=== PATIENT | female | born 1980 | race Caucasian/White ===

== ENCOUNTER → 2021-01-14 14:21 | Outpatient (CLI) | payer BC, SELFPAY ==
--- NOTE | 2021-01-14 14:29 | US_ITS ---
PROCEDURE: US THYROID CLINICAL INDICATION: ABN RESULTS OF THYROID FUNCTION STUDIES COMPARISON: No exams were available for comparison FINDINGS: Right lobe: 1.5cm x 4.6cm x 1.8cm Left lobe: 1.1cm x 4.0cm x 1.6cm Isthmus: Unremarkable at 3 mm Additional findings: There are 2 cysts in the left lobe of the thyroid gland at 2 mm each. IMPRESSION: Mildly enlarged right lobe of the thyroid gland. There are 2 small cysts on the left. Dictated by: William Epps MD 01/15/2021 07:16 William Epps MD in [place] 01/15/2021 07:16
[2021-01-14 16:21] LABS: Anion Gap 15.2 mEq/L (5-15); Blood Urea Nitrogen 6 mg/dl (7-17); Calcium 10.2 mg/dl (8.4-10.2); Carbon Dioxide 23 mmol/L (22.0-30.0); Chloride 105 mmol/L (98-107); Estimated Glomerular Filt Rate 94 ml/min (>60); GFR (African American) 113 ML/MIN (>60); Glucose 102 mg/dl (74-100); Potassium 4.2 mmoL/L (3.5-5.1); Sodium 139 mmol/L (136-145)
[2021-01-16 14:01] LABS: Thyroid Peroxidase Antibodies <9 IU/mL (0-34)
== END ==
PROVIDERS: PCP Nurse Practitioner Family; Visit Provider Nurse Practitioner Family
DX: R94.6 Abnormal results of thyroid function studies (principal)
CPT/HCPCS: 36415; 76536; 80048; 86376

== ENCOUNTER 2021-05-19 14:09 | Emergency (ER) | payer BC, SELFPAY ==
[2021-05-19 14:10] VITALS: BP 181/95; PULSE 78; RESP 16; TEMP 37.7; O2SAT 98; BMI 33.3
--- NOTE | 2021-05-19 14:21 | HMH.EDGENADL ---
ED Disposition Clinical Impression: Hypertensive urgency Headache Qualifiers: Headache type: unspecified Headache chronicity pattern: acute headache Intractability: not intractable Qualified Code(s): R51.9 - Headache, unspecified Disposition: Home, Self-Care Condition on Discharge: Good Instructions: DI for Headache Additional Instructions: Take half of the lisinopril tonight around dinnertime. Take a full dose in the morning. Continue to take it every morning. Monitor your blood pressure once daily unless symptomatic. Return to the emergency department for headache, visual change, nausea/vomiting, chest pain Referrals: Ruthann Ramos [Primary Care Provider] - Time of Disposition: 17:06 - Critical Care Critical Care Time: No Attestation: On , the high probability of a clinically significant, sudden or life threatening deterioration of the following system(s) required my full and direct attention, intervention and personal management. The time I documented below is in addition to time spent performing reported procedures but includes the following listed in this critical care notation. Medical Decision Making - Medical Records Medical records reviewed: Yes: I reviewed the patient's medical records. - Josemanuel Inquiry Pt receiving controlled substance: No Vital Signs: 05/19/21 14:10 05/19/21 15:31 05/19/21 16:01 Temperature 99.8 F H Temperature Source Oral Pulse Rate 65 58 L Pulse Rate [Radial] 78 Respiratory Rate 16 18 20 Blood Pressure 181/85 H 152/87 H Blood Pressure [Right Arm] 181/95 H Blood Pressure Mean 117 108 Blood Pressure Mean [Right Arm] 123 Blood Pressure Position [Right Arm] Sitting 02 Sat by Pulse Oximetry 98 98 98 Oxygen Delivery Method Room Air 05/19/21 16:35 Temperature Temperature Source Pulse Rate 62 Pulse Rate [Radial] Respiratory Rate 20 Blood Pressure 184/101 H Blood Pressure [Right Arm] Blood Pressure Mean Blood Pressure Mean [Right Arm] Blood Pressure Position [Right Arm] 02 Sat by Pulse Oximetry Oxygen Delivery Method - Lab Data Lab results reviewed: Yes: I reviewed the patient's lab results. Lab Results 05/19/21 14:49: WBC 8.7, RBC 3.89 L, Hgb 13.9, Hct 34.4 L, MCV 88.5, MCH 35.7 H, MCHC 40.3 H*, RDW 14.2, Plt Count 299, MPV 7.4, Neut % (Auto) 70.1, Lymph % (Auto) 23.1, [place] % (Auto) 4.3, Eos % (Auto) 1.9, Baso % (Auto) 0.5, Neut # (Auto) 6.1, Lymph # (Auto) 2.0, [place] # (Auto) 0.4, Eos # (Auto) 0.2, Baso # (Auto) 0.1 05/19/21 14:49: Sodium 140, Potassium 3.9, Chloride 106, Carbon Dioxide 25, Anion Gap 12.9, BUN 7, Creatinine 0.70, Estimated Creat Clear 147, Estimated GFR 94, Est GFR ( Amer) 113, Glucose 114 H, Calcium 9.1, Troponin I < 0.01 Result diagrams: 05/19/21 14:49 05/19/21 14:49 Orders (Tests/Meds): ED MEDICATIONS Discontinued Medications Generic Name Dose Route Start Last Admin Trade Name Elisa PRN Reason Stop Dose Admin Acetaminophen 650 mg 05/19/21 15:38 05/19/21 15:48 Acetaminophen 325mg Tab PO 05/19/21 15:39 650 mg ONCE ONE Administration Clonidine HCl 0.1 mg 05/19/21 15:14 05/19/21 15:48 Clonidine 0.1mg Tablet PO 05/19/21 15:15 0.1 mg ONCE ONE Administration Hydralazine HCl 10 mg 05/19/21 16:31 05/19/21 16:33 Hydralazine 20mg/Ml Vial IV 05/19/21 16:32 10 mg ONCE ONE Administration Ketorolac Tromethamine 15 mg 05/19/21 15:38 05/19/21 15:48 Ketorolac 30mg/Ml Vial IV 05/19/21 15:39 15 mg ONCE ONE Administration ORDERS Category Date Time Status Troponin I Q3H Lab 05/19/21 17:30 Ordered - ECG Data Tracing #1 I reviewed this ECG and interpreted as documented below: Sinus rhythm, 60 bpm, no ST elevation or depression, normal intervals, no ectopy. ECG initial impression date: 05/19/21 ECG initial impression time: 16:33 Medical Decision Narrative: 40yo F evaluated for hypertensive urgency and headache. Patient in no acute distress on initial
[2021-05-19 14:56] LABS: Basophils # 0.1 K/mm3 (0-0.2); Basophils % 0.5 % (0.1-2.0); Eosinophils # 0.2 K/mm3 (0.0-0.4); Eosinophils % 1.9 % (0.1-12.0); Hematocrit 34.4 % (37.0-47.0); Hemoglobin 13.9 g/dL (12.2-16.2); Lymphocytes % 23.1 % (10-50); Mean Corpuscular Hemoglobin 35.7 pg (27.0-31.2); Mean Corpuscular Volume 88.5 fl (81-99); Mean Platelet Volume 7.4 fl (7.4-10.4); Monocytes # 0.4 K/mm3 (0.1-1.0); Monocytes % 4.3 % (1.7-9.3); Neutrophils # 6.1 K/mm3 (1.8-7.8); Neutrophils % 70.1 % (37.0-80.0); Platelet Count 299 K/mm3 (142-424); Red Blood Count 3.89 M/mm3 (4.20-5.40); Red Cell Distribution Width 14.2 % (11.5-17.5); White Blood Count 8.7 K/mm3 (4.8-10.8)
[2021-05-19 15:00] LABS: Chloride 106 mmol/L (98-107); Sodium 140 mmol/L (136-145)
[2021-05-19 15:01] LABS: Potassium 3.9 mmoL/L (3.5-5.1)
[2021-05-19 15:03] LABS: Blood Urea Nitrogen 7 mg/dl (7-17); Creatinine Clearance Estimated 147 mL/min (50-200); Estimated Glomerular Filt Rate 94 ml/min (>60); GFR (African American) 113 ML/MIN (>60)
[2021-05-19 15:04] LABS: Anion Gap 12.9 mEq/L (5-15); Calcium 9.1 mg/dl (8.4-10.2); Carbon Dioxide 25 mmol/L (22.0-30.0); Glucose 114 mg/dl (74-100)
[2021-05-19 15:06] LABS: Mean Corpuscular HGB Conc 40.3 g/dL (31.8-35.4)
[2021-05-19 15:17] LABS: Troponin I < 0.01 ng/ml (0.00-0.034)
[2021-05-19 15:31] VITALS: BP 181/85; PULSE 65; RESP 18; O2SAT 98
[2021-05-19 16:01] VITALS: BP 152/87; PULSE 58; RESP 20; O2SAT 98
--- NOTE | 2021-05-19 16:26 | ECG_ITS ---
APPROVED REPORT Exam: Resting ECG HR:60 bpm ECG Measurements Heart Rate 60 AXES AK 140 P 27 QRSd 86 QRS -10 QT 426 T 7 QTc 426 Conclusion Normal sinus rhythm Minimal voltage criteria for LVH, may be normal variant Borderline ECG Electronically signed by : Meño Valdez, 05/20/2021 18:51:57
[2021-05-19 16:35] VITALS: BP 184/101; PULSE 62; RESP 20
[2021-05-19 17:09] VITALS: BP 175/99; PULSE 66; RESP 16; TEMP 36.9; O2SAT 99
== END 2021-05-19 17:10 | disposition home or self-care (01) ==
PROVIDERS: Emergency Provider Family Medicine; PCP Nurse Practitioner Family
DX: I16.0 Hypertensive urgency (principal); F41.8 Other specified anxiety disorders; Z79.899 Other long term (current) drug therapy
CPT/HCPCS: 80048; 84484; 85025; 93005; 99282; 99283

== ENCOUNTER → 2021-10-17 10:16 | Outpatient (CLI) | payer BC, SELFPAY | PROVIDERS: PCP Nurse Practitioner Family; Visit Provider Nurse Practitioner | DX: U07.1 COVID-19 (principal) | CPT/HCPCS: C9803; U0003; U0005 ==

== ENCOUNTER → 2021-10-25 10:05 | Outpatient (CLI) | payer BC, SELFPAY | PROVIDERS: PCP Nurse Practitioner Family; Visit Provider Nurse Practitioner | DX: U07.1 COVID-19 (principal) | CPT/HCPCS: C9803; U0003; U0005 ==

== ENCOUNTER → 2021-10-31 12:34 | Outpatient (CLI) | payer BC, SELFPAY | PROVIDERS: PCP Nurse Practitioner Family; Visit Provider Nurse Practitioner | DX: U07.1 COVID-19 (principal) | CPT/HCPCS: C9803; U0003; U0005 ==

== ENCOUNTER → 2021-12-05 14:12 | Outpatient (POV) | payer BC, SELFPAY ==
[2021-12-05 14:48] VITALS: BP 141/82; PULSE 86; RESP 18; O2SAT 98; BMI 33.6
--- NOTE | 2021-12-06 06:44 | HMH.PMCON ---
Assessment and Plan (1) CRPS (complex regional pain syndrome type I) Status: Chronic Category: Medical Code(s): G90.50 - Complex regional pain syndrome I, unspecified (2) Low back pain Status: Chronic Category: Medical Code(s): M54.50 - Low back pain, unspecified (3) Degenerative joint disease (DJD) of lumbar spine Status: Chronic Category: Medical Code(s): M47.816 - Spondylosis without myelopathy or radiculopathy, lumbar region (4) Lumbar spondylosis Status: Chronic Category: Medical Code(s): M47.816 - Spondylosis without myelopathy or radiculopathy, lumbar region (5) Lumbar facet arthropathy Status: Chronic Category: Medical Code(s): M47.816 - Spondylosis without myelopathy or radiculopathy, lumbar region - Assessment and plan all Dx Assessment and Plan for all problems:: Patient has been referred to our clinic for end of life of stimulator device. She does not want the device removed along with the leads so that she can have a device implanted that is MRI compatible. She was referred to the clinic by the [employer] stimulator bilingual sales representative. Dr. Garibay did implant the device. She is unsure if she has paddle leads. We will send her for an x-ray today to determine the type of leads with the device. The patient does say she wants the leads removed so that she is able to undergo MRI in the future if warranted. We will see the patient back after the x-ray so that Dr. De La Cruz can determine the plan of care. Patient has been instructed to contact the clinic with any concerns before the next appointment. Dr. De La Cruz has reviewed this note and agrees with this plan of care. This note was dictated using voice recognition software and make contain errors or omissions. HPI - Data of Consult Patient: new to practice Requesting Physician: Mackenzie Connolly APRN - Consult Narrative Reason for consult: End of life stimulator History of present illness: Ms. Huffman is a 41 year old female who presents today for consultation for stimulator end-of-life. Patient says that Dr. Garibay implanted a [employer] stimulator approximately 5 years ago. She was seeing a pain management provider but has since retired. She says that the device was implanted for CRPS type one of her lower extremity. Patient says that she had a fall at her workplace fracturing her knee. She did undergo surgical intervention but continued to have significant pain. She does also have low back pain with bulging disks. She says that the stimulator has helped both areas until the last year. The device no longer charges appropriately. She is currently seeing Dr. Mcfarland for injective therapy in her lumbar spine. Most recently she did undergo RFA of lumbar spine which is giving her significant relief. She is here today to discuss possible change out of device. She was referred to our clinic by the [employer] stimulator bilingual sales representative. Patient says that she would like the device as well as the leads removed so that she can undergo implant of an MRI compatible device. CC: Mackenzie Connolly APRN [facility] History I have reviewed the patient's past medical history: Yes Medical History: Reports:: Anxiety, Depression, Hypertension *Have you ever received a pneumonia vaccine?: No *Have you received a flu vaccine this season?: No Other Surgeries: Yes: Cholecystectomy, Other - *Social History Smoking Status: Never smoker Alcohol Intake: never Substance Use Type: denies use *Occupational Status:: employed *Travel in the last 8 weeks: None - Psychiatric History Pschychiatric History:: Reports:: Anxiety, Depression Family Hx:: Hypertension, Diabetes Review of Systems - Review of Systems Review of Systems General: No recent weight changes, no fever, no sleep disturbances Respiratory: No cough, no shortness of air, no recurring pulmonary infections Cardiovascular/peripheral vascular: No chest pain, no palpitations, no edema, no sh
== END ==
PROVIDERS: Visit Provider Clinical Nurse Specialist Family Health
DX: G90.50 Complex regional pain syndrome I, unspecified (principal); M47.816 Spondylosis without myelopathy or radiculopathy, lumbar region
CPT/HCPCS: 99202; G0463

== ENCOUNTER → 2021-12-05 15:15 | Outpatient (CLI) | payer BC, SELFPAY ==
--- NOTE | 2021-12-05 15:24 | XR_ITS ---
FINAL REPORT CLINICAL HISTORY: . check pain stim leads FINDINGS: THORACIC SPINE A single view was obtained. A thoracic stimulator device resides at the T9-T10 level. There is no acute fracture. There is no malalignment. There is mild thoracic scoliosis convex to the right. The disc spaces are preserved. There is no soft tissue abnormality. IMPRESSION: Thoracic stimulator device resides at the T9-T10 level. LUMBAR SPINE A single view was obtained. A stimulator device is present in the superior right gluteal region. There is no acute fracture. There is no malalignment. There are postoperative changes from right SI joint fusion. An IUD is present in the pelvis. There is a large amount of stool throughout the colon. IMPRESSION: A stimulator device resides in the superior right gluteal region. Reviewed, Interpreted and Dictated by Yvon Busby MD Transcribed by Michelle Nowak Authenticated by Yvon Busby MD on 12/05/2021 04:39:[address] [facility]
== END ==
PROVIDERS: PCP Nurse Practitioner Family; Visit Provider Clinical Nurse Specialist Family Health
DX: M54.6 Pain in thoracic spine (principal)
CPT/HCPCS: 72084

== ENCOUNTER → 2022-01-12 11:28 | Outpatient (POV) | payer BC, SELFPAY ==
[2022-01-12 13:57] VITALS: BP 127/77; PULSE 72; RESP 20; TEMP 36.9; O2SAT 98; BMI 33.6
--- NOTE | 2022-01-12 14:37 | HMH.PAINSOAP ---
[facility] Pain Management SOAP Note Subjective:: Is very pleasant 41-year-old white female who presents for follow-up. She is currently being treated for degenerative disc disease lumbar spine with lumbar radiculopathy. She has a spinal cord stimulator with the [employer] system with end-of-life stimulator device. She is interested in having the device (3 and leads) exchanged to an MRI compatible system. She recently underwent an x-ray at the last clinic visit and she has paddle leads in place. Dr. Garibay implanted the spinal cord stimulator. She rates her pain today is a 6 out of 10. Objective:: General: Alert and oriented x3, no acute distress, pleasant and cooperative Lungs: Resps E/U, symmetric chest expansion Eyes: PERRL Musculoskeletal: limited flexion and extension of the lumbar spine secondary to pain. Deep tendon reflexes were normal in bilateral lower extremities. Motor exam was grossly intact in the bilateral lower extremities, antalgic gait noted. Neurological: Speech is clear, health care facilities inspector equal, no gross sensory deficits Assessment:: Degenerative disc disease of lumbar spine with lumbar radiculopathy Plan:: Discussed with the patient that since she does have paddle leads in place will refer her to Dr. Garibay with neurosurgery for further evaluation and SCS lead and battery exchange to an MRI compatible system. We will follow-up with this patient in 1 month for reassessment of her chronic pain symptoms. Josemanuel and prior drug screens were reviewed and appropriate. [facility] History Medical History: Reports:: Anxiety, Depression, Hypertension Denies:: Cancer, Diabetes Mellitus Type 1, Diabetes Mellitus Type 2, Internal Pacemaker, MRSA *Have you ever received a pneumonia vaccine?: No *Have you received a flu vaccine this season?: No Other Surgeries: Yes: Cholecystectomy, Other. No: Pacemaker Amputation: No Fractures: Yes - *Social History Smoking Status: Light tobacco smoker Tobacco Type: cigarettes # Packs/Day (cigarettes): 1 Alcohol Intake: current Alcohol Intake Frequency:: holidays/special occasions only Substance Use Type: denies use *Occupational Status:: other Housing: house Household Members: spouse, family *Travel in the last 8 weeks: None - Psychiatric History Pschychiatric History:: Reports:: Anxiety, Depression Family Hx:: Hypertension, Diabetes
== END ==
PROVIDERS: Visit Provider Anesthesiology Pain Medicine
DX: M51.16 Intervertebral disc disorders with radiculopathy, lumbar region (principal)
CPT/HCPCS: 99212; G0463

== ENCOUNTER → 2022-02-13 10:03 | Outpatient (POV) | payer BC, SELFPAY ==
[2022-02-13 10:15] VITALS: BP 127/79; PULSE 66; RESP 17; TEMP 36.7; O2SAT 98; BMI 33.6
--- NOTE | 2022-02-13 12:33 | HMH.PAINSOAP ---
[facility] Pain Management SOAP Note Subjective:: Patient is a pleasant 41-year-old female who presents today for follow-up. She is currently being treated for degenerative disc disease of lumbar spine with lumbar radiculopathy symptoms, and chronic left knee pain. In 2012, patient says that she broke her kneecap. This was fixed by Dr. Mohinder Bain in [place]. However, she continued to have nerve pain around her kneecap because of her surgery. Then about 5 years ago, she went to see a pain specialist in [place]. She was recommended to have a spinal cord stimulator. She saw Dr. Whitmore who place a [employer] spinal cord stimulator with paddle leads about 5 years ago. She has been having significant relief from the spinal cord stimulator however it is at end-of-life. She presents to us to see if we can change her battery. Additionally, she was unsure if her paddle leads are MRI compatible and wants to know we can change it to something that is MRI compatible. Since then, we have reached out with the [employer] representatives who said that they have looked up her paddle leads and they are MRI compatible. Rates pain at 6 out of 10 Review of Systems: General: No recent weight changes, no fever, no sleep disturbances Respiratory: No cough, no shortness of air, no recurring pulmonary infections Cardiovascular/peripheral vascular: No chest pain, no palpitations, no edema, no shortness of breath Gastrointestinal: No new onset incontinence, normal bowel movements reported Genitourinary: No new onset incontinence Musculoskeletal: Low back pain, left knee pain Psychiatric: [Normal mood/affect] Neurological: [Denies weakness in extremities], [denies balance issues] Objective:: Physical Exam: General: Alert and oriented x3, no acute distress, pleasant and cooperative, [on room air] Lungs: Respirations even and unlabored, symmetrical chest expansion Eyes: PERRL Musculoskeletal: Flexion and extension of lumbar [spine] somewhat guarded secondary to pain, [antalgic gait noted] Neurological: Speech clear, no gross sensory deficit Assessment:: Degenerative disease of lumbar spine with lumbar radiculopathy symptoms Chronic left knee pain Plan:: Patient presents with degenerative disc disease of the lumbar spine with lumbar radiculopathy symptoms and intractable left knee pain secondary to knee surgery. Patient has tried and failed several conservative therapies including oral medication, injective therapy, physical therapy and at home exercises for greater than 6 weeks. She has a [employer] spinal cord stimulator that was placed 5 years ago. This has been helping manage her pain significantly. She is not on any scheduled medications. However, her spinal cord stimulator is at end-of-life and need to be changed. We will schedule the patient for a battery change with a [employer] spinal cord stimulator. Risks and benefits of the procedure have been explained to the patient. Patient would like to proceed with the procedure. Patient has been instructed to contact the clinic with any concerns before the next appointment. Dr. De La Cruz has reviewed this note and agrees with this plan of care. This note was dictated using voice recognition software and make contain errors or omissions. [facility] History Medical History: Reports:: Anxiety, Depression, Hypertension Denies:: Cancer, Diabetes Mellitus Type 1, Diabetes Mellitus Type 2, Internal Pacemaker, MRSA *Have you ever received a pneumonia vaccine?: No *Have you received a flu vaccine this season?: No Other Surgeries: Yes: Cholecystectomy, Other. No: Pacemaker Amputation: No Fractures: Yes - *Social History Smoking Status: Light tobacco smoker Tobacco Type: cigarettes # Packs/Day (cigarettes): 1 Alcohol Intake: current Alcohol Intake Frequency:: holidays/special occasions only Substance Use Type: denies use *Occupational Status:: employed Housing: house Household Me
== END ==
PROVIDERS: Visit Provider Student in an Organized Health Care Education/Training Program
DX: M51.16 Intervertebral disc disorders with radiculopathy, lumbar region (principal); M25.562 Pain in left knee; G89.29 Other chronic pain
CPT/HCPCS: 99212; G0463

== ENCOUNTER → 2022-03-13 15:29 | Outpatient (CLI) | payer BC, SELFPAY ==
[2022-03-13 16:38] LABS: Basophils # 0.2 K/mm3 (0-0.2); Basophils % 1.8 % (0.1-2.0); Eosinophils # 0.1 K/mm3 (0.0-0.4); Eosinophils % 0.9 % (0.1-12.0); Hematocrit 41.4 % (37.0-47.0); Hemoglobin 13.6 g/dL (12.2-16.2); Lymphocytes # 2.4 K/mm3 (0.7-4.5); Lymphocytes % 26.6 % (10-50); Mean Corpuscular HGB Conc 32.7 g/dL (31.8-35.4); Mean Corpuscular Hemoglobin 30.6 pg (27.0-31.2); Mean Corpuscular Volume 93.4 fl (81-99); Mean Platelet Volume 7.7 fl (7.4-10.4); Monocytes # 0.6 K/mm3 (0.1-1.0); Monocytes % 6.1 % (1.7-9.3); Neutrophils # 5.9 K/mm3 (1.8-7.8); Neutrophils % 64.7 % (37.0-80.0); Platelet Count 400 K/mm3 (142-424); Red Blood Count 4.43 M/mm3 (4.20-5.40); Red Cell Distribution Width 13.6 % (11.5-17.5); White Blood Count 9.1 K/mm3 (4.8-10.8)
[2022-03-13 17:21] LABS: Anion Gap 12.3 mEq/L (5-15); Blood Urea Nitrogen 8 mg/dl (7-17); Calcium 9.3 mg/dl (8.4-10.2); Carbon Dioxide 26 mmol/L (22.0-30.0); Chloride 105 mmol/L (98-107); Estimated Glomerular Filt Rate 80 ml/min (>60); GFR (African American) 97 ML/MIN (>60); Glucose 120 mg/dl (74-100); Potassium 4.3 mmoL/L (3.5-5.1); Sodium 139 mmol/L (136-145)
== END ==
PROVIDERS: Visit Provider Anesthesiology
DX: Z01.812 Encounter for preprocedural laboratory examination (principal); Z11.52 Encounter for screening for COVID-19; M51.36 Other intervertebral disc degeneration, lumbar region
CPT/HCPCS: 36415; 80048; 85025; C9803; U0003; U0005

== ENCOUNTER 2022-03-14 06:59 | Day surgery (SDC) | payer BC, SELFPAY ==
[2022-03-10 15:16] VITALS: BMI 33.6
[2022-03-14 07:40] VITALS: BP 123/71; PULSE 65; RESP 18; TEMP 36.3; O2SAT 99
[2022-03-14 07:48] LABS: Urine Pregnancy, HCG Qual. Negative (Negative)
--- NOTE | 2022-03-14 08:27 | HMH.ANESCL ---
[facility] Anesthesia Checklist - Patient Identification Patient Identification: Arm Band - Structural Data Admitted From: Home Planned Operative Procedure/s: SCS lead revision Consent for Planned Operative Procedure(s) Verified: Yes - NPO Status Verified Time NPO: 00:00 - Additional verifications Anesthesia Reactions: No Hx Blood Transfusions: No Blood Transfusion Reaction: No - Airway Assessment C-Spine Mobility Assessed: Yes TMJ Mobility Assessed: Yes Dentition: Good Dentition - Neurological Assessment Level of Consciousness: Awake Hx Seizures: No Numbness or tingling in extremities: No - Anesthesia Plan Anesthesia Risk discussed: Yes Anesthesia Plan: Verified ASA Class: II Anesthesia Type: MAC [facility] History I have reviewed the patient's past medical history: Yes Medical History: Reports:: Anxiety, Depression, Hypertension Denies:: Cancer, Diabetes Mellitus Type 1, Diabetes Mellitus Type 2, Internal Pacemaker, MRSA, Seizures *Have you ever received a pneumonia vaccine?: No *Have you received a flu vaccine this season?: No Other Medical History: Denies: Blood Transfusion Reaction Anesthesia experience/problems:: None Other Surgeries: Yes: Cholecystectomy, Other. No: Pacemaker Amputation: No Fractures: Yes - *Social History Last grade of school completed: Advanced degree Smoking Status: Light tobacco smoker Tobacco Type: cigarettes # Packs/Day (cigarettes): 1 Alcohol Intake: current Alcohol Intake Frequency:: holidays/special occasions only Substance Use Type: denies use *Occupational Status:: employed Housing: house Household Members: spouse, family *Travel in the last 8 weeks: None - Psychiatric History Pschychiatric History:: Reports:: Anxiety, Depression Family Hx:: Hypertension, Diabetes
[2022-03-14 09:46] VITALS: BP 140/91; PULSE 80; RESP 18; TEMP 36.5; O2SAT 96
--- NOTE | 2022-03-14 09:48 | HMH.OPNOTE ---
Date of procedure: 03/14/22 Pre-op Diagnosis:: Degenerative disc disease of lumbar spine with lumbar radiculopathy symptoms and end-of-life spinal cord stimulator generator with surgical paddle leads in place Post-op Diagnosis:: Same Procedure performed:: Replacement spinal cord stimulator generator Surgeon:: Aldo De La Cruz MD MARINE WATER TENDER:: Other Anesthesia: MAC Estimated blood loss (mL): 2 Clinical Note:: This patient is a pleasant 41-year-old white female who we are treating for degenerative disc disease of lumbar spine with lumbar radiculopathy symptoms. She currently has a [employer] spinal cord stimulator in place with paddle leads. This was placed approximately 5 years ago. Her leads are MRI compatible. Her generator is nearing end-of-life. We will replace her generator today with a [employer] alpha wave technical report writer MRI compatible battery. Operative findings:: None Operative note:: Informed consent was obtained risk and benefits of the procedure explained to the patient. Patient was taken to the operating room placed prone on the procedure table. She was prepped and draped in sterile fashion. The skin and subcutaneous tissues overlying the battery were anesthetized using lidocaine. I made an incision and dissected out the existing battery. I took the leads out and replaced the battery with the alpha wave technical report writer battery. We put leads in the battery and checked impedances are found to be okay. The battery was placed in the pocket the pocket was irrigated with antibiotic solution. The incision was then closed with 2-0 Vicryl followed by 4-0 nylon. A wound VAC was placed over the incision. The patient was taken recovery in stable condition. Patient tolerated procedure well with no complications. Patient was discharged home neurologically intact with good relief of pain symptoms. Patient was programmed by the [employer] special service representative with good stimulation in all areas of pain. Plan and disposition: We will follow-up with this patient in 1 week for wound check and reprogramming. We will follow-up in 2 weeks for suture removal. If she has any problems or questions she is to call us back in the pain clinic. Condition: stable Disposition: PACU Complications:: None
[2022-03-14 10:01] VITALS: BP 121/72; PULSE 71; RESP 18; O2SAT 95
[2022-03-14 10:16] VITALS: BP 127/75; PULSE 73; RESP 18; O2SAT 98
[2022-03-14 10:46] VITALS: BP 134/85; PULSE 67; RESP 18; O2SAT 96
[2022-03-14 11:16] VITALS: BP 112/76; PULSE 65; RESP 18; TEMP 36.7; O2SAT 97
== END 2022-03-14 11:16 | disposition home or self-care (01) ==
LOC: OR 07:01
PROVIDERS: PCP Nurse Practitioner Family; Visit Provider Anesthesiology
PROC: (CPT 63685; principal; 2022-03-14 08:30)
DX: M51.16 Intervertebral disc disorders with radiculopathy, lumbar region (principal); Z96.82 Presence of neurostimulator; I10 Essential (primary) hypertension; F41.9 Anxiety disorder, unspecified; F32.A Depression, unspecified; Z83.3 Family history of diabetes mellitus; Z82.49 Family history of ischemic heart disease and other diseases of the circulatory system; Z88.8 Allergy status to other drugs, medicaments and biological substances
CPT/HCPCS: 63685; 81025; 96374; C1820; J2405

== ENCOUNTER → 2022-03-20 09:15 | Outpatient (POV) | payer BC, SELFPAY ==
[2022-03-20 09:17] VITALS: BP 118/70; PULSE 81; RESP 18; TEMP 37.3; O2SAT 97; BMI 33.6
--- NOTE | 2022-03-20 11:07 | P.CONS_ITS ---
[facility] Pain Management SOAP Note Subjective:: Patient is a pleasant 41-year-old female who presents today for follow-up. Patient is currently being treated for degenerative disc disease of the lumbar spine with lumbar radiculopathy symptoms. Patient's [employer] spinal cord stimulator generator was at end-of-life. Patient is here today to follow- up after the replacement of this generator on March 14, 2022. Patient has surgical paddle leads in place. Patient says that her stimulator is working well and still providing significant relief. Denies any issues after the procedure. We will remove the wound VAC today. Rates pain as 5 out of 10. Patient is not on any scheduled medications. [facility] #[id number] Review of Systems: General: No recent weight changes, no fever, no sleep disturbances Respiratory: No cough, no shortness of air, no recurring pulmonary infections Cardiovascular/peripheral vascular: No chest pain, no palpitations, no edema, no shortness of breath Gastrointestinal: No new onset incontinence, normal bowel movements reported Genitourinary: No new onset incontinence Musculoskeletal: Low back pain Psychiatric: [Normal mood/affect] Neurological: [Denies weakness in extremities], [denies balance issues] Objective:: Physical Exam: General: Alert and oriented x3, no acute distress, pleasant and cooperative Lungs: Respirations even and unlabored, symmetrical chest expansion Eyes: PERRL Musculoskeletal: Flexion and extension of lumbar [spine] somewhat guarded secondary to pain, [antalgic gait noted] Skin: Surgical incisions are healing well and well approximated. There is no drainage, erythema, and swelling. Neurological: Speech clear, no gross sensory deficit Assessment:: Degenerative disc disease of the lumbar spine with lumbar radiculopathy symptoms Status post replacement of spinal cord stimulator generator Plan:: Patient continues to have significant relief after the replacement of the patient's spinal cord stimulator generator. Wound VAC was removed today. Surgical incisions are healing well and well approximated. There is no drainage, erythema, and swelling. We will follow-up with this patient in 2 weeks for suture removal. Patient will also see one of the [employer] representatives during her follow-up appointment. Patient has been instructed to contact the clinic with any concerns before the next appointment. Dr. De La Cruz has reviewed this note and agrees with this plan of care. This note was dictated using voice recognition software and make contain errors or omissions. [facility] History Medical History: Reports:: Anxiety, Depression, Hypertension Denies:: Cancer, Diabetes Mellitus Type 1, Diabetes Mellitus Type 2, Internal Pacemaker, MRSA, Seizures *Have you ever received a pneumonia vaccine?: No *Have you received a flu vaccine this season?: No Other Medical History: Denies: Blood Transfusion Reaction Other Surgeries: Yes: Cholecystectomy, Other. No: Pacemaker Amputation: No Fractures: Yes - *Social History Smoking Status: Light tobacco smoker Tobacco Type: cigarettes # Packs/Day (cigarettes): 1 Alcohol Intake: current Alcohol Intake Frequency:: holidays/special occasions only Substance Use Type: denies use *Occupational Status:: employed Housing: house Household Members: spouse, family *Travel in the last 8 weeks: None - Psychiatric History Pschychiatric History:: Reports:: Anxiety, Depression Family Hx:: Hypertension, Diabetes
== END ==
PROVIDERS: Visit Provider Student in an Organized Health Care Education/Training Program
DX: M51.16 Intervertebral disc disorders with radiculopathy, lumbar region (principal)
CPT/HCPCS: 99212; G0463

== ENCOUNTER → 2022-04-04 09:22 | Outpatient (POV) | payer BC, SELFPAY ==
[2022-04-04 09:44] VITALS: BP 121/72; PULSE 62; RESP 18; TEMP 36.6; O2SAT 96; BMI 33.6
--- NOTE | 2022-04-04 09:46 | P.CONS_ITS ---
[facility] Pain Management SOAP Note Subjective:: Is a pleasant 41-year-old female who recently had a battery change for her spinal cord stimulator. She is doing fantastic. She had a recent visit with the spinal cord stimulator rep. Her coverage is fantastic. She is not having any significant pain. Patient's wound looks normal. Patient's Josemanuel [id number] is been reviewed and appropriate. Objective:: Patient is awake alert [place] x3. No acute distress. Flexion-extension lumbar spine normal. Deep tendon reflexes upper and lower extremities normal. Motor strength upper and lower extremities normal. There is no gross sensory deficit. Gait is normal. Assessment:: Degenerative disc disease lumbar spine multilevels. Lumbar radiculopathy symptoms. Plan:: Patient will follow up with us on an as-needed basis. [facility] History Medical History: Reports:: Anxiety, Depression, Hypertension Denies:: Cancer, Diabetes Mellitus Type 1, Diabetes Mellitus Type 2, Internal Pacemaker, MRSA, Seizures *Have you ever received a pneumonia vaccine?: No *Have you received a flu vaccine this season?: No Other Medical History: Denies: Blood Transfusion Reaction Other Surgeries: Yes: Cholecystectomy, Other. No: Pacemaker Amputation: No Fractures: Yes - *Social History Smoking Status: Light tobacco smoker Tobacco Type: cigarettes # Packs/Day (cigarettes): 1 Alcohol Intake: current Alcohol Intake Frequency:: holidays/special occasions only Substance Use Type: denies use *Occupational Status:: employed Housing: house Household Members: spouse, family *Travel in the last 8 weeks: Inside the [place] - Psychiatric History Pschychiatric History:: Reports:: Anxiety, Depression Family Hx:: Hypertension, Diabetes
== END ==
PROVIDERS: Visit Provider Nurse Anesthetist, Certified Registered
DX: M51.16 Intervertebral disc disorders with radiculopathy, lumbar region (principal)
CPT/HCPCS: 99213; G0463

== ENCOUNTER → 2022-10-02 08:45 | Outpatient (POV) | payer BC, SELFPAY ==
[2022-10-02 08:54] VITALS: BP 137/80; PULSE 75; RESP 18; O2SAT 97; BMI 33.6
--- NOTE | 2022-10-02 09:24 | A.OFFVIS_ITS ---
[facility] Pain Management SOAP Note Subjective:: Patient is a pleasant 42-year-old female who presents today for follow-up. We are currently treating the patient for degenerative disc disease of lumbar spine with lumbar radiculopathy symptoms, post spinal cord stimulator generator replacement. Today the patient rates her pain a 4 out of 10. Patient denies any new trauma or injury. Patient denies any change location or type of pain she experiences. Patient states her pain is in her neck and low back. Patient states she does frequently get injections at her orthopedic doctor and her last 1 was a cervical epidural. Patient states that this made her pain symptoms worse and is interested in injections we may be able to provide to improve her symptoms. Patient states that her spinal cord stimulator is doing well and does not need reprogramming. Patient states that she spoke with the [employer] medical collections representative just last week. Patient is currently prescribed gabapentin 300 mg 3 times a day by Dr. Juliane Hernandez. Patient denies any side effects from this medication. She states this medication does help manage her neuropathy symptoms. Patient states she has not had any recent imaging with our hospital however she has had some at her orthopedic physician's office. Her Josemanuel is [id number]. It has been reviewed and appropriate. Review of Systems: General: No recent weight changes, no fever, no sleep disturbances Respiratory: No cough, no shortness of air, no recurring pulmonary infections Cardiovascular/peripheral vascular: No chest pain, no palpitations, no edema, no shortness of breath Gastrointestinal: No new onset incontinence, normal bowel movements reported Genitourinary: No new onset incontinence Musculoskeletal: Low back pain, neck pain Psychiatric: [Normal mood/affect] Neurological: [Denies weakness in extremities], [denies balance issues] Objective:: Physical Exam: General: Alert and oriented x3, no acute distress, pleasant and cooperative Lungs: Respirations even and unlabored, symmetrical chest expansion Eyes: PERRL Musculoskeletal: Flexion and extension of cervical, lumbar [spine] somewhat guarded secondary to pain, [antalgic gait noted] Neurological: Speech clear, no gross sensory deficit Assessment:: Degenerative disc disease of cervical and lumbar spine with cervical and lumbar radiculopathy symptoms, post spinal cord stimulator generator replacement Plan:: Patient is experiencing significant pain in her neck and low back during today's visit. Patient did have limited range of motion of her cervical and lumbar spine. I have discussed with the patient that we will get her to sign a release and get a copy of her imaging. I have counseled the patient that she may benefit from a epidural injection. Risk and benefits were discussed with the patient. She would like to proceed forward with this plan of care. I will wait until I have imaging and contact the patient via telephone to confirm what level epidural would be most beneficial. Patient has been instructed to contact the clinic with any concerns before the next appointment. Dr. De La Cruz has reviewed this note and agrees with this plan of care. This note was dictated using voice recognition software and make contain errors or omissions. PFSH PFSH Social History Smoking Status: Light tobacco smoker tobacco type: cigarettes packs per day: 1 alcohol intake: current substance use type: denies use current occupational status: employed Travel in the last 8 weeks: None household members: spouse and family housing: house caffeine: Yes
== END ==
PROVIDERS: Visit Provider Nurse Practitioner Family
DX: M51.16 Intervertebral disc disorders with radiculopathy, lumbar region (principal); M50.10 Cervical disc disorder with radiculopathy, unspecified cervical region; Z72.0 Tobacco use
CPT/HCPCS: 99212; G0463

== ENCOUNTER → 2023-01-01 15:02 | Outpatient (POV) | payer BC, SELFPAY ==
--- NOTE | 2023-01-01 15:20 | EXP.PAIN.SOA ---
[facility] Pain Management SOAP Note Subjective:: Patient is a pleasant 42-year-old female who presents today for follow-up. We are currently treating the patient for degenerative disc disease of lumbar spine with lumbar radiculopathy symptoms, spinal cord stimulator generator replacement with surgical paddle leads in place. Today she rates her pain a 7 out of 10. Patient denies any new trauma or injury. Patient denies any change location or type of pain she experiences. Patient continues to have significant low back pain as well as upper back pain. Patient does describe this as a aching, throbbing sensation that is worse with increased activity. Patient has been having injections done by [facility]. Patient states that she has had a lumbar RFA that did provide significant improvement however they are not as effective as they initially were. Patient states she also recently had a cervical epidural that made her cervical symptoms worse. Patient states that on November 27 she did have a medial branch block of her cervical spine however this only lasted a few days. Patient does have a spinal cord stimulator in place by [employer]. Patient states this does do well for some of her lower leg radicular symptoms. Patient states that she has not needed additional reprogramming and states that she does have the representatives name and number to contact when needed. Patient has been on gabapentin 300 mg 3 times a day in the past however she does not take this on a regular basis. Her Josemanuel is [id number]. Its been reviewed and appropriate. Review of Systems: General: No recent weight changes, no fever, no sleep disturbances Respiratory: No cough, no shortness of air, no recurring pulmonary infections Cardiovascular/peripheral vascular: No chest pain, no palpitations, no edema, no shortness of breath Gastrointestinal: No new onset incontinence, normal bowel movements reported Genitourinary: No new onset incontinence Musculoskeletal: Low back pain, neck pain Psychiatric: [Normal mood/affect] Neurological: [Denies weakness in extremities], [denies balance issues] Objective:: Physical Exam: General: Alert and oriented x3, no acute distress, pleasant and cooperative Lungs: Respirations even and unlabored, symmetrical chest expansion Eyes: PERRL Musculoskeletal: Flexion and extension of cervical, lumbar [spine] somewhat guarded secondary to pain, [antalgic gait noted] Neurological: Speech clear, no gross sensory deficit ORT score updated with low risk History of depression Assessment:: Degenerative disc disease of lumbar spine with lumbar radiculopathy symptoms, spinal cord stimulator generator replaced with surgical paddle leads in place Plan:: Patient is experiencing significant pain in her low back and neck with limited range of motion. I have discussed with the patient that she may benefit from a pain pump trial. Risk and benefits were discussed with the patient and she would like to proceed forward with this plan of care. We will submit for a psychiatric evaluation at today's visit with the plan to proceed forward with the trial in the future if she is deemed an appropriate candidate. Patient will follow-up back in clinic following her psychiatric evaluation. Patient has been instructed to contact the clinic with any concerns before the next appointment. Dr. De La Cruz has reviewed this note and agrees with this plan of care. This note was dictated using voice recognition software and make contain errors or omissions. [facility] Disclaimer: The information contained in this section may have been updated after the patient was seen, as this information can be updated by other users. Social History Smoking Status: Light tobacco smoker tobacco type: cigarettes packs per day: 1 alcohol intake: current substance use type: denies use current occupational status: employed Travel in the last 8 weeks: None household members: spouse and fam
[2023-01-01 15:47] VITALS: BP 103/66; PULSE 68; RESP 18; O2SAT 99; BMI 33.3
== END ==
PROVIDERS: PCP Nurse Practitioner Family; Visit Provider Nurse Practitioner Family
DX: M51.16 Intervertebral disc disorders with radiculopathy, lumbar region (principal); Z96.82 Presence of neurostimulator; Z72.0 Tobacco use; Z79.899 Other long term (current) drug therapy
CPT/HCPCS: 99212; G0463

== ENCOUNTER → 2023-03-07 10:24 | Outpatient (POV) | payer BC, SELFPAY ==
--- NOTE | 2023-03-07 10:45 | EXP.PAIN.SOA ---
[facility] Pain Management SOAP Note Subjective:: Patient is a pleasant 42-year-old female who presents today for follow-up and medication refill. We are currently treating the patient for degenerative disc disease of lumbar spine with lumbar radiculopathy symptoms, spinal cord stimulator generator replacement with surgical paddle leads in place. Today she rates her pain a 6 out of 10. Patient denies any new trauma or injury. Patient denies any change location or type of pain she experiences. Patient continues to have significant back pain and right shoulder pain that is worse with increased activity. She does state this is an aching, throbbing sensation and does interfere with her ability to perform activities of daily living such as cooking and cleaning or even simple ambulation or getting ready in the morning. Patient has recently been to an orthopedic doctor who does believe her right shoulder pain is more related to bursitis. Patient cannot tolerate steroid injections due to a previous reaction. Patient was recently started on Vioxx however she states she has not had significant relief with this medication. Patient did recently complete her psychiatric evaluation and was deemed an appropriate candidate for a pain pump trial. Patient does have a [employer] spinal cord stimulator in place and at this time she is not requesting additional reprogramming. Patient is managed with gabapentin 300 mg 3 times a day from an outside provider. She is requesting we take over this medication. She states that this provider is no longer sending in this medication. Patient is also on tizanidine 4 mg daily however she states that she has been on this for years and has not noticed significant relief over time. Her Josemanuel is [id number]. Its been reviewed and appropriate. Review of Systems: General: No recent weight changes, no fever, no sleep disturbances Respiratory: No cough, no shortness of air, no recurring pulmonary infections Cardiovascular/peripheral vascular: No chest pain, no palpitations, no edema, no shortness of breath Gastrointestinal: No new onset incontinence, normal bowel movements reported Genitourinary: No new onset incontinence Musculoskeletal: Low back pain, right shoulder pain Psychiatric: [Normal mood/affect] Neurological: [Denies weakness in extremities], [denies balance issues] Objective:: Physical Exam: General: Alert and oriented x3, no acute distress, pleasant and cooperative Lungs: Respirations even and unlabored, symmetrical chest expansion Eyes: PERRL Musculoskeletal: Flexion and extension of lumbar [spine] somewhat guarded secondary to pain, [antalgic gait noted] Neurological: Speech clear, no gross sensory deficit [facility] 02/26/2023 X-ray right shoulder Findings: Three-view exam. No acute displaced fracture or dislocation identified. There is minimal degenerative changes. Soft tissues are unremarkable. Assessment:: Degenerative disc disease of lumbar spine with lumbar radiculopathy symptoms, spinal cord stimulator generator replacement with paddle leads in place Plan:: Patient continues to have significant pain in her low back along with her right shoulder with limited range of motion. Patient has tried and failed conservative therapy such as oral medications heat and ice, topicals, physical therapy and at home exercise and stretching for longer than 6 weeks. Patient did have a psychological evaluation and was deemed an appropriate candidate for a pain pump trial. I will send in refills on her gabapentin 300 mg 3 times a day and change her tizanidine to methocarbamol 500 mg twice daily and provide a 2-week supply of this medication. Patient will be scheduled for a pain pump trial and we will contact her once we have approval from insurance. Patient has been instructed to contact the clinic with any concerns before the next appointment. Dr. De La Cruz has reviewed this note and agrees with this plan of care. This note
[2023-03-07 10:48] VITALS: BP 125/78; PULSE 75; RESP 18; O2SAT 97; BMI 35.4
== END | disposition home or self-care (01) ==
PROVIDERS: PCP Nurse Practitioner Family; Visit Provider Nurse Practitioner Family
DX: M51.16 Intervertebral disc disorders with radiculopathy, lumbar region (principal); Z96.82 Presence of neurostimulator
CPT/HCPCS: 99212; G0463

== ENCOUNTER 2023-03-23 09:35 | Day surgery (SDC) | payer BC, SELFPAY ==
[2023-03-23] VITALS (7 sets, daily range): BP systolic 103–138; BP diastolic 64–97; PULSE 58–67; RESP 18–20; O2SAT 95–97; BMI 34.9
--- NOTE | 2023-03-23 10:49 | EXP.PAIN.PRO ---
Procedure Date: 03/23/23 Time: 10:50 Anesthesiologist:: Aldo De La Cruz MD Complications:: None Pre-procedure Diagnosis:: Degenerative disc disease of lumbar spine with lumbar radiculopathy symptoms. Degenerative disc disease of the cervical spine with cervical radicular symptoms. Post-procedure Diagnosis:: Same Indications for Procedure:: This patient is a pleasant 42-year-old white female who we are treating for neck pain and low back pain with cervical and lumbar radiculopathy symptoms. She does have a [employer] spinal cord stimulator in place with paddle leads. This does help her radicular symptoms. However she is does have continued back pain. She has failed all previous conservative treatments including injections, oral medications, physical therapy and she is not a candidate for any surgery. Procedure Details:: Pain pump trial Informed consent was obtained and the risk and benefits of the procedure was explained to the patient. The patient was taken to the procedure room and placed prone on the procedure table. Patient was prepped and draped in sterile fashion. C-arm fluoroscopy was used to view the lumbar spine. The skin and subcutaneous tissues were anesthetized using lidocaine. I placed a 18-gauge spinal needle into the L4-5 interspace and advanced until clear CSF was obtained. After this intrathecal catheter was inserted and advanced very easily to the L1 vertebral body. The needle was withdrawn. We were able to freely withdraw clear CSF through the catheter. We then injected intrathecal opioid single shot bolus of 25 mcg followed by saline and followed by the previous CSF that was withdrawn. The needle and catheter were then removed and a Band-Aid was placed. Patient tolerated the procedure well with no complications. We reevaluated the patient after 30 minutes to 1 hour. She was also reassessed by physical therapy, patient was 60 to 70% better and she was much more functional. She wants proceed with permanent placement. Patient was discharged home neurologic intact with good relief of pain symptoms. We will plan on permanent placement with intrathecal morphine 1 mg per mall to start at 0.1 mg/day. Catheter tip will be at the T8 vertebral body.. Plan and Disposition:: We will follow-up with this patient to assess efficacy of this trial we will plan on permanent placement with intrathecal morphine 1 mg per mll. Catheter tip will be at the T8 vertebral body. We will start at 0.1 mg/day.
--- NOTE | 2023-03-23 11:22 | PC.NURSE ---
1005-Pt ambulated back to bay, accompanied by nursing staff. lumbar dressing c/d/i. VSS, no c/o pain. pt without needs or concerns 1020-pt resting in chair, VSS, no c/o pain. lumbar dressing c/d/i. pt without needs or concerns at this time. 1035-pt resting in chair, VSS, no c/o pain. lumbar dressing c/d/i. reports itching but declined offer for PRN benadryl. pt without needs or concerns at this time. 1039-pt ambulated to nursing station, accompanied by nursing staff. gait steady. no c/o pain, dressing c/d/i. VSS after ambulation 1050-pt resting in chair, VSS, no c/o pain. lumbar dressing c/d/i. pt without needs or concerns at this time. 1115-IV discontinued. pt discharged.
== END 2023-03-23 11:15 | disposition home or self-care (01) ==
PROVIDERS: PCP Nurse Practitioner Family; Visit Provider Anesthesiology
DX: M51.16 Intervertebral disc disorders with radiculopathy, lumbar region (principal); M50.10 Cervical disc disorder with radiculopathy, unspecified cervical region; Z96.82 Presence of neurostimulator
CPT/HCPCS: 62323; 96365

== ENCOUNTER 2023-03-27 11:34 | Day surgery (SDC) | payer BC, SELFPAY ==
[2023-03-27] VITALS (9 sets, daily range): BP systolic 104–139; BP diastolic 61–85; PULSE 52–67; RESP 18–20; TEMP 36.4; O2SAT 96–98; BMI 34.3
--- NOTE | 2023-03-27 12:56 | EXP.PAIN.PRO ---
Procedure Date: 03/27/23 Time: 12:00 Anesthesiologist:: Trace Lerner CRNA Complications:: None Pre-procedure Diagnosis:: Degenerative disc disease cervical spine multilevels. Cervical radiculopathy. Degenerative disc disease lumbar spine lumbar radiculopathy. Post dura puncture headache. Post-procedure Diagnosis:: Same. Indications for Procedure:: Patient is a pleasant 42-year-old female comes our clinic today for follow-up after receiving intrathecal pain pump trial on 03/23/2023. Patient reports 100% improvement terms of her overall cervical and lumbar radicular symptoms. Patient continues with spinal cord stimulator for her lumbar radicular symptoms. Patient very pleased with the outcome of the intrathecal pain pump trial. However, patient complaining today of posterior puncture headache. She has significant postural headache. Nausea and vomiting. Photophobia. Patient states this started shortly after arriving home after the intrathecal pain pump trial. I discussed in detail with the patient regarding epidural blood patch. Patient reports she had epidural blood patch after epidural with her first child years ago. Patient requesting epidural blood patch today if possible. She has arranged for her to come pick her up today following epidural blood patch. Procedure Details:: Details of the procedure explained to the patient. The patient taken the procedure room placed in the prone position. The area over the lumbar spine was cleaned using chlorhexidine as a cleansing solution. The skin and subcutaneous tissue was anesthetized using a 25-gauge needle and 1% lidocaine over the L4-5 intervertebral space. Using a 18-gauge epidural Touhy needle the L4-5 epidural space was accessed with ease using [id number] technique. Needle position was confirmed using fluoroscopy and a lateral view and 1 cc of contrast dye injected. 20 cc of blood was drawn from the right antecubital in a sterile fashion. 18 mL of blood was injected in the epidural needle after negative aspiration. Needle was withdrawn. Band-Aid applied. Patient tolerated procedure without difficulty. There are no complications. Plan and Disposition:: Patient will remain supine here in recovery until her arrives. She has been instructed to lie flat for her 45-minute ride home. After which time she can lay flat at home for 2 hours. Patient voices understanding.
--- NOTE | 2023-03-27 13:43 | PC.NURSE ---
1243-pt returned to bay, accompanied by nursing staff. pt assisted to supine position in recliner. VSS. no needs or concerns at this time 1300-pt resting in supine position. VSS, states headache has eased. no needs or concerns at this time 1315-pt resting in supine position. VSS. no needs or concerns at this time 1330-pt resting in supine position. VSS, states headache has eased significantly. no needs or concerns at this time.
== END 2023-03-27 13:44 | disposition home or self-care (01) ==
PROVIDERS: PCP Nurse Practitioner Family; Visit Provider Nurse Anesthetist, Certified Registered
DX: M50.10 Cervical disc disorder with radiculopathy, unspecified cervical region (principal); M51.16 Intervertebral disc disorders with radiculopathy, lumbar region; G97.1 Other reaction to spinal and lumbar puncture
CPT/HCPCS: 62273; 99212; G0463

== ENCOUNTER → 2023-04-18 17:12 | Outpatient (CLI) | payer BC, SELFPAY ==
[2023-04-18 20:12] LABS: Basophils # 0.1 K/mm3 (0-0.2); Basophils % 0.5 % (0.1-2.0); Eosinophils # 0.2 K/mm3 (0.0-0.4); Eosinophils % 1.9 % (0.1-12.0); Hematocrit 44.4 % (37.0-47.0); Hemoglobin 14.2 g/dL (12.2-16.2); Lymphocytes # 2.7 K/mm3 (0.7-4.5); Lymphocytes % 29.3 % (10-50); Mean Corpuscular HGB Conc 31.9 g/dL (31.8-35.4); Mean Corpuscular Hemoglobin 29.5 pg (27.0-31.2); Mean Corpuscular Volume 92.2 fl (81-99); Mean Platelet Volume 8.1 fl (7.4-10.4); Monocytes # 0.7 K/mm3 (0.1-1.0); Monocytes % 7.6 % (1.7-9.3); Neutrophils # 5.5 K/mm3 (1.8-7.8); Neutrophils % 60.6 % (37.0-80.0); Platelet Count 423 K/mm3 (142-424); Red Blood Count 4.81 M/mm3 (4.20-5.40); Red Cell Distribution Width 13.5 % (11.5-17.5); White Blood Count 9.1 K/mm3 (4.8-10.8)
[2023-04-18 20:29] LABS: Anion Gap 19.9 mEq/L (5-15); Blood Urea Nitrogen 12 mg/dl (7-17); Calcium 9.1 mg/dl (8.4-10.2); Carbon Dioxide 21 mmol/L (22.0-30.0); Chloride 103 mmol/L (98-107); Estimated Glomerular Filt Rate 111 ml/min (>60); GFR (African American) 134 ML/MIN (>60); Glucose 101 mg/dl (74-100); Potassium 3.9 mmoL/L (3.5-5.1); Sodium 140 mmol/L (136-145)
[2023-04-18 20:42] LABS: HCG Qualitative, Serum Negative (Negative)
== END ==
PROVIDERS: PCP Nurse Practitioner Family; Visit Provider Anesthesiology
DX: Z01.812 Encounter for preprocedural laboratory examination (principal); M51.36 Other intervertebral disc degeneration, lumbar region
CPT/HCPCS: 36415; 80048; 84703; 85025

== ENCOUNTER 2023-04-20 06:08 | Day surgery (SDC) | payer BC, SELFPAY ==
[2023-04-17 11:20] VITALS: BMI 34.7
[2023-04-20] VITALS (11 sets, daily range): BP systolic 112–146; BP diastolic 70–80; PULSE 60–71; RESP 16–18; TEMP 36.1–43; O2SAT 93–98
--- NOTE | 2023-04-20 | XR_ITS ---
FINAL REPORT CLINICAL HISTORY: pain pump placement FINDINGS: FLUOROSCOPY IN THE OR HISTORY: pain pump placement FINDINGS: Fluoroscopy was provided by the radiology department for the clinical service. IMPRESSION: Intraoperative fluoroscopy Reviewed, Interpreted and Dictated by Elie Graves III, MD Transcribed by LIZBETH Aragon Authenticated and . [facility]
--- NOTE | 2023-04-20 07:05 | EXP.ANES.CKL ---
[facility] Disclaimer: The information contained in this section may have been updated after the patient was seen, as this information can be updated by other users. Medical History Allergies Asthma CRPS (complex regional pain syndrome) DDD (degenerative disc disease), cervical DDD (degenerative disc disease), lumbar Eczema Headache History of anemia History of COVID-19 HLD (hyperlipidemia) HTN (hypertension) Kidney stone Migraine Palpitations Urinary tract infection Surgical History History of cholecystectomy Family History Other Family history of cancer Family history of diabetes mellitus type II Family history of stroke Social History (Updated 04/20/23 @ 06:26 by Ashley Rivas RN) Smoking Status: Current every day smoker tobacco type: cigarettes packs per day: 1 pack-years: 20 alcohol intake: current substance use type: denies use current occupational status: employed Travel in the last 8 weeks: None household members: spouse and family housing: house marital status: education level: college service: No caffeine: Yes special joshua needs: No do you feel safe at home: Yes victim of physical abuse: No victim of emotional abuse: No victim of sexual abuse: No would you like helpful sources: No [facility] Anesthesia Checklist Patient Identification Patient Identification: Arm Band and Verbal (Name & ) Structural Data Planned Operative Procedure/s: intrathecal pain pump Consent for Planned Operative Procedure(s) Verified: Yes Verified Documents: Surgical Consent NPO Status Verified Time NPO: 00:00 Additional verifications Anesthesia Reactions: No Hx Blood Transfusions: No Blood Transfusion Reaction: No Airway Assessment C-Spine Mobility Assessed: Yes TMJ Mobility Assessed: Yes Dentition: Good Dentition Neurological Assessment Level of Consciousness: Awake and Alert Anesthesia Plan Anesthesia Risk discussed: Yes ASA Class: II Anesthesia Type: MAC
[2023-04-20 08:58] LABS: Benzodiazepines Screen,Urine Negative ng/ml (<200)
[2023-04-20 08:59] LABS: Amphetamine/Metha Screen,Urine Negative ng/ml (<1000); Barbiturates Screen,Urine Negative ng/ml (<200)
[2023-04-20 09:00] LABS: Cannabinoid Screen,Urine Negative ng/ml (<50); Cocaine Screen,Urine Negative ng/ml (<300)
[2023-04-20 09:01] LABS: Methadone Screen,Urine Negative ng/ml (<300)
[2023-04-20 09:02] LABS: Opiate Screen,Urine Negative ng/ml (<300); Phencyclidine Screen,Urine Negative ng/ml (<25)
--- NOTE | 2023-04-20 13:34 | P.OP_ITS ---
Date of procedure: 04/20/23 Pre-op Diagnosis:: Degenerative disc disease of lumbar spine with lumbar radiculopathy symptoms Post-op Diagnosis:: Same Procedure performed:: Permanent placement intrathecal pain pump with tunneled intrathecal catheter and pain pump generator placement Surgeon:: Aldo De La Cruz MD ACCOUNT SERVICE ASSOCIATE:: Brandi Parrish Anesthesia: MAC Estimated blood loss (mL): 5 Clinical Note:: This patient is a pleasant 42-year-old white female who we are treating for low back pain with lumbar radicular symptoms. She has failed all previous conservative treatments including injections, oral medications, physical therapy and she is not a candidate for surgery. She has had a successful psychological evaluation. She is also had a successful intrathecal pump trial. She presents for permanent placement of her intrathecal pain pump today. Operative findings:: None Operative note:: Informed consent was obtained risk and benefits of the procedure were explained to the patient. Patient was taken the operating room placed prone on the procedure table. She was prepped and draped in sterile fashion. C-arm fluoroscopy was used to view the lumbar spine. The skin and subcutaneous tissues on the left flank residential between the 12th rib and iliac crest were anesthetized using lidocaine. I made incision and dissected out the reservoir pocket. C-arm fluoroscopy was then used to view the lumbar spine. The skin and subcutaneous tissues were anesthetized using lidocaine. I made an incision and dissected down to the lumbar paraspinous fascia. A 17-gauge spinal needle was inserted and advanced into the L4-L5 interspace until clear CSF was obtained. After this intrathecal catheter was inserted and advanced very easily to the T8 vertebral body. The stylette of the catheter and the needle withdrawn. The catheter was secured to the fascia with anchoring bias and 2-0 Prolene. I tunneled the catheter from the back to the generator pocket. I attached the catheter to the generator. Prior to this I filled the pump with 20 mils of intrathecal morphine 1 mg/mL. Placed the pump in the pocket. We were able to freely withdraw clear CSF from the sideport. Both incisions were irrigated with antibiotic solution. Both incisions were then closed with 2-0 Vicryl followed by 4-0 nylon and rebeka. A wound VAC was placed over both incisions. The patient was placed in an abdominal binder taken recovery in stable condition. The pump was interrogated and started at 0.1 mg/day of intrathecal morphine. Patient was discharged home neurologic intact with good relief of pain symptoms. Plan and disposition: We will send the patient home with Bactrim DS twice a day for 5 days for postop antibiotics. We will follow-up with this patient in 1 week for wound check and then in 2 to 3 weeks for suture and staple removal. Condition: stable Disposition: PACU Complications:: None
== END 2023-04-20 11:06 | disposition home or self-care (01) ==
PROVIDERS: PCP Nurse Practitioner Family; Visit Provider Anesthesiology
PROC: (CPT 62350; principal; 2023-04-20 07:30)
DX: M51.16 Intervertebral disc disorders with radiculopathy, lumbar region (principal)
CPT/HCPCS: 62350; 62362; 80305; 96374; C1755; C1772

== ENCOUNTER → 2023-04-26 10:01 | Outpatient (POV) | payer BC, SELFPAY ==
--- NOTE | 2023-04-26 10:59 | EXP.PAIN.SOA ---
[facility] Pain Management SOAP Note Subjective:: Patient is a pleasant 42-year-old female who presents today for 1 week postop of intrathecal pain pump placement on 04/20/2023. We are currently treating the patient for degenerative disc disease of cervical and lumbar spine with cervical and lumbar radiculopathy symptoms, spinal cord stimulator generator replacement with surgical paddle leads in place. Today she rates her pain a 3 out of 10. She states that she is done well following her pump placement and denies any new injuries following. She states she has been able to increase her activity with decreased pain symptoms. She does state occasionally she will still have increased pain when she has been up on her feet for a long period of time. Patient states that she did have to take off the wound VAC on Sunday because it kept alarming and could not hold suction. Patient is currently managed with intrathecal morphine 1 mg/mL with a daily dose of 0.0999 mg/day. Patient denies any side effects from that medication. She states that it is helping her pain symptoms. At our last visit we did change her tizanidine to methocarbamol 500 mg twice a day. She states that it did initially help provide additional relief however over time it she stopped noticing improvement. At her last visit we did also send in a refill of her gabapentin 300 mg 3 times a day and she denies any side effects from this medication. Patient states she does not need any refills of this medication at this time. Her Josemanuel is [id number]. Its been reviewed and appropriate. Review of Systems: General: No recent weight changes, no fever, no sleep disturbances Respiratory: No cough, no shortness of air, no recurring pulmonary infections Cardiovascular/peripheral vascular: No chest pain, no palpitations, no edema, no shortness of breath Gastrointestinal: No new onset incontinence, normal bowel movements reported Genitourinary: No new onset incontinence Musculoskeletal: Low back pain Psychiatric: [Normal mood/affect] Neurological: [Denies weakness in extremities], [denies balance issues] Objective:: Physical Exam: General: Alert and oriented x3, no acute distress, pleasant and cooperative Lungs: Respirations even and unlabored, symmetrical chest expansion Eyes: PERRL Musculoskeletal: Flexion and extension of lumbar [spine] somewhat guarded secondary to pain, [antalgic gait noted] Neurological: Speech clear, no gross sensory deficit Assessment:: Degenerative disc disease of cervical and lumbar spine with cervical and lumbar radiculopathy symptoms, spinal cord stimulator generator replacement with surgical paddle leads in place Plan:: Patient continues to do well following her surgical procedure. Her incision sites are clean, dry, well approximated with minimal erythema noted and rebeka and sutures intact. We will set the patient up on her PTM device during today's visit. I have counseled the patient to continue her postop restrictions of minimal bending, lifting or twisting, no submerging in water until her incisions are fully healed and to continue to wear her abdominal binder to prevent seroma formation. Patient has also been counseled that at our next visit we will plan on removing the rebeka and sutures if indicated and apply skin glue and Steri-Strips. Patient will return to clinic in 2 weeks for reevaluation of symptoms and follow-up. Patient has been instructed to contact the clinic with any concerns before the next appointment. Dr. De La Cruz has reviewed this note and agrees with this plan of care. This note was dictated using voice recognition software and make contain errors or omissions. -- It Is medically necessary for this patient to continue to have their intrathecal pump refilled at regular intervals. This patient had an intrathecal pain pump implanted after meeting criteria of chronic intractable pain for greater than 3 months and failing conservative treatments. Patient has committed and
[2023-04-26 11:19] VITALS: BP 112/74; PULSE 66; RESP 18; TEMP 36.9; O2SAT 97; BMI 34.7
== END ==
PROVIDERS: PCP Nurse Practitioner Family; Visit Provider Nurse Practitioner Family
DX: M50.10 Cervical disc disorder with radiculopathy, unspecified cervical region (principal); M51.16 Intervertebral disc disorders with radiculopathy, lumbar region; Z97.8 Presence of other specified devices
CPT/HCPCS: 99212; G0463

== ENCOUNTER → 2023-05-09 13:20 | Outpatient (POV) | payer BC, SELFPAY ==
--- NOTE | 2023-05-09 13:39 | EXP.PAIN.PRO ---
Procedure Date: 05/09/23 Time: 13:39 Anesthesiologist:: Muriel Valdez APRN Complications:: None Pre-procedure Diagnosis:: Degenerative disc disease of cervical and lumbar spine with cervical and lumbar radiculopathy symptoms, status post spinal cord stimulator generator replacement with surgical paddle leads in place Post-procedure Diagnosis:: Same Indications for Procedure:: Patient is a pleasant 42-year-old female who presents today for intrathecal pain pump adjustment and reprogram. The patient is being treated for degenerative disc disease of cervical and lumbar spine with cervical and lumbar radiculopathy symptoms status post spinal cord stimulator generator replacement with surgical paddle leads in place. Patient is currently being managed with morphine 1 mg/mL with a daily dose of 0.0999 mg/day. Patient denies any side effects from this medication. Patient rates pain a 5 out of 10. Drug screen is appropriate. Josemanuel [phone] has been reviewed and is appropriate. Physical exam General: Alert and oriented x3, no acute distress, pleasant and cooperative Lungs: Respirations even and unlabored, symmetrical chest expansion Eyes: PERRL Musculoskeletal: Flexion and extension of lumbar [spine] somewhat guarded secondary to pain, [antalgic gait noted] Neurological: Speech clear, no gross sensory deficit Skin: Incision sites clean, dry, well approximated with minimal erythema noted, sutures and rebeka intact Procedure Details:: Informed consent was obtained and the risk and benefits of the procedure were explained to the patient. Patient was taken to the procedure room where noninvasive monitoring was placed including noninvasive blood pressure cuff and pulse oximeter. Patient's pump was interrogated and was reprogrammed to morphine 0.1099 mg/day. The patient tolerated the procedure well with no complications. Plan and Disposition:: Patient is doing well following her intrathecal pain pump placement. Her rebeka were removed during today's visit however sutures remain intact. Patient will return to clinic next week for reevaluation of symptoms with possible suture removal and skin glue and Steri-Strips to be applied if indicated. Patient tolerated her intrathecal increase with no complications and was discharged neurologically intact. Patient will return to clinic in 1 week for reevaluation of symptoms and plan of care. Patient has been instructed to contact the clinic with any concerns before the next appointment. Dr. De La Cruz has reviewed this note and agrees with this plan of care. This note was dictated using voice recognition software and make contain errors or omissions. -- It Is medically necessary for this patient to continue to have their intrathecal pump refilled at regular intervals. This patient had an intrathecal pain pump implanted after meeting criteria of chronic intractable pain for greater than 3 months and failing conservative treatments. Patient has committed and been compliant to the treatment plan and all planned follow up care. Since implantation of the intrathecal pain pump, the patient has had decreased pain and been more functional. Oral medications have been reduced including intake of oral opioids. Patient continues to do well with intrathecal therapy with decrease in pain symptoms and increase in functional status. Stopping intrathecal medications can lead to life threatening withdrawal, seizures, cardiac arrest, severe pain, and possible . Pumps that are not refilled at regular intervals can be damages and cause and need for replacement. We continually titrate dose and concentration to optimize pain relief and function. We are limited in concentration for certain drugs to safely deliver medications through the pump and stay within the recommendations from the Polyanalgesic Consensus Committee Guidelines. Depending on dose and concentration these pumps may need to be refilled sooner than 3 months as we titrate.
[2023-05-09 14:15] VITALS: BP 119/69; PULSE 60; RESP 18; O2SAT 97; BMI 33.1
== END | disposition home or self-care (01) ==
PROVIDERS: PCP Nurse Practitioner Family; Visit Provider Nurse Practitioner Family
DX: M50.10 Cervical disc disorder with radiculopathy, unspecified cervical region (principal); M51.16 Intervertebral disc disorders with radiculopathy, lumbar region; Z96.82 Presence of neurostimulator
CPT/HCPCS: 62368; 99213; G0463

== ENCOUNTER → 2023-05-16 09:18 | Outpatient (POV) | payer BC, SELFPAY ==
--- NOTE | 2023-05-16 09:41 | EXP.PAIN.SOA ---
[facility] Pain Management SOAP Note Subjective:: Patient is a pleasant 42-year-old female who presents today for follow-up. We are currently treating the patient for degenerative disc disease of cervical and lumbar spine with cervical and lumbar radiculopathy symptoms, spinal cord stimulator generator replacement with surgical paddle leads in place. Patient did have a intrathecal pain pump placed back at April 20, 2023 and she states she continues to do well with this. At our last visit we did increase her dosage and she states this has provided additional relief. She rates her pain today a 2 out of 10. She denies any new trauma or injury. She denies any change location or type of pain she experiences. Patient states she has been able to increase her activity with decreased pain symptoms. At our last visit we did also remove some of the rebeka however left some additional sutures. Patient is currently managed with methocarbamol 500 mg twice a day and gabapentin 300 mg 3 times a day. Patient denies any side effects from this medication. She does state that she feels like the muscle relaxer is not working as well. Patient states that she is almost out of this medication however she does not need any refills on her gabapentin. Her Josemanuel is [phone]. Its been reviewed and appropriate. Review of Systems: General: No recent weight changes, no fever, no sleep disturbances Respiratory: No cough, no shortness of air, no recurring pulmonary infections Cardiovascular/peripheral vascular: No chest pain, no palpitations, no edema, no shortness of breath Gastrointestinal: No new onset incontinence, normal bowel movements reported Genitourinary: No new onset incontinence Musculoskeletal: Low back pain Psychiatric: [Normal mood/affect] Neurological: [Denies weakness in extremities], [denies balance issues] Objective:: Physical Exam: General: Alert and oriented x3, no acute distress, pleasant and cooperative Lungs: Respirations even and unlabored, symmetrical chest expansion Eyes: PERRL Musculoskeletal: Flexion and extension of lumbar [spine] somewhat guarded secondary to pain, [antalgic gait noted] Neurological: Speech clear, no gross sensory deficit Assessment:: Degenerative disc disease of cervical and lumbar spine with cervical and lumbar radiculopathy symptoms, spinal cord stimulator generator replacement with surgical paddle leads in place Plan:: Patient continues to do well following her placement of her intrathecal pain pump. Her incision sites are clean, dry, well approximated with no erythema noted. Patient did have the remainder of her sutures removed and Steri-Strips applied to her lateral left incision. I have counseled the patient to continue her postop restrictions. I will refill the patient's methocarbamol and increase it to 750 mg twice daily and provide a 1 month supply of this medication. Patient will return to clinic in 1 month for reevaluation of symptoms and plan of care. Patient has been instructed to contact the clinic with any concerns before the next appointment. Dr. De La Cruz has reviewed this note and agrees with this plan of care. This note was dictated using voice recognition software and make contain errors or omissions. [facility] Disclaimer: The information contained in this section may have been updated after the patient was seen, as this information can be updated by other users. Medical History Allergies Asthma CRPS (complex regional pain syndrome) DDD (degenerative disc disease), cervical DDD (degenerative disc disease), lumbar Eczema Headache History of anemia History of COVID-19 HLD (hyperlipidemia) HTN (hypertension) Kidney stone Migraine Palpitations Urinary tract infection Surgical History History of cholecystectomy Family History Other Family history of can
[2023-05-16 09:59] VITALS: BP 115/77; PULSE 66; RESP 18; O2SAT 98; BMI 34.9
== END | disposition home or self-care (01) ==
PROVIDERS: PCP Nurse Practitioner Family; Visit Provider Nurse Practitioner Family
DX: M50.10 Cervical disc disorder with radiculopathy, unspecified cervical region (principal); M51.16 Intervertebral disc disorders with radiculopathy, lumbar region; Z96.82 Presence of neurostimulator
CPT/HCPCS: 99212; 99213; G0463

== ENCOUNTER → 2023-06-14 09:19 | Outpatient (POV) | payer BC, SELFPAY ==
--- NOTE | 2023-06-14 09:27 | EXP.PAIN.SOA ---
[facility] Pain Management SOAP Note Subjective:: Patient is a pleasant 42-year-old female who presents today for follow-up. We are currently treating the patient for degenerative disc disease of cervical and lumbar spine with cervical and lumbar radiculopathy symptoms, spinal cord stimulator generator replacement with surgical paddle leads in place. Today she rates her pain a 3 out of 10. Patient denies any new trauma or injury. She denies any change location or type of pain she experiences. She is currently managed with morphine 1 mg/mL with a daily dose of 0.1099 mg/day. Patient denies any side effects from this medication. She states that she feels like this is working well for her at the current dosage. P she is currently managed with methocarbamol 750 mg twice a day and gabapentin 300 mg 3 times a day. Patient denies any side effects from this medication. She states she does not need any refills at this time. Her Josemanuel is [phone]. Its been reviewed and appropriate. Review of Systems: General: No recent weight changes, no fever, no sleep disturbances Respiratory: No cough, no shortness of air, no recurring pulmonary infections Cardiovascular/peripheral vascular: No chest pain, no palpitations, no edema, no shortness of breath Gastrointestinal: No new onset incontinence, normal bowel movements reported Genitourinary: No new onset incontinence Musculoskeletal: Low back pain Psychiatric: [Normal mood/affect] Neurological: [Denies weakness in extremities], [denies balance issues] Objective:: Physical Exam: General: Alert and oriented x3, no acute distress, pleasant and cooperative Lungs: Respirations even and unlabored, symmetrical chest expansion Eyes: PERRL Musculoskeletal: Flexion and extension of lumbar [spine] somewhat guarded secondary to pain, [antalgic gait noted] Neurological: Speech clear, no gross sensory deficit Assessment:: Degenerative disc disease of cervical and lumbar spine with cervical and lumbar radiculopathy symptoms, spinal cord stimulator generator replacement with surgical paddle leads in place Plan:: Patient is doing well with her current regimen and does not require any additional adjustments or prescription refills at this time. Patient will return to clinic in 1 month for reevaluation of symptoms and plan of care. Patient has been instructed to contact the clinic with any concerns before the next appointment. Dr. De La Cruz has reviewed this note and agrees with this plan of care. This note was dictated using voice recognition software and make contain errors or omissions. -- It Is medically necessary for this patient to continue to have their intrathecal pump refilled at regular intervals. This patient had an intrathecal pain pump implanted after meeting criteria of chronic intractable pain for greater than 3 months and failing conservative treatments. Patient has committed and been compliant to the treatment plan and all planned follow up care. Since implantation of the intrathecal pain pump, the patient has had decreased pain and been more functional. Oral medications have been reduced including intake of oral opioids. Patient continues to do well with intrathecal therapy with decrease in pain symptoms and increase in functional status. Stopping intrathecal medications can lead to life threatening withdrawal, seizures, cardiac arrest, severe pain, and possible . Pumps that are not refilled at regular intervals can be damages and cause and need for replacement. We continually titrate dose and concentration to optimize pain relief and function. We are limited in concentration for certain drugs to safely deliver medications through the pump and stay within the recommendations from the Polyanalgesic Consensus Committee Guidelines. Depending on dose and concentration these pumps may need to be refilled sooner than 3 months as we titrate. [facility] Disclaimer: The information contained in this section may have been updated a
[2023-06-14 11:43] VITALS: BP 122/79; PULSE 66; RESP 18; O2SAT 97; BMI 34.9
== END ==
PROVIDERS: Visit Provider Nurse Practitioner Family
DX: M50.10 Cervical disc disorder with radiculopathy, unspecified cervical region (principal); M51.16 Intervertebral disc disorders with radiculopathy, lumbar region; Z96.82 Presence of neurostimulator
CPT/HCPCS: 99212; G0463

== ENCOUNTER → 2023-07-23 09:02 | Outpatient (POV) | payer BC, SELFPAY ==
--- NOTE | 2023-07-23 09:31 | EXP.PAIN.PRO ---
Procedure Date: 07/23/23 Time: 09:31 Anesthesiologist:: Muriel Valdez APRN Complications:: None Pre-procedure Diagnosis:: Degenerative disc disease of cervical and lumbar spine with cervical and lumbar radiculopathy symptoms, spinal cord stimulator generator replacement with surgical paddle leads in place Post-procedure Diagnosis:: Same Indications for Procedure:: Patient is a pleasant 42-year-old female who presents today for intrathecal adjustment and reprogram and medication refill. We are currently treating the patient for degenerative disc disease of cervical and lumbar spine with cervical and lumbar radiculopathy symptoms, spinal cord stimulator generator replacement with surgical paddle leads in place. Today she rates her pain a 6 out of 10. She denies any new trauma or injury. She states that her intrathecal pain pump is continuing to provide improvement of her pain symptoms however she has been starting to have a little bit more pain as she increases her activity. Patient is currently managed with morphine 1 mg/mL with a daily dose of 0.1099 mg/day. She denies any side effects from this medication. She is also managed with methocarbamol 750 mg twice a day and gabapentin 300 mg 3 times a day. Patient does state that she is no longer taking the gabapentin and that she really has not noticed additional improvement with the methocarbamol. Patient was previously tried on tizanidine which did help however she did get accustomed to this medication to where it no longer had overall effectiveness. Her Josemanuel is [phone]. Its been reviewed and appropriate. Physical Exam: General: Alert and oriented x3, no acute distress, pleasant and cooperative Lungs: Respirations even and unlabored, symmetrical chest expansion Eyes: PERRL Musculoskeletal: Flexion and extension of lumbar [spine] somewhat guarded secondary to pain, [antalgic gait noted] Neurological: Speech clear, no gross sensory deficit Procedure Details:: Informed consent was obtained and the risk and benefits of the procedure were explained to the patient. Patient was taken to the procedure room where noninvasive monitoring was placed including noninvasive blood pressure cuff and pulse oximeter. Patient's pump was interrogated and was reprogrammed to morphine 0.1209 mg/day. The patient tolerated the procedure well with no complications. Plan and Disposition:: Patient tolerated her intrathecal increase with no complications and was discharged neurologically intact. I will send in a new prescription of baclofen 5 mg twice daily and provide a 14-day supply of this medication. I have counseled the patient to contact our office if she would like additional refills on this medication. Patient will follow-up in clinic in 1 month for reevaluation of symptoms and possible intrathecal adjustment and reprogram. Patient has been instructed to contact the clinic with any concerns before the next appointment. Dr. De La Cruz has reviewed this note and agrees with this plan of care. This note was dictated using voice recognition software and make contain errors or omissions. -- It Is medically necessary for this patient to continue to have their intrathecal pump refilled at regular intervals. This patient had an intrathecal pain pump implanted after meeting criteria of chronic intractable pain for greater than 3 months and failing conservative treatments. Patient has committed and been compliant to the treatment plan and all planned follow up care. Since implantation of the intrathecal pain pump, the patient has had decreased pain and been more functional. Oral medications have been reduced including intake of oral opioids. Patient continues to do well with intrathecal therapy with decrease in pain symptoms and increase in functional status. Stopping intrathecal medications can lead to life threatening withdrawal, seizures, cardiac arrest, severe pain, and possible . Pumps that are not refilled at regul
[2023-07-23 10:01] VITALS: BP 146/83; PULSE 62; RESP 18; O2SAT 98; BMI 35.4
== END | disposition home or self-care (01) ==
PROVIDERS: PCP Nurse Practitioner Family; Visit Provider Nurse Practitioner Family
DX: M50.10 Cervical disc disorder with radiculopathy, unspecified cervical region (principal); M51.16 Intervertebral disc disorders with radiculopathy, lumbar region; Z96.82 Presence of neurostimulator
CPT/HCPCS: 62368; 99213; G0463

== ENCOUNTER 2023-08-21 09:52 | Day surgery (SDC) | payer BC, SELFPAY ==
--- OUTSIDE RECORDS SUMMARY | 2023-08-21 09:54 | XMS_ITS | Patient Health Record ---
Author Name Unknown Organization [facility] PR[facility] Address [address] [place] [address] Care Team Providers Care Special Machine Operator Name Role Phone Jane Valderrama Unavailable [phone] ThorpeJarrett August Unavailable [phone] Kiara Jiang Unavailable [phone] Stefanie Doll Unavailable [phone] Reanna Joyner Unavailable [phone] Samantha Helm Unavailable [phone] Ultrasound 2 [facility] Unavailable [phone] Ultrasound 1 [facility] Unavailable [phone] PROBLEMS Type Condition ICD9-CM Code AVH50-FM Code Onset Dates Condition Status W/U Status Risk SNOMED Code Notes Problem Advised about oral contraception Z30.09 29 Nov, 2013 Active [id number] CONTRACE PTIVE MANAGEME NT Problem Adult general medical exam Z00.00 08 Oct, 2010 Active [id number] ANNUAL EXAM Problem Admission for routine ultrasound Z36.89 13 Sep, 2018 Active Encounte r for other specifie d 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
[2023-08-21 09:57] VITALS: BP 117/91; PULSE 73; RESP 16; TEMP 36.7; O2SAT 96; BMI 36.3
[2023-08-21 10:10] VITALS: BP 144/99; PULSE 76; RESP 20; O2SAT 96
--- NOTE | 2023-08-21 10:15 | EXP.PAIN.PRO ---
Procedure Date: 08/21/23 Time: 10:12 Anesthesiologist:: Trace Lerner CRNA Complications:: None Pre-procedure Diagnosis:: Degenerative disc lumbar spine multilevels. Lumbar radiculopathy. Post-procedure Diagnosis:: Same. Indications for Procedure:: Patient is a very pleasant 42-year-old female that comes our clinic today for intrathecal pain pump interrogation and refill. Patient is currently being managed with morphine sulfate 1 mg/mL at 0.1209 mg/day. Patient rates her pain 6/10. She is complaining of some low back pain that has been increasing with activity recently. She is requesting an increase today. I think this is reasonable. We will increase the pump at 20%. Procedure Details:: Details of the procedure explained to the patient. The patient was taken the procedure room placed in the sitting position. The area over the pump was cleaned using chlorhexidine as a cleansing solution. The pump was interrogated. The pump was accessed with ease using a 22-gauge inch and half needle. 4.5 mL of solution was withdrawn and discarded appropriately. The pump was then filled incrementally with a 20 cc solution containing morphine sulfate 1 mg/mL. Patient's pump was increased by 20% today. The new pump rate is 0.66884 mg/day. Patient's PTM will also match the increase as well. Plan and Disposition:: Patient was discharged without incident.
[2023-08-21 10:20] VITALS: BP 115/79; PULSE 68; RESP 18; O2SAT 98
[2023-08-21 11:11] LABS: Barbiturates Screen,Urine Negative ng/ml (<200)
[2023-08-21 11:12] LABS: Benzodiazepines Screen,Urine Negative ng/ml (<200)
[2023-08-21 11:13] LABS: Amphetamine/Metha Screen,Urine Negative ng/ml (<1000); Cocaine Screen,Urine Negative ng/ml (<300)
[2023-08-21 11:14] LABS: Cannabinoid Screen,Urine Negative ng/ml (<50); Methadone Screen,Urine Negative ng/ml (<300)
[2023-08-21 11:15] LABS: Opiate Screen,Urine Negative ng/ml (<300)
[2023-08-21 11:16] LABS: Phencyclidine Screen,Urine Negative ng/ml (<25)
[2023-08-26 13:21] LABS: Opiates Negative (Cutoff=100)
== END 2023-08-21 10:20 | disposition home or self-care (01) ==
LOC: SC.PAINP 10:26 → LAB 10:27
PROVIDERS: Anesthesiology; PCP Nurse Practitioner Family; Visit Provider Nurse Anesthetist, Certified Registered
DX: M51.16 Intervertebral disc disorders with radiculopathy, lumbar region (principal); Z97.8 Presence of other specified devices
CPT/HCPCS: 80305; 80361; 80365; 95991; G0480

== ENCOUNTER 2023-10-30 09:43 | Day surgery (SDC) | payer BC, SELFPAY ==
[2023-10-30 09:57] VITALS: BP 133/76; PULSE 72; RESP 18; TEMP 36.3; O2SAT 96; BMI 36.3
[2023-10-30 10:01] VITALS: BP 141/95; PULSE 72; RESP 18; O2SAT 95
[2023-10-30 10:03] VITALS: BP 141/95; PULSE 66; RESP 18; O2SAT 96
[2023-10-30 10:09] VITALS: BP 134/84; PULSE 66; RESP 18; O2SAT 96
--- NOTE | 2023-10-30 10:10 | P.PCN_ITS ---
Procedure Date: 10/30/23 Time: 09:55 Anesthesiologist:: Trace Lerner CRNA Complications:: None Pre-procedure Diagnosis:: Degenerative disc lumbar spine multilevels. Lumbar radiculopathy. Lumbar postlaminectomy syndrome. Post-procedure Diagnosis:: Same. Indications for Procedure:: Patient is a pleasant 43-year-old female comes to clinic today for intrathecal pain pump interrogation refill. She is currently being managed with morphine sulfate 1 mg/mL at a rate of 0.1450 mg/day. Patient doing very well with her intrathecal pain pump management. She is requesting a small increase in the rate. Patient reporting some low lumbar back pain with activity. Procedure Details:: Details of the procedure explained to the patient. Patient taken the procedure room placed in sitting position. The area of the pump is cleansed using chlorhe xidine's cleansing solution. The pump was interrogated. The pump was accessed with ease using a 22-gauge inch and half needle. 9.1 mL of solution was withdrawn and discarded appropriately. The pump was then filled with 20 cc of a solution containing morphine sulfate 1 mg/mL. The rate will be increased to 0.1597 mg/day. Patient tolerated procedure without difficulty. There are no complications. Plan and Disposition:: Patient was discharged without incident.
== END 2023-10-30 10:15 | disposition home or self-care (01) ==
PROVIDERS: PCP Nurse Practitioner Family; Visit Provider Nurse Anesthetist, Certified Registered
DX: M51.16 Intervertebral disc disorders with radiculopathy, lumbar region (principal); M96.1 Postlaminectomy syndrome, not elsewhere classified; Z97.8 Presence of other specified devices; Z45.1 Encounter for adjustment and management of infusion pump
CPT/HCPCS: 95991

== ENCOUNTER 2024-01-01 09:36 | Day surgery (SDC) | payer BC, SELFPAY ==
[2024-01-01 09:51] VITALS: BP 131/82; PULSE 63; RESP 18; TEMP 37; O2SAT 97; BMI 35.6
[2024-01-01 10:04] VITALS: BP 165/90; PULSE 66; RESP 18; O2SAT 96
[2024-01-01 10:05] VITALS: BP 165/90; PULSE 65; RESP 18; O2SAT 96
--- NOTE | 2024-01-01 10:13 | EXP.PAIN.PRO ---
Procedure Date: 01/01/24 Time: 09:45 Anesthesiologist:: Trace Lerner CRNA Complications:: None Pre-procedure Diagnosis:: Degenerative disc lumbar spine multilevels. Lumbar radiculopathy. Post-procedure Diagnosis:: Same. Indications for Procedure:: Patient is a very pleasant 43-year-old female comes our clinic today for intrathecal pain pump irrigation refill. Patient currently being managed with morphine sulfate 1 mg/mL at a rate of 0.1597 mg/day. Patient doing very well with her intrathecal pain pump management. However, patient is requesting increase in her intrathecal pain pump rate today due to increase in low back pain over the last month. She states the pain in the low back typically is associated with increase in activity. She rates her pain today 4/10. Procedure Details:: Details of the procedure explained the patient. The patient taken procedure and placed into position. The area of the pump is cleansed using chlorhexidine's cleansing solution. The pump was interrogated. The pump was accessed with ease using a 22-gauge inch and half needle. 8.5 mL of solution was withdrawn discarded appropriate. The pump was then filled with 20 cc of solution containing morphine sulfate 1 mg/mL. The rate will be increased today by 20%. The new rate will be 0.1917 mg today. Patient tolerated procedure without difficulty. There are no complications. Plan and Disposition:: Patient was discharged without incident.
[2024-01-01 10:15] VITALS: BP 145/94; PULSE 62; RESP 18; O2SAT 97
[2024-01-01 11:38] LABS: Opiate Screen,Urine Negative ng/ml (<300); Phencyclidine Screen,Urine Negative ng/ml (<25)
[2024-01-01 11:40] LABS: Amphetamine/Metha Screen,Urine Negative ng/ml (<1000); Barbiturates Screen,Urine Negative ng/ml (<200)
[2024-01-01 11:42] LABS: Cannabinoid Screen,Urine Negative ng/ml (<50)
[2024-01-01 11:43] LABS: Cocaine Screen,Urine Negative ng/ml (<300)
[2024-01-01 11:44] LABS: Methadone Screen,Urine Negative ng/ml (<300)
[2024-01-01 11:49] LABS: Benzodiazepines Screen,Urine Negative ng/ml (<200)
[2024-01-07 00:07] LABS: Opiates Negative (Cutoff=100)
== END 2024-01-01 10:15 | disposition home or self-care (01) ==
PROVIDERS: Anesthesiology; PCP Nurse Practitioner Family; Visit Provider Nurse Anesthetist, Certified Registered
DX: M51.16 Intervertebral disc disorders with radiculopathy, lumbar region (principal)
CPT/HCPCS: 80307; 80361; 80365; 95991; G0480

== ENCOUNTER 2024-02-26 09:33 | Day surgery (SDC) | payer BC, SELFPAY ==
[2024-02-26 09:54] VITALS: BP 127/82; PULSE 68; RESP 18; TEMP 36.7; O2SAT 97; BMI 35.0
[2024-02-26 10:09] VITALS: O2SAT 96
--- NOTE | 2024-02-26 10:14 | EXP.PAIN.PRO ---
Procedure Date: 02/26/24 Time: 10:00 Anesthesiologist:: Trace Lerner CRNA Complications:: None Pre-procedure Diagnosis:: Degenerative disc lumbar spine multilevels. Lumbar radiculopathy. Post-procedure Diagnosis:: Same. Indications for Procedure:: Patient is a very pleasant 43-year-old female comes our clinic today for intrathecal pain pump interrogation and refill. She is currently being managed with morphine sulfate 1 mg/mL at a rate of 0.1917 mg/day. She is doing very well with her current settings. Patient not requesting any changes. Patient does not report any side effects or complications regarding intrathecal pain pump management. Procedure Details:: Details of the procedure explained to the patient. The patient taken procedure room placed in the sitting position. The area over the pump was cleansed using chlorhexidine as a cleansing solution. The pump was interrogated. The pump was accessed with ease using a 22-gauge inch and a half needle. 8.4 mL of solution was withdrawn and discarded appropriately. The pump was then filled with 20 cc of solution containing morphine sulfate 1 mg/mL. Patient tolerated procedure without difficulty. There are no complications. Plan and Disposition:: Patient was discharged without incident.
[2024-02-26 10:15] VITALS: BP 137/93; PULSE 64; RESP 18; O2SAT 96
[2024-02-26 10:28] VITALS: BP 125/79; PULSE 61; RESP 16; O2SAT 95
== END 2024-02-26 10:28 | disposition home or self-care (01) ==
PROVIDERS: PCP Nurse Practitioner Family; Visit Provider Nurse Anesthetist, Certified Registered
DX: M51.16 Intervertebral disc disorders with radiculopathy, lumbar region (principal); Z97.8 Presence of other specified devices; Z45.1 Encounter for adjustment and management of infusion pump
CPT/HCPCS: 95991

== ENCOUNTER 2024-04-22 11:29 | Day surgery (SDC) | payer BC, SELFPAY ==
[2024-04-22 11:40] VITALS: BP 155/80; PULSE 59; RESP 18; TEMP 36.2; O2SAT 96; BMI 34.9
[2024-04-22 11:52] VITALS: BP 152/88; PULSE 61; RESP 18; O2SAT 95
[2024-04-22 11:59] VITALS: BP 152/88; PULSE 57; RESP 18; O2SAT 97
--- NOTE | 2024-04-22 12:05 | EXP.PAIN.PRO ---
Procedure Date: 04/22/24 Time: 11:35 Anesthesiologist:: Trace Lerner CRNA Complications:: None Pre-procedure Diagnosis:: Degenerative disc lumbar spine multilevels. Lumbar radiculopathy. Post-procedure Diagnosis:: Same. Indications for Procedure:: Patient is a very pleasant 43-year-old female comes our clinic today for intrathecal pain pump interrogation refill. She is currently being managed with morphine sulfate 1 mg/mL at a rate of 0.1917 mg/day. She is doing very well with her current settings. She is not reporting side effects or complications. She is not requesting changes today. Procedure Details:: The details of the procedure explained to the patient. The patient taken procedure and placed in sitting position. The area over the pump was cleaned using chlorhexidine's cleansing solution. The pump was interrogated. The pump was accessed with ease using a 22-gauge inch and half needle. 8 mL of solution was withdrawn discarded appropriate. The pump was then filled with 20 cc of solution containing morphine sulfate 1 mg/mL. The rate will remain the same. 0.1917 mg/day. Patient tolerated procedure without difficulty. There are no complications. Plan and Disposition:: Patient was discharged without incident.
[2024-04-22 12:19] VITALS: BP 167/99; PULSE 69; RESP 18; O2SAT 97
[2024-04-22 12:53] LABS: Barbiturates Screen,Urine Negative ng/ml (<200)
[2024-04-22 12:54] LABS: Amphetamine/Metha Screen,Urine Negative ng/ml (<1000); Benzodiazepines Screen,Urine Negative ng/ml (<200)
[2024-04-22 12:55] LABS: Methadone Screen,Urine Negative ng/ml (<300)
[2024-04-22 12:56] LABS: Cannabinoid Screen,Urine Negative ng/ml (<50); Cocaine Screen,Urine Negative ng/ml (<300)
[2024-04-22 12:57] LABS: Opiate Screen,Urine Negative ng/ml (<300); Phencyclidine Screen,Urine Negative ng/ml (<25)
[2024-04-26 12:25] LABS: Opiates Negative (Cutoff=100)
== END 2024-04-22 12:21 | disposition home or self-care (01) ==
PROVIDERS: Anesthesiology; PCP Nurse Practitioner Family; Visit Provider Nurse Anesthetist, Certified Registered
DX: M51.16 Intervertebral disc disorders with radiculopathy, lumbar region (principal); Z97.8 Presence of other specified devices; Z45.1 Encounter for adjustment and management of infusion pump
CPT/HCPCS: 80307; 80361; 80365; 95991; G0480

== ENCOUNTER 2024-06-12 10:38 | Outpatient (POV) | payer BC, SELFPAY ==
--- NOTE | 2024-06-12 11:01 | P.PCN_ITS ---
Procedure Date: 06/12/24 Time: 11:01 Anesthesiologist:: Muriel Valdez APRN Complications:: None Pre-procedure Diagnosis:: Degenerative disc disease of lumbar spine with lumbar radiculopathy symptoms, bilateral sacroiliitis Post-procedure Diagnosis:: Same Indications for Procedure:: Patient is a pleasant 43-year-old female who presents today for intrathecal adjustment and reprogram and medication refill. We are currently treating the patient for degenerative disc disease of cervical and lumbar spine with cervical and lumbar radiculopathy symptoms, spinal cord stimulator generator replacement with surgical paddle leads in place. Today she rates her pain a 8 out of 10. She denies any new trauma or injury. She does state that she is experiencing more pain in and around her low back and hips and describes it as an aching, throbbing sensation with some numbness into her buttocks area. Patient does state the pain interferes with her ability perform activities of daily living such as cooking and cleaning. She states that her intrathecal pain pump is continuing to provide improvement for some of her pain symptoms. She does think that she could use a little bit of adjustment today. Patient is currently managed with morphine 1 mg/mL with a daily dose of 0.1917 mg/day. She denies any side effects from this medication. She is also managed with baclofen 5 mg twice daily and is requesting refills. Her [place] has been reviewed and appropriate. Physical Exam: General: Alert and oriented x3, no acute distress, pleasant and cooperative Lungs: Respirations even and unlabored, symmetrical chest expansion Eyes: PERRL Musculoskeletal: Flexion and extension of lumbar [spine] somewhat guarded secondary to pain, [antalgic gait noted] point tenderness along bilateral SIs with positive bilateral Calli's, Nella's, Gaenslen's, compression and distraction exam Neurological: Speech clear, no gross sensory deficit Procedure Details:: Informed consent was obtained and the risk and benefits of the procedure were explained to the patient. Patient was taken to the procedure room where noninvasive monitoring was placed including noninvasive blood pressure cuff and pulse oximeter. Patient's pump was interrogated and was reprogrammed to morphine 0.2203 mg/day. The patient tolerated the procedure well with no complications. Plan and Disposition:: Patient tolerated her intrathecal increase with no complications and was discharged neurologically intact. Patient did have point tenderness along her bilateral SIs with positive bilateral Calli's, Nella's, Gaenslen's, compression and distraction exam. I did discuss with patient that she may benefit from bilateral SI injections. Risk and benefits were discussed with patient and she would like to proceed forward with this plan of care. Patient has had the symptoms going on for longer than 3 months and she is continue to do conservative treatment including oral medications, heat and ice, topicals, at home stretching exercise for longer than 12 weeks. I will also order the patient a compounded cream and refill her baclofen. Patient will be scheduled for bilateral SI injections under fluoroscopy. Patient has been instructed to contact the clinic with any concerns before the next appointment. Dr. De La Cruz has reviewed this note and agrees with this plan of care. This note was dictated using voice recognition software and make contain errors or omissions. -- It Is medically necessary for this patient to continue to have their intrathecal pump refilled at regular intervals. This patient had an intrathecal pain pump implanted after meeting criteria of chronic intractable pain for greater than 3 months and failing conservative treatments. Patient has committed and been compliant to the treatment plan and all planned follow up care. Since implantation of the intrathecal pain pump, the patient has had decreased pain and been more functional. Oral medications have been reduced including intake of oral opioids. Patient continues to do well with intrathecal therapy with decrease in pain symptoms and increase in functional status. Stopping intrathecal medications can lead to life threatening withdrawal, seizures, cardiac arrest, severe pain, and possible . Pumps that are not refilled at regular intervals can be damages and cause and need for replacement. We continually titrate dose and concentration to optimize pain relief and function. We are limited in concentration for certain drugs to safely deliver medications through the pump and stay within the recommendations from the [employer] Guidelines. Depending on dose and concentration these pumps may need to be refilled sooner than 3 months as we titrate.
[2024-06-12 11:04] VITALS: BP 142/95; PULSE 68; RESP 16; O2SAT 97; BMI 35.0
== END 2024-06-12 23:59 | disposition home or self-care (01) ==
PROVIDERS: PCP Nurse Practitioner Family; Visit Provider Nurse Practitioner Family
DX: M51.16 Intervertebral disc disorders with radiculopathy, lumbar region (principal); M46.1 Sacroiliitis, not elsewhere classified; F17.210 Nicotine dependence, cigarettes, uncomplicated; Z73.89 Other problems related to life management difficulty
CPT/HCPCS: 62368; 99213; G0463

== ENCOUNTER 2024-06-24 09:23 | Day surgery (SDC) | payer BC, SELFPAY ==
[2024-06-24 10:03] VITALS: BP 121/80; PULSE 75; RESP 16; TEMP 36.8; O2SAT 96; BMI 35.0
[2024-06-24 10:17] VITALS: BP 126/86; PULSE 73; RESP 18; O2SAT 97
[2024-06-24 10:22] VITALS: BP 126/88; PULSE 67; RESP 18; O2SAT 95
--- NOTE | 2024-06-24 10:25 | EXP.PAIN.PRO ---
Procedure Date: 06/24/24 Time: 10:40 Anesthesiologist:: Trace Lerner CRNA Complications:: None Pre-procedure Diagnosis:: Degenerative disc lumbar spine multilevels. Lumbar radiculopathy. Bilateral sacroiliitis. Post-procedure Diagnosis:: Same. Indications for Procedure:: Patient is a very pleasant 43-year-old female comes to clinic today for intrathecal pain pump interrogation and refill. She is currently being managed with morphine sulfate 1 mg/mL at a rate of 0.2 to 03 mg/day. Patient doing very well with her current settings. She is not requesting changes. She does not reporting side effects or complications. She continues to report pain over the bilateral sacroiliac joints. She describes difficulty sitting, ambulation, transitioning from sitting to standing. She has had bilateral sacroiliac joint injections in the past with significant improvement. She rates her pain 6/10. We discussed injecting the bilateral sacroiliac joints with cortisone. She has positive Gaenslen's test. Positive bilateral sacroiliac joint compression test. Bilateral positive Calli's test. Procedure Details:: Details of the procedure explained to the patient. The patient taken procedure and placed in sitting position. The air over the pumps cleansed using chlorhexidine as a cleansing solution. The pump was interrogated. The pump was accessed with ease using a 22-gauge inch and half needle. 6 mL of solution was withdrawn and discarded appropriate. The pump was then filled with 20 cc of solution containing morphine sulfate 1 mg/mL. Pump rate will remain at 0.2 to 03 mg/day. Patient tolerated procedure without difficulty. There are no complications. Plan and Disposition:: Patient was discharged without incident.
[2024-06-24 10:29] VITALS: BP 124/56; PULSE 63; RESP 16; O2SAT 100
== END 2024-06-24 10:29 | disposition home or self-care (01) ==
PROVIDERS: PCP Nurse Practitioner Family; Visit Provider Nurse Anesthetist, Certified Registered
DX: M46.1 Sacroiliitis, not elsewhere classified
CPT/HCPCS: 95991

== ENCOUNTER 2024-08-05 12:37 | Day surgery (SDC) | payer BC, SELFPAY ==
[2024-08-05 13:13] VITALS: BP 103/72; PULSE 70; RESP 16; TEMP 36.9; O2SAT 97; BMI 35.0
[2024-08-05 13:36] VITALS: BP 128/80; PULSE 68; RESP 18; O2SAT 97
[2024-08-05 13:43] VITALS: BP 128/80; PULSE 68; RESP 18; O2SAT 97
[2024-08-05] MEDS: methylPREDNISolone ACETATE 80MG/ML VIAL 80 MG (13:45)
[2024-08-05] MEDS: BUPIVACAINE 0.25% 10ML INJ 25 MG IJ (13:45)
[2024-08-05] MEDS: LIDOCAINE 1% 5ML PF VIAL 5 ML (13:46)
--- NOTE | 2024-08-05 13:46 | P.PCN_ITS ---
Procedure Date: 08/05/24 Time: 13:30 Anesthesiologist:: Trace Lerner CRNA Complications:: None Pre-procedure Diagnosis:: Bilateral sacroiliitis Post-procedure Diagnosis:: Same Indications for Procedure:: Patient is a pleasant 44-year-old female comes our clinic today for bilateral sacroiliac joint injections of cortisone and local anesthetic. Patient describes low lumbar back pain off the midline bilaterally as constant, dull, aching. Left greater than right. She reports having difficulty transitioning from sitting to standing. Patient is status post right sacroiliac joint fusion. Procedure Details:: Procedure: Bilateral sacroiliac joint injections under fluoroscopy Informed consent was obtained and the risks and benefits of the procedure were explained to the patient.~ The patient was taken to the procedure room and noninvasive monitors were placed including a noninvasive blood pressure cuff and pulse oximeter.~ The patient was placed prone on the procedure table. Both hips were cleansed using Betadine as a cleansing solution. C-arm fluoroscopy was used to view the right sacroiliac joint.~ The skin and subcutaneous tissues were anesthetized using lidocaine 1.5% and a 25-gauge needle.~ After this, a 22-gauge spinal needle was inserted under fluoroscopic guidance into the inferior aspect of the right sacroiliac joint.~ Omnipaque dye was injected and good spread was seen throughout the joint.~ After this, approximately 5 mL of bupivacaine, 0.25% and Depo-Medrol, 40 mg was incrementally injected into the right sacroiliac joint. We then moved to the left sacroiliac joint.~ The skin and subcutaneous tissues were anesthetized using lidocaine 1.5% and a 25-gauge needle.~ After this, a 22- gauge spinal needle was inserted under fluoroscopic guidance into the inferior aspect of the left sacroiliac joint.~ Omnipaque dye was injected and good spread was seen throughout the joint. After this, approximately 5 mL of bupivacaine, 0.25% and Depo-Medrol, 40 mg was incrementally injected into the left sacroiliac joint.~ The patient tolerated the procedure well with no complications. The patient was observed in the Pain Clinic and then was discharged home neurologically intact. Plan and Disposition:: Patient was discharged without incident.
[2024-08-05 13:48] VITALS: BP 125/59; PULSE 66; RESP 18; O2SAT 98
--- NOTE | 2024-08-05 13:52 | XR_ITS ---
FINAL REPORT CLINICAL HISTORY: Foot Pain FINDINGS: Right foot THREE VIEW FINDINGS: Three views show no evidence of an acute, displaced fracture or dislocation of the visualized bony architecture. The joint spaces appear normal. Minimal calcaneal spurring is present. IMPRESSION: Unremarkable exam. Authenticated and ERN
--- NOTE | 2024-08-05 13:52 | XR_ITS ---
FINAL REPORT CLINICAL HISTORY: Foot Pain FINDINGS: Left foot THREE VIEW FINDINGS: Three views show no evidence of an acute, displaced fracture or dislocation of the visualized bony architecture. The joint spaces appear normal. Minimal calcaneal spurring is present. IMPRESSION: Unremarkable exam. Authenticated and ERN
== END 2024-08-05 13:48 | disposition home or self-care (01) ==
PROVIDERS: PCP Nurse Practitioner Family; Visit Provider Nurse Anesthetist, Certified Registered
DX: M46.1 Sacroiliitis, not elsewhere classified (principal); M79.673 Pain in unspecified foot
CPT/HCPCS: 27096; 73630; G0260; J1010

== ENCOUNTER 2024-08-12 08:50 | Day surgery (SDC) | payer BC, SELFPAY ==
[2024-08-12 09:01] VITALS: BP 115/68; PULSE 68; RESP 16; TEMP 36.8; O2SAT 100; BMI 35.0
[2024-08-12 09:10] VITALS: BP 119/80; PULSE 57; RESP 18; O2SAT 98
[2024-08-12 09:13] VITALS: BP 119/80; PULSE 57; RESP 18; O2SAT 98
[2024-08-12 09:25] VITALS: BP 113/73; PULSE 61; RESP 18; O2SAT 96
--- NOTE | 2024-08-12 09:29 | EXP.PAIN.PRO ---
Procedure Date: 08/12/24 Time: 09:20 Anesthesiologist:: Trace Lerner CRNA Complications:: None Pre-procedure Diagnosis:: Generative disc lumbar spine multilevels. Lumbar radiculopathy. Bilateral sacroiliitis. Post-procedure Diagnosis:: Same. Indications for Procedure:: Is a very pleasant 44-year-old female who comes our clinic today for intrathecal pain pump interrogation and refill. Patient is currently being managed with morphine sulfate 1 mg/mL at a rate of 0.2 to 03 mg/day. She is doing very well with her current settings. She is not reporting any side effects or complications. She is not requesting changes. Patient is awake alert [place] x 3. In no acute distress. Flexion-extension lumbar spine somewhat guarded secondary to pain. Deep tendon reflexes upper and lower extremities normal. Motor strength upper and lower extremities normal. There is no gross sensory deficit. Gait is normal. Procedure Details:: Details of the procedure explained to the patient. The patient taken procedure room placed in sitting position. The area over the pump was cleansed using chlorhexidine as a cleansing solution. The pump was interrogated. The pump was accessed with ease using a 22-gauge inch and half needle. 8.4 mL of solution was withdrawn discarded appropriate. The pump was then filled with 20 cc of solution containing morphine sulfate 1 mg/mL. No change in current intrathecal pain pump rate. Patient tolerated procedure without difficulty. No complications. Plan and Disposition:: Patient was discharged without incident.
== END 2024-08-12 09:25 | disposition home or self-care (01) ==
PROVIDERS: PCP Nurse Practitioner Family; Visit Provider Nurse Practitioner Family
DX: M51.16 Intervertebral disc disorders with radiculopathy, lumbar region (principal); M46.1 Sacroiliitis, not elsewhere classified
CPT/HCPCS: 95991

== ENCOUNTER 2024-09-03 14:32 | Outpatient (POV) | payer BC, SELFPAY ==
--- NOTE | 2024-09-03 14:39 | EXP.PAIN.SOA ---
[facility] Disclaimer: The information contained in this section may have been updated after the patient was seen, as this information can be updated by other users. Medical History Sleep apnea Urinary tract infection Kidney stone History of COVID-19 Asthma Migraine Eczema Allergies Palpitations History of anemia DDD (degenerative disc disease), lumbar DDD (degenerative disc disease), cervical CRPS (complex regional pain syndrome) Headache HLD (hyperlipidemia) HTN (hypertension) Surgical History History of cholecystectomy Family History Other Family history of cancer Family history of diabetes mellitus type II Family history of stroke Social History Smoking Status: Current every day smoker tobacco type: cigarettes packs per day: 1 alcohol intake: never substance use type: denies use current occupational status: unemployed Travel in the last 8 weeks: None household members: spouse and family housing: house marital status: education level: college service: No caffeine: Yes special joshua needs: No do you feel safe at home: Yes victim of physical abuse: No victim of emotional abuse: No victim of sexual abuse: No would you like helpful sources: No PM Subjective & Objective Subjective Subjective:: Patient is a pleasant 44-year-old female who presents today for follow-up of bilateral SI injections on 08/05/2024. Today she rates her pain a 3 out of 10. Patient denies any new trauma or injury. She does state that she has had approximately 80% improvement following these injections and feels like it still helping. Patient does state that the left side was the worst side when she went in for this injection and it did significantly improve this. Patient has had a right SI fusion and states that the injections did help this as well but was more like a little boost. Patient does state from her last visit on Sunday or Sunday she did have a lot of extra neck and headache symptoms that just was not improving even with her pump however it has subsided and she is doing well. Patient is currently managed with intrathecal morphine 1 mg/mL with a daily dose of 0.2203 mg/day. She denies any side effects from this medication. Patient is also prescribed compounded cream from our office. Her Josemanuel has been reviewed and is appropriate. Review of Systems: General: No recent weight changes, no fever, no sleep disturbances Respiratory: No cough, no shortness of air, no recurring pulmonary infections Cardiovascular/peripheral vascular: No chest pain, no palpitations, no edema, no shortness of breath Gastrointestinal: No new onset incontinence, normal bowel movements reported Genitourinary: No new onset incontinence Musculoskeletal: Low back pain Psychiatric: [Normal mood/affect] Neurological: [Denies weakness in extremities], [denies balance issues] Pain at rest (0-10 scale): 3 Objective Objective:: Physical Exam: General: Alert and oriented x3, no acute distress, pleasant and cooperative Lungs: Respirations even and unlabored, symmetrical chest expansion Eyes: PERRL Musculoskeletal: Flexion and extension of lumbar [spine] somewhat guarded secondary to pain, [antalgic gait noted] Neurological: Speech clear, no gross sensory deficit Has patient had previous pain injection?: Yes Percent improvement in pain since last injection: 80% Conservative treatment options previously tried: Home exercise plan Length of treatment: Longer than 12 weeks Meds Home Medications and Allergies Home Medications ?Medication ?Instructions ?Recorded ?Confirmed ?Type lisinopril 40 mg tablet 40 mg PO DAILY High blood pressure 05/19/21 08/12/24 History metoprolol succinate 50 mg 50 mg PO DAILY High blood pressure 05/19/21 08/12/24 History tablet,extended release 24 hr escitalopram oxalate 20 mg tablet 40 mg PO DAILY Depression 04/17/23 08/12/24 History furosemide 20 mg tablet 20 mg PO NEEDED PRN Fluid 08/21/23 08/12/24 History meloxicam 15 mg tablet 15 mg PO ONCE 08/21/23 08/12/24 History baclofen 5 mg tablet 5 mg PO BID #60 tabs 06/12/24 08/12/24 Rx bupropion HCl 150 mg 24 hr tablet, 150 mg PO DAILY 08/06/24 08/12/24 History extended release famotidine 40 mg tablet 40 mg PO DAILY 08/06/24 08/12/24 History nifedipine 30 mg tablet,extended 30 mg PO DAILY 08/06/24 08/12/24 History release 24 hr rosuvastatin 10 mg tablet 10 mg PO DAILY 08/06/24 08/12/24 History spironolactone 50 mg tablet 50 mg PO DAILY 08/06/24 08/12/24 History bupropion HCl 150 mg 24 hr tablet, 150 mg PO DAILY Depression/Anxiety 08/20/24 08/20/24 History extended release buspirone 10 mg tablet 10 mg PO BID #60 tabs 08/20/24 08/20/24 Rx cream base no.39 (bulk) (Versapro applic topical 08/20/24 08/20/24 History Cream Base topical) famotidine 40 mg tablet 40 mg PO BID Acid Reflux 08/20/24 08/20/24 History galcanezumab-gnlm 120 mg/mL mg SQ Migraines 08/20/24 08/20/24 History subcutaneous pen injector (Emgality Pen) levonorgestrel 21 mcg/24 hr (up to intrauterine control/hormones 08/20/24 08/20/24 History 8 years) 52 mg intrauterine device (Mirena) nifedipine 30 mg tablet,extended 30 mg PO DAILY High Blood Pressure 08/20/24 08/20/24 History release rosuvastatin 10 mg tablet 10 mg PO DAILY High Cholesterol 08/20/24 08/20/24 History spironolactone 50 mg tablet 50 mg PO DAILY High Blood Pressure 08/20/24 08/20/24 History New Prescriptions to Start Prescriptions: Allergies Allergy/AdvReac Type Severity Reaction Status Date / Time hydroxyzine Allergy Intermediate tongue Verified 08/20/24 12:35 swell Corticosteroids AdvReac Redness of Verified 08/20/24 12:35 (Glucocorticoids) Skin Assessment and Plan *Assessment and plan (1) Low back pain: Status: Chronic Category: Medical Code(s): M54.50 - Low back pain, unspecified (2) Degenerative joint disease (DJD) of lumbar spine: Status: Chronic Category: Medical Code(s): M47.816 - Spondylosis without myelopathy or radiculopathy, lumbar region (3) Lumbar facet arthropathy: Status: Chronic Category: Medical Code(s): M47.816 - Spondylosis without myelopathy or radiculopathy, lumbar region (4) Lumbar spondylosis: Status: Chronic Category: Medical Code(s): M47.816 - Spondylosis without myelopathy or radiculopathy, lumbar region Plan Patient is doing well following her SI injections and does not require any additional injection therapy. Patient did mention that for what ever reason it appears that her pump refills or not within network and she is having to pay [id number] cost. I have discussed with the patient that it may be beneficial to call her insurance and ask additional questions. Will also check with our investments manager here to see if she can find out any additional information regarding this. Patient will return to clinic on or before her next intrathecal refill. We will see the patient back in the clinic at the next intrathecal refill. Patient has been instructed to contact the clinic with any concerns before the next appointment. Dr. De La Cruz has reviewed this note and agrees with this plan of care. This note was dictated using voice recognition software and make contain errors or omissions. -- It Is medically necessary for this patient to continue to have their intrathecal pump refilled at regular intervals. This patient had an intrathecal pain pump implanted after meeting criteria of chronic intractable pain for greater than 3 months and failing conservative treatments. Patient has committed and been compliant to the treatment plan and all planned follow up care. Since implantation of the intrathecal pain pump, the patient has had decreased pain and been more functional. Oral medications have been reduced including intake of oral opioids. Patient continues to do well with intrathecal therapy with decrease in pain symptoms and increase in functional status. Stopping intrathecal medications can lead to life threatening withdrawal, seizures, cardiac arrest, severe pain, and possible . Pumps that are not refilled at regular intervals can be damages and cause and need for replacement. We continually titrate dose and concentration to optimize pain relief and function. We are limited in concentration for certain drugs to safely deliver medications through the pump and stay within the recommendations from the Polyanalgesic Consensus Committee Guidelines. Depending on dose and concentration these pumps may need to be refilled sooner than 3 months as we titrate.
[2024-09-03 15:34] VITALS: BP 117/71; PULSE 68; RESP 16; O2SAT 96; BMI 35.0
== END 2024-09-03 23:59 | disposition home or self-care (01) ==
LOC: SC.PAIN 14:33
PROVIDERS: PCP Nurse Practitioner Family; Visit Provider Nurse Practitioner Family
DX: M54.50 Low back pain, unspecified (principal); G89.29 Other chronic pain; M47.816 Spondylosis without myelopathy or radiculopathy, lumbar region; F17.210 Nicotine dependence, cigarettes, uncomplicated; Z79.899 Other long term (current) drug therapy
CPT/HCPCS: 99212; G0463

== ENCOUNTER 2024-09-05 10:00 | Emergency (ER) | payer BC, SELFPAY ==
[2024-09-05 10:02] VITALS: BP 142/84; PULSE 70; RESP 16; TEMP 36.8; O2SAT 98; BMI 34.9
--- NOTE | 2024-09-05 10:07 | HMH.EDGENADL ---
Discharge Plan Disposition Patient Disposition: Home, Self-Care Condition: Good Prescriptions Prescriptions: No Action nifedipine 30 mg tablet extended release 24hr 30 mg PO DAILY Patient Comments: TAKE ONE TABLET BY MOUTH EVERY DAY bupropion HCl 150 mg tablet extended release 24 hr 150 mg PO DAILY Patient Comments: TAKE ONE TABLET BY MOUTH DAILY rosuvastatin 10 mg tablet 10 mg PO DAILY Patient Comments: TAKE ONE TABLET BY MOUTH EVERY DAY FOR CHOLESTEROL famotidine 40 mg tablet 40 mg PO DAILY Patient Comments: TAKE ONE TABLET BY MOUTH TWICE DAILY FOR heartburn spironolactone 50 mg tablet 50 mg PO DAILY Patient Comments: TAKE ONE TABLET BY MOUTH ONCE DAILY Versapro Cream Base Cream See Rx Instructions .ROUTE .COMPLEX Rx Instructions: SEE INSTRUCTIONS spironolactone 50 mg tablet 50 mg PO DAILY rosuvastatin 10 mg tablet 10 mg PO DAILY nifedipine 30 mg tablet extended release 30 mg PO DAILY famotidine 40 mg tablet 40 mg PO BID bupropion HCl 150 mg tablet extended release 24 hr 150 mg PO DAILY Mirena 21 mcg/24 hr (8 yrs) 52 mg intrauterine device 1 device intrauterine DIRECTED Emgality Pen 120 mg/mL pen injector See Rx Instructions .ROUTE .COMPLEX Rx Instructions: NA buspirone 10 mg tablet 10 mg PO BID Qty: 60 5RF Rx Instructions: Take 1 tablet nightly x 14 days then increase to 1 tablet twice a day thereafter. metoprolol succinate 50 mg tablet extended release 24 hr 50 mg PO DAILY lisinopril 40 mg tablet 40 mg PO DAILY escitalopram oxalate 20 mg tablet 40 mg PO DAILY meloxicam 15 mg tablet 15 mg PO ONCE Patient Comments: TAKE 1 TABLET BY MOUTH EVERY DAY furosemide 20 mg tablet 20 mg PO NEEDED PRN (Reason: Fluid) Patient Comments: TAKE 1 TABLET BY MOUTH TWICE WEEKLY NEEDED baclofen 5 mg tablet 5 mg PO BID Qty: 60 2RF Referrals Follow up/Referrals: Ruthann Ramos [Primary Care Provider] - See instructions Activity Restrictions/Add. Instructions Additional Instructions/Restrictions: Follow-up with the pain team as discussed. If you develop any new or worsening symptoms, or if you become concerned for your health for any reason, return to the emergency department for evaluation Clinical Impressions Clinical Impression: Acute exacerbation of chronic low back pain Print Language Print Language: Kazakh Discharge ED Provider: Nate Noyola Adult HPI General Chief complaint: PAIN Stated complaint: Pain in Hips, back, neck, headache Time Seen by Provider: 09/05/24 10:07 History of Present Illness HPI narrative: Junie Huffman is a 44y female with a history of degenerative disc disease, bulging disc, arthritis, chronic neck pain and back pain status post intrathecal pain pump who presents to the emergency department for complaints of pain. Patient states that she has chronic SI joint pain, lower back pain and neck pain due to bulging disks and arthritis in his seen at pain management clinic. She states that today, she woke up and the pain was severe. She states that her pain pump has been working and she gave an additional morphine bolus at home, however the pain did not subside. She contacted the pain management clinic, however they were unable to see her today as they are fully booked up and told her to come to the emergency department. She states that the pain is very typical of her chronic pain, just worse than normal. She denies any recent trauma, fever, urinary/bowel incontinence or constipation, numbness or tingling. She denies any fevers. Related Data Home Medications ?Medication ?Instructions ?Recorded ?Confirmed lisinopril 40 mg tablet 40 mg PO DAILY High blood pressure 05/19/21 09/03/24 metoprolol succinate 50 mg 50 mg PO DAILY High blood pressure 05/19/21 09/03/24 tablet,extended release 24 hr escitalopram oxalate 20 mg tablet 40 mg PO DAILY Depression 04/17/23 09/03/24 furosemide 20 mg tablet 20 mg PO NEEDED PRN Fluid 08/21/23 09/03/24 meloxicam 15 mg tablet 15 mg PO ONCE 08/21/23 09/03/24 bupropion HCl 150 mg 24 hr tablet, 150 mg PO DAILY 08/06/24 09/03/24 extended release famotidine 40 mg tablet 40 mg PO DAILY 08/06/24 09/03/24 nifedipine 30 mg tablet,extended 30 mg PO DAILY 08/06/24 09/03/24 release 24 hr rosuvastatin 10 mg tablet 10 mg PO DAILY 08/06/24 09/03/24 spironolactone 50 mg tablet 50 mg PO DAILY 08/06/24 09/03/24 bupropion HCl 150 mg 24 hr tablet, 150 mg PO DAILY Depression/Anxiety 08/20/24 09/03/24 extended release cream base no.39 (bulk) (Versapro See Rx Instructions .Route .COMPLEX 08/20/24 09/03/24 Cream Base topical) famotidine 40 mg tablet 40 mg PO BID Acid Reflux 08/20/24 09/03/24 galcanezumab-gnlm 120 mg/mL See Rx Instructions .Route 08/20/24 09/03/24 subcutaneous pen injector .COMPLEX Migraines (Emgality Pen) levonorgestrel 21 mcg/24 hr (up to 1 device intrauterine DIRECTED 08/20/24 09/03/24 8 years) 52 mg intrauterine device control/hormones (Mirena) nifedipine 30 mg tablet,extended 30 mg PO DAILY High Blood Pressure 08/20/24 09/03/24 release rosuvastatin 10 mg tablet 10 mg PO DAILY High Cholesterol 08/20/24 09/03/24 spironolactone 50 mg tablet 50 mg PO DAILY High Blood Pressure 08/20/24 09/03/24 Previous Rx's ?Medication ?Instructions ?Recorded baclofen 5 mg tablet 5 mg PO BID #60 tabs 06/12/24 buspirone 10 mg tablet 10 mg PO BID #60 tabs 08/20/24 Allergies Allergy/AdvReac Type Severity Reaction Status Date / Time hydroxyzine Allergy Intermediate tongue Verified 08/20/24 12:35 swell Corticosteroids AdvReac Redness of Verified 08/20/24 12:35 (Glucocorticoids) Skin PFSH PFSH Disclaimer: The information contained in this section may have been updated after the patient was seen, as this information can be updated by other users. Medical History Sleep apnea Urinary tract infection Kidney stone History of COVID-19 Asthma Migraine Eczema Allergies Palpitations History of anemia DDD (degenerative disc disease), lumbar DDD (degenerative disc disease), cervical CRPS (complex regional pain syndrome) Headache HLD (hyperlipidemia) HTN (hypertension) Surgical History History of cholecystectomy Family History Other Family history of cancer Family history of diabetes mellitus type II Family history of stroke Social History Smoking Status: Never smoker alcohol intake: never substance use type: denies use current occupational status: other Travel in the last 8 weeks: None household members: spouse and family housing: house marital status: education level: college service: No caffeine: Yes special joshua needs: No do you feel safe at home: Yes victim of physical abuse: No victim of emotional abuse: No victim of sexual abuse: No would you like helpful sources: No Other Medical History Have you received the Flu Vaccine for this season: No Have you received the Pneumonia Vaccine: No ROS Obtained: Yes Systems reviewed as appropriate & no additional complaints except as documented Physical Exam General General appearance: alert and in no apparent distress Comment: Tearful, appears uncomfortable Head Head exam: atraumatic Eye Eye exam: Present normal appearance ENT ENT exam: Present normal external ear exam Neck Neck exam: Present full ROM Chest Chest inspection: Present symmetric chest wall rise Respiratory Respiratory exam: Present normal lung sounds bilaterally; Absent respiratory distress Cardiovascular Cardiovascular exam: Present regular rate and normal rhythm Abdominal Exam Abdominal exam: Present soft Extremities Exam Extremities exam: Present normal inspection Back Exam Back exam: Present normal inspection and tenderness (Mid thoracic/upper lumbar) Neurological Exam Neurological exam: Present alert and oriented X3 Psychiatric Psychiatric exam: Present normal affect Skin Skin exam: Present warm and dry Medical Decision Making Medical Records Screening: Per USPSTF and CDC recommendations, given the prevalence of disease in our region, it is our hospital?s policy to screen for HIV and viral Hepatitis for all patients aged 18 and over and those with ongoing risk factors. Josemanuel Inquiry Pt receiving controlled substance: No Vital Signs: 09/05/24 10:02 09/05/24 11:08 Temperature 98.3 F Temperature Source Oral Pulse Rate 86 Pulse Rate [Left Radial] 70 Respiratory Rate 16 Blood Pressure 157/87 H Blood Pressure [Right Arm] 142/84 H Blood Pressure Mean 103 Blood Pressure Mean [Right Arm] 103 Blood Pressure Source [Right Arm] Automatic Cuff Blood Pressure Position [Right Arm] Sitting 02 Sat by Pulse Oximetry 98 99 Oxygen Delivery Method Room Air Room Air Orders (Tests/Meds): ED MEDICATIONS Discontinued Medications Generic Name Dose Route Start Last Admin Trade Name Freq PRN Reason Stop Dose Admin Hydromorphone HCl 1 mg 09/05/24 10:13 09/05/24 10:28 Hydromorphone 2mg/Ml Syringe IV 09/05/24 10:14 Not Given ONCE ONE Morphine Sulfate 4 mg 09/05/24 10:14 09/05/24 10:21 Morphine 4mg/Ml Syringe IV 09/05/24 10:15 4 mg ONCE ONE Administration Ondansetron HCl 4 mg 09/05/24 11:10 09/05/24 11:14 Ondansetron 4mg Odt SL 09/05/24 11:11 4 mg ONCE ONE Administration Medical Decision Narrative: Junie Huffman is a 44-year-old female with a past medical history of bulging disc, arthritis, intrathecal pain pump, chronic neck pain who presents to the emergency department for complaints of worsening of her chronic SI joint/back pain. She states that she gave a bolus on top of her basal morphine rate through her intrathecal pain pump, however this did not resolve her symptoms. She denies any recent trauma. She does note that she was more active yesterday, getting in and out of the car frequently. She states that she attempted to call the pain management clinic, however they were fully booked up today and could not get her in and advised her to come to the emergency department. She states that usually when she has worsening pain, she is able to lie down throughout the day and the pain improves, however today's pain is more severe than it has been previously. She denies any other symptoms, including numbness, tingling, trauma, or red flag symptoms for cauda equina. Differential diagnosis: Breakthrough pain, herniated disc, arthritis, cauda equina, among others. CT imaging of the lumbar and thoracic spine were considered, however given that this is worsening of the patient's chronic pain without evidence of trauma or red flag symptoms, is felt that this is not indicated at this time as it would not change ED management. Patient's symptoms were treated with 4 mg of IV morphine initially. No labs are indicated at this time. On reassessment, patient was able to ambulate without significant pain. She reported improvement in her pain and was unamenable to discharge at this time. She was encouraged to follow-up with her pain clinic. Return precautions were given. All questions were answered. She demonstrated understanding and was in agreement with this plan. She was then discharged from the emergency department in stable condition. Critical Care Critical Care Time Critical Care Time: No
--- NOTE | 2024-09-05 10:09 | PC.NURSE ---
Dr. Noyola at [facility] for pt eval
[2024-09-05] MEDS: MORPHINE 4MG/ML SYRINGE 4 MG IV (10:21)
[2024-09-05 11:08] VITALS: BP 157/87; PULSE 86; O2SAT 99
[2024-09-05] MEDS: ONDANSETRON 4MG ODT 4 MG SL (11:14)
--- NOTE | 2024-09-05 11:33 | PC.NURSE ---
rounded on patient; no other needs at this time. pt lying on ED stretcher supine with call light within reach
[2024-09-05 12:41] VITALS: BP 157/87; PULSE 86; RESP 16; TEMP 36.8; O2SAT 99
== END 2024-09-05 12:42 | disposition home or self-care (01) ==
PROVIDERS: Emergency Provider Student in an Organized Health Care Education/Training Program; PCP Nurse Practitioner Family
DX: M54.50 Low back pain, unspecified (principal); M25.551 Pain in right hip; M25.552 Pain in left hip; M54.2 Cervicalgia
CPT/HCPCS: 96374; 99283; J2270; Q0162

== ENCOUNTER 2024-09-10 10:25 | Outpatient (POV) | payer BC, SELFPAY ==
--- NOTE | 2024-09-10 10:44 | P.PCN_ITS ---
Procedure Date: 09/10/24 Time: 10:45 Anesthesiologist:: Muriel Valdez APRN Complications:: None Pre-procedure Diagnosis:: Degenerative disc disease of lumbar spine with lumbar radiculopathy symptoms, sacroiliitis, left hip pain, degenerative disc disease of cervical spine Post-procedure Diagnosis:: Same Indications for Procedure:: Patient is a pleasant 44-year-old female who presents today for worsening pain. Today she rates her pain a 6 out of 10. She does state that from her last visit she has had increased low back neck and left hip pain. Patient states that it does come and go however on Sunday it was severe and that she ended up going to the ER because she could not get into our office. Patient states that they did give her 4 mg morphine IV and it did help. Patient states prior to that she had tried her bolus device the compounded cream and Tylenol and ibuprofen with no improvement. She is managed with morphine 1 mg/mL with a daily dose of 0.2203 mg/day. She denies any side effects from this medication. Her Josemanuel has been reviewed and is appropriate. Physical Exam: General: Alert and oriented x3, no acute distress, pleasant and cooperative Lungs: Respirations even and unlabored, symmetrical chest expansion Eyes: PERRL Musculoskeletal: Flexion and extension of lumbar [spine] somewhat guarded secondary to pain, [antalgic gait noted] Neurological: Speech clear, no gross sensory deficit Procedure Details:: Informed consent was obtained and the risk and benefits of the procedure were explained to the patient. Patient was taken to the procedure room where noninvasive monitoring was placed including noninvasive blood pressure cuff and pulse oximeter. Patient's pump was interrogated and was reprogrammed to morphine 0.2640 mg/day. The patient tolerated the procedure well with no complications. Plan and Disposition:: Patient tolerated her intrathecal increase with no complications and was discharged neurologically intact. Patient was discussed that we will order x- ray imaging of her neck, low back and left hip with the plan to proceed forward with advanced imaging in the future. Patient states it has been over a year since her last imaging. Patient tolerated her intrathecal adjustment and reprogram with no complications and was discharged neurologically intact. Patient is scheduled for her next refill on September 26. We will see the patient back in the clinic at the next intrathecal refill. Patient has been instructed to contact the clinic with any concerns before the next appointment. Dr. De La Cruz has reviewed this note and agrees with this plan of care. This note was dictated using voice recognition software and make contain errors or omissions. -- It Is medically necessary for this patient to continue to have their intrathecal pump refilled at regular intervals. This patient had an intrathecal pain pump implanted after meeting criteria of chronic intractable pain for greater than 3 months and failing conservative treatments. Patient has committed and been compliant to the treatment plan and all planned follow up care. Since implantation of the intrathecal pain pump, the patient has had decreased pain and been more functional. Oral medications have been reduced including intake of oral opioids. Patient continues to do well with intrathecal therapy with decrease in pain symptoms and increase in functional status. Stopping intrathecal medications can lead to life threatening withdrawal, seizures, cardiac arrest, severe pain, and possible . Pumps that are not refilled at regular intervals can be damages and cause and need for replacement. We continually titrate dose and concentration to optimize pain relief and function. We are limited in concentration for certain drugs to safely deliver medications through the pump and stay within the recommendations from the Polyanalgesic Consensus Committee Guidelines. Depending on dose and concentration these pumps may need to be refilled sooner than 3 months as we titrate.
[2024-09-10 10:45] VITALS: BP 132/83; PULSE 69; RESP 16; O2SAT 97; BMI 35.0
--- NOTE | 2024-09-10 10:59 | XR_ITS ---
PROCEDURE INFORMATION: Exam: XR Cervical Spine Exam date and time: 09/10/2024 11:23 AM Age: 44 years old Clinical indication: Injury or trauma; Other: Pain after fall TECHNIQUE: Imaging protocol: Radiologic exam of the cervical spine. Views: 4 or 5 views. COMPARISON: CR XR MULTIPLE SPINE 6+V 12/05/2021 3:32 PM FINDINGS: Bones/joints: There is mild reversal of cervical lordosis lower cervical spine believed degenerative in nature. Mild-moderate degenerative changes lower cervical spine with disc space narrowing and mild osteophytic lipping C5-C6 and C6-C7.. Remaining disc heights are maintained. There is mild acquired foraminal narrowing C6-C7. Remainder of the neural foramina are patent. No evidence of fracture or subluxation. Soft tissues: Unremarkable. IMPRESSION: Mild-moderate spondylitic changes lower cervical spine. No acute bony abnormalities.
--- NOTE | 2024-09-10 10:59 | XR_ITS ---
PROCEDURE INFORMATION: Exam: XR Left Hip Exam date and time: 09/10/2024 11:23 AM Age: 44 years old Clinical indication: Injury or trauma; Other: Pain after fall TECHNIQUE: Imaging protocol: Radiologic exam of the left hip. Views: 2 or 3 views hip with pelvis when performed. COMPARISON: CR XR LUMBAR SPINE MIN 4V 09/10/2024 11:23 AM FINDINGS: Bones/joints: Unremarkable. No fracture, malalignment or deformity detected. No significant degenerative joint changes. Soft tissues: There is an IUD and neuro stimulatory button device partially visualized. IMPRESSION: No acute bony abnomalities.
--- NOTE | 2024-09-10 10:59 | XR_ITS ---
PROCEDURE INFORMATION: Exam: XR Lumbosacral Spine Exam date and time: 09/10/2024 11:23 AM Age: 44 years old Clinical indication: Pain; Other: Low back to left leg TECHNIQUE: Imaging protocol: Radiologic exam of the lumbosacral spine. Views: 4 or 5 views. COMPARISON: CR XR MULTIPLE SPINE 6+V 12/05/2021 3:32 PM FINDINGS: Bones/joints: Lumbar curvature and alignment is unremarkable. There are no compression fractures or spondylolisthesis. Disc heights are maintained. There are mild degenerative facet joint changes lower lumbar spine. There are postoperative changes from prior syndesmosis of the right sacroiliac joint, unchanged. Soft tissues: Paraspinal soft tissues are unremarkable. There is a neurostimulator device implanted within the right buttock with electrodes extending into the thoracic spinal canal above the field of view. There is a 2nd electronic monitoring device or infusion pump implanted within the left posterior flank IMPRESSION: Mild degenerative facet arthrosis lower lumbar spine. No acute abnormalities.
== END 2024-09-10 23:59 | disposition home or self-care (01) ==
PROVIDERS: PCP Nurse Practitioner Family; Visit Provider Nurse Practitioner Family
DX: M51.16 Intervertebral disc disorders with radiculopathy, lumbar region (principal); M46.1 Sacroiliitis, not elsewhere classified; M25.552 Pain in left hip; M50.30 Other cervical disc degeneration, unspecified cervical region
CPT/HCPCS: 62368; 72050; 72110; 73502; 99212; 99213; G0463

== ENCOUNTER 2024-09-30 09:14 | Day surgery (SDC) | payer BC, SELFPAY ==
[2024-09-30 09:27] VITALS: BP 119/70; PULSE 67; RESP 16; TEMP 36.8; O2SAT 97; BMI 35.0
[2024-09-30 09:38] VITALS: BP 136/87; PULSE 52; RESP 18; O2SAT 95
[2024-09-30 09:39] VITALS: BP 136/87; PULSE 54; RESP 18; O2SAT 95
[2024-09-30 09:47] VITALS: BP 117/75; PULSE 57; RESP 16; O2SAT 97
--- NOTE | 2024-09-30 10:28 | EXP.PAIN.PRO ---
Procedure Date: 09/30/24 Time: 09:45 Anesthesiologist:: Trace Lerner CRNA Complications:: None Pre-procedure Diagnosis:: Degenerative disc lumbar spine multilevels. Lumbar radiculopathy. Lumbar postlaminectomy syndrome. Post-procedure Diagnosis:: Same. Indications for Procedure:: Patient is a pleasant 44-year-old female that comes our clinic today for intrathecal pain pump interrogation and refill. Patient currently being managed with morphine sulfate 1 mg/mL. Patient is requesting increase in the pump rate due to low back pain. I will increase her pump by 20%. Her new rate will be 0.3172 mg/day. Otherwise, patient doing very well. Not reporting any complications or side effects. Patient is awake alert [place] x 3. No acute distress. Flexion-extension lumbar spine somewhat guarded secondary to pain. Deep tendon reflexes upper and lower extremities normal. Motor strength upper and lower extremities normal. There is no gross sensory deficit. Gait is normal. Procedure Details:: Details of the procedure explained to the patient. The patient taken the procedure and placed in the sitting position. The area of the pump was cleansed using chlorhexidine as a cleansing solution. The pump was interrogated. The pump was accessed with ease using a 22-gauge inch and half needle. 7 mL of solution with withdrawn and discarded appropriately. The pump was then filled with 20 cc of solution containing morphine sulfate 1 mg/mL. Pump rate will be increased to 0.3172 mg/day. Patient tolerated procedure without difficulty. There are no complications. Plan and Disposition:: Patient was discharged without incident.
== END 2024-09-30 09:47 | disposition home or self-care (01) ==
LOC: SC.PAINP 09:15
PROVIDERS: PCP Nurse Practitioner Family; Visit Provider Nurse Anesthetist, Certified Registered
DX: M51.16 Intervertebral disc disorders with radiculopathy, lumbar region (principal); M96.1 Postlaminectomy syndrome, not elsewhere classified; Z79.891 Long term (current) use of opiate analgesic
CPT/HCPCS: 62370

== ENCOUNTER 2024-10-15 07:59 | Day surgery (SDC) | payer BC, SELFPAY ==
[2024-10-07 15:38] VITALS: BMI 35.0
[2024-10-15] MEDS: LACTATED RINGERS 1000ML 1,000 ML 25 ML IV (08:17)
--- NOTE | 2024-10-15 08:21 | P.PNANES_ITS ---
[facility] Disclaimer: The information contained in this section may have been updated after the patient was seen, as this information can be updated by other users. Medical History Sleep apnea Urinary tract infection Kidney stone History of COVID-19 Asthma Migraine Eczema Allergies Palpitations History of anemia DDD (degenerative disc disease), lumbar DDD (degenerative disc disease), cervical CRPS (complex regional pain syndrome) Headache HLD (hyperlipidemia) HTN (hypertension) Surgical History History of left knee surgery S/P insertion of spinal cord stimulator History of cholecystectomy Family History Other Family history of cancer Family history of diabetes mellitus type II Family history of stroke Social History Smoking Status: Never smoker alcohol intake: never substance use type: denies use current occupational status: other Travel in the last 8 weeks: None household members: spouse and family housing: house marital status: education level: college service: No caffeine: Yes special joshua needs: No do you feel safe at home: Yes victim of physical abuse: No victim of emotional abuse: No victim of sexual abuse: No would you like helpful sources: No [facility] Anesthesia Checklist Patient Identification Patient Identification: Arm Band Structural Data Admitted From: Home Planned Operative Procedure/s: Colonoscopy Consent for Planned Operative Procedure(s) Verified: Yes Verified Documents: Surgical Consent and History and Physical NPO Status Verified Time NPO: 00:00 Additional verifications Anesthesia Reactions: No Hx Blood Transfusions: No Blood Transfusion Reaction: No Airway Assessment Mallampati Score:: Class II C-Spine Mobility Assessed: Yes TMJ Mobility Assessed: Yes Dentition: Good Dentition Neurological Assessment Level of Consciousness: Awake, Alert and Appropriate Anesthesia Plan Anesthesia Risk discussed: Yes Anesthesia Plan: Verified ASA Class: II Anesthesia Type: MAC
[2024-10-15 08:22] VITALS: BP 112/71; PULSE 56; RESP 18; TEMP 36.2; O2SAT 98; BMI 35.0
--- NOTE | 2024-10-15 08:32 | ECG_ITS ---
APPROVED REPORT Exam: Resting ECG HR:52 bpm ECG Measurements Heart Rate 52 AXES TN 169 P 5 QRSd 93 QRS -13 QT 413 T -4 QTc 393 Conclusion SINUS BRADYCARDIA WITH SINUS ARRHYTHMIA MINIMAL VOLTAGE CRITERIA FOR LVH, CONSIDER NORMAL VARIANT [MEETS CRITERIA IN ONE OF: R(aVL), S(V1), R(V5), R(V5/V6)+S(V1)] BORDERLINE ECG UNCONFIRMED REPORT Electronically signed by : Meño Valdez MD 10/15/2024 20:54:37
[2024-10-15 08:47] LABS: HCG Qualitative, Serum Negative (Negative)
[2024-10-15 09:35] VITALS: O2SAT 100
--- NOTE | 2024-10-15 09:43 | P.HP_ITS ---
History of Present Illness *Admission Date: 10/15/24 *Reason for visit:: Defecatory difficulties/constipation alternating with diarrhea *History of present illness: Mrs. Huffman is a 44-year-old female who is here for diagnostic colonoscopy secondary to change in bowel habits with alternating constipation and diarrhea. She also gets some nausea and vomiting. The examination is deemed medically necessary for diagnostic colonoscopy. The patient has been seen, interviewed and examined prior to the procedure by both myself and the anesthesia provider. [facility] Disclaimer: The information contained in this section may have been updated after the patient was seen, as this information can be updated by other users. Medical History (Updated 10/15/24 @ 09:45 by Nils Wise II, MD) Sleep apnea Urinary tract infection Kidney stone History of COVID-19 Asthma Migraine Eczema Allergies Palpitations History of anemia DDD (degenerative disc disease), lumbar DDD (degenerative disc disease), cervical CRPS (complex regional pain syndrome) Headache HLD (hyperlipidemia) HTN (hypertension) Surgical History History of left knee surgery S/P insertion of spinal cord stimulator History of cholecystectomy Family History Other Family history of cancer Family history of diabetes mellitus type II Family history of stroke Social History Smoking Status: Never smoker alcohol intake: never substance use type: denies use current occupational status: other Travel in the last 8 weeks: None household members: spouse and family housing: house marital status: education level: college service: No caffeine: Yes special joshua needs: No do you feel safe at home: Yes victim of physical abuse: No victim of emotional abuse: No victim of sexual abuse: No would you like helpful sources: No Other Medical History Have you received the Flu Vaccine for this season: No Have you received the Pneumonia Vaccine: No Review of Systems Review of Systems Review of systems (narrative): Negative *Cardiovascular Comments: Negative *Gastrointestinal Comments: Negative *Genitourinary Comments: Negative *Musculoskeletal Comments: Negative *Neurologic Comments: Negative Meds Home Medications and Allergies Home Medications ?Medication ?Instructions ?Recorded ?Confirmed ?Type lisinopril 40 mg tablet 40 mg PO DAILY High blood pressure 05/19/21 10/15/24 History metoprolol succinate 50 mg 50 mg PO DAILY High blood pressure 05/19/21 10/15/24 History tablet,extended release 24 hr escitalopram oxalate 20 mg tablet 40 mg PO DAILY Depression 04/17/23 10/15/24 History (Lexapro) furosemide 20 mg tablet 20 mg PO NEEDED PRN Fluid 08/21/23 10/15/24 History meloxicam 15 mg tablet 15 mg PO ONCE 08/21/23 10/15/24 History baclofen 5 mg tablet 5 mg PO BID #60 tabs 06/12/24 10/15/24 Rx nifedipine 30 mg tablet,extended 30 mg PO DAILY 08/06/24 10/15/24 History release 24 hr rosuvastatin 10 mg tablet 10 mg PO DAILY 08/06/24 10/15/24 History bupropion HCl 150 mg 24 hr tablet, 150 mg PO DAILY Depression/Anxiety 08/20/24 10/15/24 History extended release (Wellbutrin XL) buspirone 10 mg tablet 10 mg PO BID #60 tabs 08/20/24 10/15/24 Rx cream base no.39 (bulk) (Versapro See Rx Instructions .Route .COMPLEX 08/20/24 10/07/24 History Cream Base topical) famotidine 40 mg tablet 40 mg PO BID Acid Reflux 08/20/24 10/15/24 History galcanezumab-gnlm 120 mg/mL See Rx Instructions .Route 08/20/24 10/15/24 History subcutaneous pen injector .COMPLEX Migraines (Emgality Pen) levonorgestrel 21 mcg/24 hr (up to 1 device intrauterine DIRECTED 08/20/24 10/07/24 History 8 years) 52 mg intrauterine device control/hormones (Mirena) spironolactone 50 mg tablet 50 mg PO DAILY High Blood Pressure 08/20/24 10/15/24 History ketoconazole 2 % topical cream 1 applic topical BID athletes foot 10/01/24 10/15/24 Rx #30 grams tizanidine 4 mg capsule (Zanaflex) 4 mg PO HS PRN other 10/15/24 10/15/24 History New Prescriptions to Start Prescriptions: Allergies Allergy/AdvReac Type Severity Reaction Status Date / Time hydroxyzine Allergy Intermediate tongue Verified 10/15/24 08:16 swell Corticosteroids AdvReac Redness of Verified 10/15/24 08:16 (Glucocorticoids) Skin Exam Data for Last 24 hours Vital signs and Labs for Last 24 Hours: Temp Pulse Resp BP Pulse Ox O2 Del Method O2 Flow Rate 97.1 F L 56 L 18 112/71 98 Nasal Cannula 5 10/15/24 08:22 10/15/24 08:22 10/15/24 08:22 10/15/24 08:22 10/15/24 08:22 10/15/24 09:35 10/15/24 09:35 Laboratory Results - last 24 hr 10/15/24 08:22: Serum HCG, Qual Negative I & O for Last 24 hours: Intake & Output 10/12/24 10/13/24 10/14/24 10/15/24 23:59 23:59 23:59 23:59 Weight 198 lb *Routine HEENT Exam Head: Present normocephalic Eye: Present EOMI and PERRL ENT: Present mucous membranes moist *Routine Neck Exam Neck: Present supple *Routine Respiratory Exam Respiratory: Present CTA bilaterally *Routine Cardiovascular Exam Cardiovascular: Present RRR *Routine Abdominal Exam Abdominal: Present soft and normoactive bowel sounds; Absent tenderness *Routine Rectal Exam Rectal:: deferred *Routine Genitalia Exam Genitalia:: deferred *Routine Extremities Exam Extremities: Absent cyanosis, clubbing or edema *Routine Skin Exam Skin: Present warm; Absent rash *Routine Neurological Exam Neurological: Present alert and oriented X3 Assessment and Plan *Assessment and plan (1) Change in bowel habits: Status: Acute Category: Medical Code(s): R19.4 - Change in bowel habit (2) Irritable bowel syndrome with alternating bowel habits: Status: Acute Category: Medical Code(s): K58.2 - Mixed irritable bowel syndrome Plan A/P: 1. Change in bowel habits is the preprocedural diagnosis. The patient will be anesthetized/sedated using MAC sedation. The patient has been seen and examined. Cardiac and lung assessment prior to the examination is stable. Proceed with planned colonoscopy
--- NOTE | 2024-10-15 09:45 | P.PCN_ITS ---
[facility] Procedure Note Date: 10/15/24 Time: 09:57 Procedure Note:: Colonoscopy Procedure Report: Colonoscopy with cold biopsies Endoscopist: Nils Wise II, MD Referring physician: KWASI Núñze Date of Procedure: October 15, 2024 Equipment: Olympus 190 variable stiffness pediatric colonoscope Sedation: MAC sedation Indication: Mrs. Huffman is a 44-year-old female with worsening bowel function. She normally has some constipation with 3-4 bowel movements per week and can vary in consistency with some hard balls and incomplete defecation. However, over the last year that she has had panic symptoms with intermittent severe attacks of nausea, vomiting, diaphoresis and vagal symptoms. This has been going on for years but the symptoms are worsening. She will get abdominal crampy discomfort with these attacks. She reports no bright red rectal bleeding, weight loss or family history of IBD or colon cancer. This is her first colonoscopy. She does get some bloating and gassiness. Procedure: Prior to the procedure, a history and physical exam was performed, and patient's medications and allergies were reviewed. The risks, benefits and alternatives of the sedation and procedure were discussed with the patient. All questions were answered and informed consent was obtained. The patient was brought to the procedure room. Patient identification and proposed procedure were verified by the physician and the nurse. The patient was placed in a left lateral decubitus position and the scope was passed under direct vision. Throughout the procedure, the patient's blood pressure, pulse, and oxygen saturations were monitored continuously. The colonoscopy was accomplished without difficulty. The patient tolerated the procedure well. Findings: On digital rectal examination there was normal rectal tone. There were no external hemorrhoids. The colonoscope was introduced through the anal canal to the rectum and advanced to the cecum. The ileocecal valve and appendiceal orifice were identified. The scope was advanced a short distance into the ileum which appeared grossly normal. The scope was then withdrawn into the colon. The cecum, ascending, transverse, descending, sigmoid and rectum were grossly normal. There were a few rare shallow diverticuli in the sigmoid colon. There were no other mucosal abnormalities identified. Random cold biopsies were taken from the right colon to rule out microscopic colitis. Upon retroflexion within the rectum there were grade 1 internal hemorrhoids.The preparation was excellent throughout with [place] Preparation Score of 9. The cecal time was 12 minutes. Impression: 1. Very mild sigmoid diverticulosis 2. Grade 1 internal hemorrhoids Plan: I do feel the patient has IBS with intermittent vagal symptoms. We will discuss dietary measures, treatment options and management today.
[2024-10-15 10:01] VITALS: BP 101/57; PULSE 58; RESP 18; TEMP 36.7; O2SAT 96
[2024-10-15 10:10] VITALS: BP 105/81; PULSE 57; RESP 18; O2SAT 98
[2024-10-15 10:20] VITALS: BP 130/84; PULSE 58; RESP 18; O2SAT 98
[2024-10-15 10:30] VITALS: BP 127/92; PULSE 56; RESP 18; O2SAT 97
== END 2024-10-15 10:30 | disposition home or self-care (01) ==
PROVIDERS: PCP Nurse Practitioner Family; Visit Provider Internal Medicine Gastroenterology
PROC: (CPT 45380; principal; 2024-10-15 09:30)
DX: R19.4 Change in bowel habit (principal); K58.2 Mixed irritable bowel syndrome; K57.30 Diverticulosis of large intestine without perforation or abscess without bleeding; K64.0 First degree hemorrhoids
CPT/HCPCS: 45380; 84703; 93005; J7120

== ENCOUNTER 2024-11-13 09:04 | Emergency (ER) | payer BC, SELFPAY ==
[2024-11-13 09:08] VITALS: BP 142/89; PULSE 60; RESP 18; TEMP 36.6; O2SAT 100; BMI 35.0
--- NOTE | 2024-11-13 09:38 | PC.NURSE ---
DR MUNOZ AT BEDSIDE
--- NOTE | 2024-11-13 09:44 | XR_ITS ---
FINAL REPORT CLINICAL HISTORY: left heel pain COMPARISON: 08/05/2024 FINDINGS: AP, oblique and lateral views of the left foot were obtained. There is no acute fracture or dislocation. The joint spaces are preserved. Soft tissues are unremarkable. IMPRESSION: No acute osseous abnormality of the left foot. Reviewed, Interpreted and Dictated by Dacia Yee MD Transcribed by Lorena Wagner [facility]henticated and [facility]
--- NOTE | 2024-11-13 09:46 | ED_ITS ---
Discharge Plan Disposition Patient Disposition: Home, Self-Care Chief Complaint: Extremity Injury, Lower Prescriptions Prescriptions: No Action nifedipine 30 mg tablet extended release 24hr 30 mg PO DAILY Patient Comments: TAKE ONE TABLET BY MOUTH EVERY DAY rosuvastatin 10 mg tablet 10 mg PO DAILY Patient Comments: TAKE ONE TABLET BY MOUTH EVERY DAY FOR CHOLESTEROL Versapro Cream Base Cream See Rx Instructions .ROUTE .COMPLEX Rx Instructions: SEE INSTRUCTIONS spironolactone 50 mg tablet 50 mg PO DAILY famotidine 40 mg tablet 40 mg PO BID bupropion HCl [Wellbutrin XL] 150 mg tablet extended release 24 hr 150 mg PO DAILY Mirena 21 mcg/24 hr (8 yrs) 52 mg intrauterine device 1 device intrauterine DIRECTED Emgality Pen 120 mg/mL pen injector See Rx Instructions .ROUTE .COMPLEX Rx Instructions: NA buspirone 10 mg tablet 10 mg PO BID Qty: 60 5RF Rx Instructions: Take 1 tablet nightly x 14 days then increase to 1 tablet twice a day thereafter. ketoconazole 2 % cream 1 applic topical BID Qty: 30 2RF metoprolol succinate 50 mg tablet extended release 24 hr 50 mg PO DAILY lisinopril 40 mg tablet 40 mg PO DAILY escitalopram oxalate [Lexapro] 20 mg tablet 40 mg PO DAILY meloxicam 15 mg tablet 15 mg PO ONCE Patient Comments: TAKE 1 TABLET BY MOUTH EVERY DAY furosemide 20 mg tablet 20 mg PO NEEDED PRN (Reason: Fluid) Patient Comments: TAKE 1 TABLET BY MOUTH TWICE WEEKLY NEEDED tizanidine [Zanaflex] 4 mg Capsule 4 mg PO HS PRN (Reason: other) baclofen 5 mg tablet 5 mg PO BID Qty: 60 2RF Referrals Follow up/Referrals: Ruthann Ramos [Primary Care Provider] - See instructions Activity Restrictions/Add. Instructions Additional Instructions/Restrictions: Please follow-up with podiatry no evidence of any fracture or dislocation likely an exacerbation of your known plantar fasciitis. Clinical Impressions Clinical Impression: Pain of plantar aspect of heel Print Language Print Language: Palestinian Discharge ED Provider: Franchesca Gasca General Adult HPI General Chief complaint: Extremity Injury, Lower Stated complaint: AO-11/13/24, pop in L foot, Pain on bottom Time Seen by Provider: 11/13/24 09:11 Mode of Arrival: Ambulatory Source of Information: Patient Limitations: No Limitations Description of Symptoms (Recalled from ER Triage Doc. by RN): left foot pain. walking and felt a pop in her heel area History of Present Illness HPI narrative: Patient is a 44-year-old female with a history of plantar fasciitis who has recently undergone steroid injections and also wears supportive structures in her shoe presents today with left heel pain. Was walking on a flat surface and felt a pop pain localized just distal to her calcaneus on the left foot. No significant soft tissue swelling or inability to bear weight but she does state the pain is so significant that she has to walk on the outside of her foot at this point. Related Data Home Medications ?Medication ?Instructions ?Recorded ?Confirmed lisinopril 40 mg tablet 40 mg PO DAILY High blood pressure 05/19/21 10/15/24 metoprolol succinate 50 mg 50 mg PO DAILY High blood pressure 05/19/21 10/15/24 tablet,extended release 24 hr escitalopram oxalate 20 mg tablet 40 mg PO DAILY Depression 04/17/23 10/15/24 (Lexapro) furosemide 20 mg tablet 20 mg PO NEEDED PRN Fluid 08/21/23 10/15/24 meloxicam 15 mg tablet 15 mg PO ONCE 08/21/23 10/15/24 nifedipine 30 mg tablet,extended 30 mg PO DAILY 08/06/24 10/15/24 release 24 hr rosuvastatin 10 mg tablet 10 mg PO DAILY 08/06/24 10/15/24 bupropion HCl 150 mg 24 hr tablet, 150 mg PO DAILY Depression/Anxiety 08/20/24 10/15/24 extended release (Wellbutrin XL) cream base no.39 (bulk) (Versapro See Rx Instructions .Route .COMPLEX 08/20/24 10/07/24 Cream Base topical) famotidine 40 mg tablet 40 mg PO BID Acid Reflux 08/20/24 10/15/24 galcanezumab-gnlm 120 mg/mL See Rx Instructions .Route 08/20/24 10/15/24 subcutaneous pen injector .COMPLEX Migraines (Emgality Pen) levonorgestrel (Mirena) 1 device intrauterine DIRECTED 08/20/24 10/07/24 control/hormones spironolactone 50 mg tablet 50 mg PO DAILY High Blood Pressure 08/20/24 10/15/24 tizanidine 4 mg capsule (Zanaflex) 4 mg PO HS PRN other 10/15/24 10/15/24 Previous Rx's ?Medication ?Instructions ?Recorded baclofen 5 mg tablet 5 mg PO BID #60 tabs 06/12/24 buspirone 10 mg tablet 10 mg PO BID #60 tabs 08/20/24 ketoconazole 2 % topical cream 1 applic topical BID athletes foot 10/01/24 #30 grams Allergies Allergy/AdvReac Type Severity Reaction Status Date / Time hydroxyzine Allergy Intermediate tongue Verified 10/15/24 08:16 swell Corticosteroids AdvReac Redness of Verified 10/15/24 08:16 (Glucocorticoids) Skin PFSH [facility] Disclaimer: The information contained in this section may have been updated after the patient was seen, as this information can be updated by other users. Medical History (Updated 11/13/24 @ 10:20 by Franchesca Gasca MD) Sleep apnea Urinary tract infection Kidney stone History of COVID-19 Asthma Migraine Eczema Allergies Palpitations History of anemia DDD (degenerative disc disease), lumbar DDD (degenerative disc disease), cervical CRPS (complex regional pain syndrome) Headache HLD (hyperlipidemia) HTN (hypertension) Surgical History History of left knee surgery S/P insertion of spinal cord stimulator History of cholecystectomy Family History Other Family history of cancer Family history of diabetes mellitus type II Family history of stroke Social History Smoking Status: Current every day smoker tobacco type: cigarettes packs per day: 1 alcohol intake: never substance use type: denies use current occupational status: other Travel in the last 8 weeks: None household members: spouse and family housing: house marital status: education level: college service: No caffeine: Yes special joshua needs: No do you feel safe at home: Yes victim of physical abuse: No victim of emotional abuse: No victim of sexual abuse: No would you like helpful sources: No Have you lived/traveled outside [place] in past 30 days?: No Contact w/someone who lives/traveled outside US past 30 days?: No Exposure to someone with infectious disease in past 14 days?: No Do you have a fever (greater than 100.4 F or 38 C)?: No Have you tested positive for COVID-19: No Exposed to someone with COVID-19 in past 14 days?: No Do you have a sore throat?: No Do you have a cough?: No Do you have any weakness?: No Do you have any diarrhea?: No Are you experiencing any unusual bleeding?: No Do you have any muscle aches/pain?: No Do you have any abdominal pain?: No Are you experiencing loss of taste or smell?: No Other Medical History Have you received the Flu Vaccine for this season: No Have you received the Pneumonia Vaccine: No ROS Obtained: Yes All systems reviewed & no additional complaints except as documented Physical Exam General General appearance: alert Respiratory Respiratory exam: Present normal lung sounds bilaterally Cardiovascular Cardiovascular exam: Present regular rate Extremities Exam Extremities exam: Present other (Pain on the plantar surface of the left foot no significant soft tissue swelling) Neurological Exam Neurological exam: Present alert and oriented X3 Medical Decision Making Medical Records Screening: Per USPSTF and CDC recommendations, given the prevalence of disease in our region, it is our hospital?s policy to screen for HIV and viral Hepatitis for all patients aged 18 and over and those with ongoing risk factors. Josemanuel Inquiry Pt receiving controlled substance: No Vital Signs: 11/13/24 09:08 Temperature 98 F Temperature Source Oral Pulse Rate [Right] 60 Respiratory Rate 18 Blood Pressure [Right Arm] 142/89 H Blood Pressure Mean [Right Arm] 106 02 Sat by Pulse Oximetry 100 Oxygen Delivery Method Room Air Orders (Tests/Meds): ORDERS Category Date Time Status Foot XR left minimum 3 views [XR foot LT min 3V] Stat Exams 11/13/24 09:44 Taken Medical Decision Narrative: 44-year-old above history and physical. Exam is largely unremarkable aside from localized tenderness in the plantar fascia. Given her significant mount of pain we will consider a trigger point injection with bupivacaine. X-ray will be performed to rule out fracture dislocation which is unlikely. X-ray performed I personally interpreted there is a heel spur but no fractures or dislocation Trigger point injection performed with improvement in symptoms she has follow-up with podiatry Procedures Miscellaneous Procedure Procedure Performed: Trigger point injection Indication localized myofascial pain Patient was consented and cleaned with alcohol bupivacaine was injected 5 cc localized to the area of concern with significant improvement in symptoms no bleeding or complications Critical Care Critical Care Time Critical Care Time: No
[2024-11-13 10:22] VITALS: BP 129/80; PULSE 56; RESP 16; TEMP 36.7; O2SAT 99
[2024-11-13 10:25] VITALS: BP 129/80; PULSE 53; O2SAT 99
== END 2024-11-13 10:22 | disposition home or self-care (01) ==
PROVIDERS: Emergency Provider Student in an Organized Health Care Education/Training Program; PCP Nurse Practitioner Family
DX: M79.672 Pain in left foot (principal)
CPT/HCPCS: 73630; 99283

== ENCOUNTER 2024-11-14 08:23 | Day surgery (SDC) | payer BC, SELFPAY ==
[2024-11-14 08:39] VITALS: BP 135/93; PULSE 81; RESP 16; TEMP 36.5; O2SAT 100; BMI 35.0
[2024-11-14 08:56] VITALS: BP 128/80; PULSE 61; RESP 18; O2SAT 96
[2024-11-14 08:57] VITALS: BP 128/80; PULSE 67; RESP 18; O2SAT 97
--- NOTE | 2024-11-14 09:05 | EXP.PAIN.PRO ---
Procedure Date: 11/14/24 Time: 09:05 Anesthesiologist:: Muriel Valdez APRN Complications:: None Pre-procedure Diagnosis:: Degenerative disc disease of lumbar spine with lumbar radiculopathy symptoms Post-procedure Diagnosis:: Same Indications for Procedure:: Patient is a pleasant 44-year-old female who presents today for intrathecal refill and reprogram. Today she rates her pain at 3 out of 10. She denies any new changes from her last visit regarding her back. Patient does state that she was just walking yesterday and somehow managed to roll her ankle and did have to come in for imaging. 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 Patient is currently managed with morphine 1 mg/mL with a daily dose of 0.3172 mg/day. She denies any side effects from this medication. She does state the last couple of increases have really seem to make a difference. She is also managed with compounded cream. Her Josemanuel has been reviewed and is appropriate. Physical Exam: General: Alert and oriented x3, no acute distress, pleasant and cooperative Lungs: Respirations even and unlabored, symmetrical chest expansion Eyes: PERRL Musculoskeletal: Flexion and extension of lumbar [spine] somewhat guarded secondary to pain, [antalgic gait noted] Neurological: Speech clear, no gross sensory deficit Procedure Details:: Informed consent was obtained and the risk and benefits of the procedure were explained to the patient. The patient had noninvasive monitoring placed including noninvasive blood pressure cuff and pulse oximeter. Patient's pump was interrogated. The area over the pump was cleansed with chlorhexidine as a cleansing solution. In sterile fashion the pump was accessed with a 22-gauge needle. Approximately 4.9 mls of the pump solution was removed and discarded appropriately. The pump was then refilled with 20 mL's of morphine 1 mg/mL. The needle was withdrawn and a bandage was placed over the puncture site. The infusion rate was reprogrammed and continued at morphine 0.3172 mg/day. The patient tolerated well with no complication. Plan and Disposition:: Patient tolerated her procedure well with no complications and was discharged neurologically intact. Patient will return to clinic on or before her next intrathecal refill date. We will see the patient back in the clinic at the next intrathecal refill. Patient has been instructed to contact the clinic with any concerns before the next appointment. Dr. De La Cruz has reviewed this note and agrees with this plan of care. This note was dictated using voice recognition software and make contain errors or omissions. -- It Is medically necessary for this patient to continue to have their intrathecal pump refilled at regular intervals. This patient had an intrathecal pain pump implanted after meeting criteria of chronic intractable pain for greater than 3 months and failing conservative treatments. Patient has committed and been compliant to the treatment plan and all planned follow up care. Since implantation of the intrathecal pain pump, the patient has had decreased pain and been more functional. Oral medications have been reduced including intake of oral opioids. Patient continues to do well with intrathecal therapy with decrease in pain symptoms and increase in functional status. Stopping intrathecal medications can lead to life threatening withdrawal, seizures, cardiac arrest, severe pain, and possible . Pumps that are not refilled at regular intervals can be damages and cause and need for replacement. We continually titrate dose and concentration to optimize pain relief and function. We are limited in concentration for certain drugs to safely deliver medications through the pump and stay within the recommendations from the Polyanalges[employer] Consensus Committee Guidelines. Depending on dose and concentration these pumps may need to be refilled sooner than 3 months as we titrate. A UDS is needed to verify patient's compliance with our office pain contract. This is ordered based off specific treatments related to chronic pain with the potential to abuse certain medications.
[2024-11-14 09:12] VITALS: BP 148/80; PULSE 78; RESP 16; O2SAT 98
== END 2024-11-14 09:12 | disposition home or self-care (01) ==
PROVIDERS: PCP Nurse Practitioner Family; Visit Provider Nurse Practitioner Family
DX: M51.16 Intervertebral disc disorders with radiculopathy, lumbar region (principal)
CPT/HCPCS: 62370

== ENCOUNTER 2024-12-03 09:12 | Outpatient (POV) | payer BC, SELFPAY ==
[2024-12-03 09:17] VITALS: BP 109/65; PULSE 60; RESP 18; O2SAT 96; BMI 35.0
--- NOTE | 2024-12-03 09:41 | P.PCN_ITS ---
Procedure Date: 12/03/24 Time: 09:41 Anesthesiologist:: Muriel Valdez APRN Complications:: None Pre-procedure Diagnosis:: Degenerative disc disease of cervical and lumbar spine with cervical and lumbar radiculopathy symptoms Post-procedure Diagnosis:: Same Indications for Procedure:: Patient is a pleasant 44-year-old female who presents today for x-ray follow-up of her cervical, lumbar and left hip. Today she rates her pain a 6 out of 10. She denies any new trauma or injury. Patient does state that her increased pain is partly related to the cold weather. Patient states she continues to have more neck pain that does not seem to do as well with her intrathecal pump. Patient is asking if there is anything we can do to provide additional coverage higher up. Patient is currently managed with morphine 1 mg/mL with a daily dose of 0.3172 mg/day. Patient denies any side effects from this medication. She is also managed with baclofen 5 mg twice daily and compounded cream. She is requesting refills on her baclofen. Her Josemanuel has been reviewed and is appropriate. Physical Exam: General: Alert and oriented x3, no acute distress, pleasant and cooperative Lungs: Respirations even and unlabored, symmetrical chest expansion Eyes: PERRL Musculoskeletal: Flexion and extension of lumbar [spine] somewhat guarded secondary to pain, [antalgic gait noted] Neurological: Speech clear, no gross sensory deficit Procedure Details:: Informed consent was obtained and the risk and benefits of the procedure were explained to the patient. Patient did have noninvasive monitoring was placed including noninvasive blood pressure cuff and pulse oximeter. Patient's pump was interrogated and was reprogrammed to flex dosing with a 15% increase. The patient tolerated the procedure well with no complications. Plan and Disposition:: Patient tolerated her adjustments well with no complications. Patient does have flex dosing of 0.0104 mg every 2 hours and the base rate of 0.2402 mg. I did review over her x-ray imaging. I will tentatively give her a appointment for Sunday in case the flex dosing is not a good fit and she wants to resume continuous flow. Patient was counseled that she can cancel this appointment if needed. I will send in a 3-month supply of her baclofen. Patient will return to clinic on Sunday for possible intrathecal adjustment. We will see the patient back in the clinic at the next intrathecal refill. Patient has been instructed to contact the clinic with any concerns before the next appointment. Dr. De La Cruz has reviewed this note and agrees with this plan of care. This note was dictated using voice recognition software and make contain errors or omissions. -- It Is medically necessary for this patient to continue to have their intrathecal pump refilled at regular intervals. This patient had an intrathecal pain pump implanted after meeting criteria of chronic intractable pain for greater than 3 months and failing conservative treatments. Patient has committed and been compliant to the treatment plan and all planned follow up care. Since implantation of the intrathecal pain pump, the patient has had decreased pain and been more functional. Oral medications have been reduced including intake of oral opioids. Patient continues to do well with intrathecal therapy with decrease in pain symptoms and increase in functional status. Stopping in trathecal medications can lead to life threatening withdrawal, seizures, cardiac arrest, severe pain, and possible . Pumps that are not refilled at regular intervals can be damages and cause and need for replacement. We continually titrate dose and concentration to optimize pain relief and function. We are limited in concentration for certain drugs to safely deliver medications through the pump and stay within the recommendations from the Polyanalgesic Consensus Committee Guidelines. Depending on dose and concentration these pumps may need to be refilled sooner than 3 months as we titrate. A UDS is needed to verify patient's compliance with our office pain contract. This is ordered based off specific treatments related to chronic pain with the potential to abuse certain medications.
== END 2024-12-03 23:59 | disposition home or self-care (01) ==
PROVIDERS: PCP Nurse Practitioner Family; Visit Provider Nurse Practitioner Family
DX: M50.10 Cervical disc disorder with radiculopathy, unspecified cervical region (principal); M51.16 Intervertebral disc disorders with radiculopathy, lumbar region
CPT/HCPCS: 62368; 99212; 99213; G0463

== ENCOUNTER 2024-12-05 08:40 | Outpatient (POV) | payer BC, SELFPAY ==
[2024-12-05 09:07] VITALS: BP 105/60; PULSE 62; RESP 14; O2SAT 98; BMI 35.0
--- NOTE | 2024-12-05 09:39 | EXP.PAIN.PRO ---
Procedure Date: 12/05/24 Time: 09:25 Anesthesiologist:: Muriel Valdez APRN Complications:: None Pre-procedure Diagnosis:: Degenerative disc disease of cervical and lumbar spine with cervical and lumbar radiculopathy symptoms Post-procedure Diagnosis:: Same Indications for Procedure:: Patient is a pleasant 44-year-old female who presents today for follow-up of her intrathecal pump changes to flex dosing. Today she rates her pain a 7 out of 10 in her low back. She states that the flex dosing did make significant improvement in her neck however she feels like it took away from the medication getting to her overall low back pain. Patient is asking if we can still make additional adjustments to her dosage. Patient is currently managed with flex dosing of morphine 1 mg/mL with a daily dose of 0.365 mg/day patient is also managed with baclofen 5 mg twice a day and compounded cream. Her Josemanuel has been reviewed and is appropriate. Physical Exam: General: Alert and oriented x3, no acute distress, pleasant and cooperative Lungs: Respirations even and unlabored, symmetrical chest expansion Eyes: PERRL Musculoskeletal: Flexion and extension of lumbar [spine] somewhat guarded secondary to pain, [antalgic gait noted] Neurological: Speech clear, no gross sensory deficit Procedure Details:: Informed consent was obtained and the risk and benefits of the procedure were explained to the patient. Patient did have noninvasive monitoring was placed including noninvasive blood pressure cuff and pulse oximeter. Patient's pump was interrogated and was reprogrammed to morphine 0.4498 mg/day. The patient tolerated the procedure well with no complications. Plan and Disposition:: Patient tolerated her intrathecal increase with no complications and was discharged neurologically intact. Patient will return to clinic in 3 weeks for her intrathecal refill and reprogram. Patient was counseled that if she needs a sooner to feel free to reach out for an additional appointment. Patient agrees with this plan of care. We will see the patient back in the clinic at the next intrathecal refill. Patient has been instructed to contact the clinic with any concerns before the next appointment. Dr. De La Cruz has reviewed this note and agrees with this plan of care. This note was dictated using voice recognition software and make contain errors or omissions. -- It Is medically necessary for this patient to continue to have their intrathecal pump refilled at regular intervals. This patient had an intrathecal pain pump implanted after meeting criteria of chronic intractable pain for greater than 3 months and failing conservative treatments. Patient has committed and been compliant to the treatment plan and all planned follow up care. Since implantation of the intrathecal pain pump, the patient has had decreased pain and been more functional. Oral medications have been reduced including intake of oral opioids. Patient continues to do well with intrathecal therapy with decrease in pain symptoms and increase in functional status. Stopping intrathecal medications can lead to life threatening withdrawal, seizures, cardiac arrest, severe pain, and possible . Pumps that are not refilled at regular intervals can be damages and cause and need for replacement. We continually titrate dose and concentration to optimize pain relief and function. We are limited in concentration for certain drugs to safely deliver medications through the pump and stay within the recommendations from the Polyanalgesic Consensus Committee Guidelines. Depending on dose and concentration these pumps may need to be refilled sooner than 3 months as we titrate. A UDS is needed to verify patient's compliance with our office pain contract. This is ordered based off specific treatments related to chronic pain with the potential to abuse certain medications.
== END 2024-12-05 23:59 | disposition home or self-care (01) ==
PROVIDERS: PCP Nurse Practitioner Family; Visit Provider Nurse Practitioner Family
DX: M50.10 Cervical disc disorder with radiculopathy, unspecified cervical region (principal); M51.16 Intervertebral disc disorders with radiculopathy, lumbar region
CPT/HCPCS: 62368; 99212; 99213; G0463

== ENCOUNTER 2024-12-26 09:38 | Day surgery (SDC) | payer BC, SELFPAY ==
[2024-12-26 09:44] VITALS: BP 117/79; PULSE 60; RESP 16; TEMP 36.8; O2SAT 97; BMI 36.3
--- NOTE | 2024-12-26 09:49 | P.PCN_ITS ---
Procedure Date: 12/26/24 Time: 09:59 Anesthesiologist:: Muriel Valdez APRN Complications:: None Pre-procedure Diagnosis:: Degenerative disc disease of lumbar spine with lumbar radiculopathy symptom Post-procedure Diagnosis:: Same Indications for Procedure:: Patient is a pleasant 44-year-old female who presents today for intrathecal refill and reprogram. Today she rates her pain a 4 out of 10. She denies any new trauma or injury. Patient does state that the flex dosing in her pump is working great to provide coverage for both her low back and neck symptoms. Patient is currently managed with morphine 1 mg/mL with a daily dose of 0.365 mg/day. She denies any side effects. Patient is also managed with compounded cream and baclofen 5 mg twice a day. Her Josemanuel has been reviewed and is appropriate. Physical Exam: General: Alert and oriented x3, no acute distress, pleasant and cooperative Lungs: Respirations even and unlabored, symmetrical chest expansion Eyes: PERRL Musculoskeletal: Flexion and extension of lumbar [spine] somewhat guarded secondary to pain, [antalgic gait noted] Neurological: Speech clear, no gross sensory deficit Procedure Details:: Informed consent was obtained and the risk and benefits of the procedure were explained to the patient. The patient had noninvasive monitoring placed including noninvasive blood pressure cuff and pulse oximeter. Patient's pump was interrogated. The area over the pump was cleansed with chlorhexidine as a cleansing solution. In sterile fashion the pump was accessed with a 22-gauge needle. Approximately 3 mls of the pump solution was removed and discarded appropriately. The pump was then refilled with 20 mL's of morphine 2 mg/mL. The needle was withdrawn and a bandage was placed over the puncture site. The infusion rate was reprogrammed and continued at morphine 0.365 mg/day flex dosing. The patient tolerated well with no complication. Plan and Disposition:: Patient tolerated the procedure well with no complications and was discharged neurologically intact. Patient is having a concentration change today to go from morphine 1 mg to morphine 2 mg. We did have this discussion regarding the bridge bolus for changing the amount. Patient acknowledges understanding. Patient will return to clinic on or before their next intrathecal refill date. We will see the patient back in the clinic at the next intrathecal refill. Patient has been instructed to contact the clinic with any concerns before the next appointment. Dr. De La Cruz has reviewed this note and agrees with this plan of care. This note was dictated using voice recognition software and make contain errors or omissions. -- It Is medically necessary for this patient to continue to have their intrathecal pump refilled at regular intervals. This patient had an intrathecal pain pump implanted after meeting criteria of chronic intractable pain for greater than 3 months and failing conservative treatments. Patient has committed and been c ompliant to the treatment plan and all planned follow up care. Since implantation of the intrathecal pain pump, the patient has had decreased pain and been more functional. Oral medications have been reduced including intake of oral opioids. Patient continues to do well with intrathecal therapy with decrease in pain symptoms and increase in functional status. Stopping intrathecal medications can lead to life threatening withdrawal, seizures, cardiac arrest, severe pain, and possible . Pumps that are not refilled at regular intervals can be damages and cause and need for replacement. We co ntinually titrate dose and concentration to optimize pain relief and function. We are limited in concentration for certain drugs to safely deliver medications through the pump and stay within the recommendations from the Polyanalgesic Consensus Committee Guidelines. Depending on dose and concentration these pumps may need to be refilled sooner than 3 months as we titrate. A UDS is needed to verify patient's compliance with our office pain contract. This is ordered based off specific treatments related to chronic pain with the potential to abuse certain medications.
[2024-12-26 09:55] VITALS: BP 115/81; PULSE 57; RESP 18; O2SAT 96
[2024-12-26 09:56] VITALS: BP 115/81; PULSE 55; RESP 18; O2SAT 96
[2024-12-26 10:38] VITALS: BP 108/66; PULSE 63; RESP 16; O2SAT 96
== END 2024-12-26 10:38 | disposition home or self-care (01) ==
PROVIDERS: PCP Nurse Practitioner Family; Visit Provider Nurse Practitioner Family
DX: M51.16 Intervertebral disc disorders with radiculopathy, lumbar region (principal)
CPT/HCPCS: 62370

== ENCOUNTER 2025-01-13 13:16 | Outpatient (CLI) | payer BC, SELFPAY ==
[2025-01-13 13:39] LABS: Blood Urea Nitrogen 12 mg/dl (7-17); Estimated Glomerular Filt Rate 92 ml/min (>60); GFR (African American) 111 ML/MIN (>60)
== END 2025-01-13 23:59 | disposition home or self-care (01) ==
LOC: RAD 13:17
PROVIDERS: PCP Nurse Practitioner Family; Visit Provider Nurse Practitioner
DX: Z01.812 Encounter for preprocedural laboratory examination (principal)
CPT/HCPCS: 36415; 82565; 84520

== ENCOUNTER 2025-02-11 13:24 | Outpatient (CLI) | payer BC, SELFPAY ==
--- NOTE | 2025-02-11 13:28 | CT_ITS ---
FINAL REPORT TECHNIQUE: CT examination of the left foot was performed after the intravenous administration of contrast. Axial images were obtained through the foot, and subsequent multiplanar reconstructions were performed. This study was performed with techniques to keep radiation doses as low as reasonably achievable (ALARA). Individualized dose reduction techniques using automated exposure control or adjustment of mA and/or kV according to the patient's size were employed. CLINICAL HISTORY: eval for Peroneal tear, edema, rupture, etc. heard pop in foot in november while walking, bruising pain and swelling around heal on lateral side of foot. COMPARISON: None FINDINGS: CT LEFT FOOT WITH CONTRAST: CT images of the left foot were obtained with multiplanar reconstructions. There is no evidence of fracture. Osteopenia is noted. There is no obvious soft tissue mass identified. The joints of the foot are unremarkable. The peroneus brevis and longus tendons show no evidence of a complete tear. However, MRI would be necessary for evaluation of a partial tear. No fluid collections are identified in the foot. IMPRESSION: No acute osseous abnormality is identified. No evidence of a complete tear of the peroneus brevis or longus tendons is seen. MRI is recommended to evaluate for a partial tear if clinically indicated. Reviewed, Interpreted and Dictated by Emily Palacios MD Transcribed by Keesha Appiah Authenticated and [facility]
[2025-02-11] MEDS: SODIUM CHLORIDE 0.9% 10ML SYR (RAD ONLY) 10 ML IV (13:49)
[2025-02-11] MEDS: IOPAMIDOL-370 (76%);100ML BOTTLE 75 ML IV (13:49)
== END 2025-02-11 23:59 | disposition home or self-care (01) ==
LOC: RAD 13:28
PROVIDERS: PCP Nurse Practitioner Family; Visit Provider Nurse Practitioner
DX: M79.672 Pain in left foot (principal); G57.82 Other specified mononeuropathies of left lower limb
CPT/HCPCS: 73701; Q9967

== ENCOUNTER 2025-03-06 09:58 | Day surgery (SDC) | payer BC, SELFPAY ==
--- NOTE | 2025-03-06 10:00 | P.HP_ITS ---
History of Present Illness *Admission Date: 03/06/25 *Reason for visit:: Intrathecal refill; degenerative disc *History of present illness: Degenerative disc disease [facility] Disclaimer: The information contained in this section may have been updated after the patient was seen, as this information can be updated by other users. Medical History Sleep apnea Urinary tract infection Kidney stone History of COVID-19 Asthma Migraine Eczema Allergies Palpitations History of anemia DDD (degenerative disc disease), lumbar DDD (degenerative disc disease), cervical CRPS (complex regional pain syndrome) Headache HLD (hyperlipidemia) HTN (hypertension) Surgical History History of left knee surgery S/P insertion of spinal cord stimulator History of cholecystectomy Family History Other Family history of cancer Family history of diabetes mellitus type II Family history of stroke Social History Smoking Status: Current every day smoker tobacco type: cigarettes packs per day: 1 alcohol intake: never substance use type: denies use current occupational status: other Travel in the last 8 weeks: None household members: spouse and family housing: house marital status: education level: college service: No caffeine: Yes special joshua needs: No do you feel safe at home: Yes victim of physical abuse: No victim of emotional abuse: No victim of sexual abuse: No would you like helpful sources: No Have you lived/traveled outside [place] in past 30 days?: No Contact w/someone who lives/traveled outside US past 30 days?: No Exposure to someone with infectious disease in past 14 days?: No Do you have a fever (greater than 100.4 F or 38 C)?: No Have you tested positive for COVID-19: No Exposed to someone with COVID-19 in past 14 days?: No Do you have a sore throat?: No Do you have a cough?: No Do you have any weakness?: No Do you have any diarrhea?: No Are you experiencing any unusual bleeding?: No Do you have any muscle aches/pain?: No Do you have any abdominal pain?: No Are you experiencing loss of taste or smell?: No Other Medical History Have you received the Flu Vaccine for this season: No Have you received the Pneumonia Vaccine: No Review of Systems Review of Systems Review of systems:: pertinent systems reviewed and negative unless documented below Review of systems (narrative): Review of Systems: General: No recent weight changes, no fever, no sleep disturbances Respiratory: No cough, no shortness of air, no recurring pulmonary infections Cardiovascular/peripheral vascular: No chest pain, no palpitations, no edema, no shortness of breath Gastrointestinal: No new onset incontinence, normal bowel movements reported Genitourinary: No new onset incontinence Musculoskeletal: Chronic back pain Psychiatric: [Normal mood/affect] Neurological: [Denies weakness in extremities], [denies balance issues] Constitutional Constitutional: Reports system reviewed and no additional complaints, except as documented Meds Home Medications and Allergies Home Medications ?Medication ?Instructions ?Recorded ?Confirmed ?Type lisinopril 40 mg tablet 40 mg PO DAILY High blood pressure 05/19/21 02/12/25 History metoprolol succinate 50 mg 50 mg PO DAILY High blood pressure 05/19/21 02/12/25 History tablet,extended release 24 hr escitalopram oxalate 20 mg tablet 40 mg PO DAILY Depression 04/17/23 02/12/25 History (Lexapro) furosemide 20 mg tablet 20 mg PO NEEDED PRN Fluid 08/21/23 02/12/25 History meloxicam 15 mg tablet 15 mg PO ONCE 08/21/23 02/12/25 History nifedipine 30 mg tablet,extended 30 mg PO DAILY 08/06/24 02/12/25 History release 24 hr rosuvastatin 10 mg tablet 10 mg PO DAILY 08/06/24 02/12/25 History bupropion HCl 150 mg 24 hr tablet, 150 mg PO DAILY Depression/Anxiety 08/20/24 02/12/25 History extended release (Wellbutrin XL) buspirone 10 mg tablet 10 mg PO BID #60 tabs 08/20/24 02/12/25 Rx cream base no.39 (bulk) (Versapro See Rx Instructions .Route .COMPLEX 08/20/24 02/12/25 History Cream Base topical) famotidine 40 mg tablet 40 mg PO BID Acid Reflux 08/20/24 02/12/25 History galcanezumab-gnlm 120 mg/mL See Rx Instructions .Route 08/20/24 02/12/25 History subcutaneous pen injector .COMPLEX Migraines (Emgality Pen) levonorgestrel (Mirena) 1 device intrauterine DIRECTED 08/20/24 02/12/25 History control/hormones spironolactone 50 mg tablet 50 mg PO DAILY High Blood Pressure 08/20/24 02/12/25 History ketoconazole 2 % topical cream 1 applic topical BID athletes foot 10/01/24 02/12/25 Rx #30 grams tizanidine 4 mg capsule (Zanaflex) 4 mg PO HS PRN other 10/15/24 02/12/25 History cholecalciferol (vitamin D3) 50 50 mcg PO DAILY 11/20/24 02/12/25 History mcg (2,000 unit) capsule mecobalamin (vitamin B12) 5,000 5,000 mcg PO DAILY 11/20/24 02/12/25 History mcg chewable tablet psyllium husk 0.52 gram capsule 0.52 g PO DAILY 11/20/24 02/12/25 History (Fiber-Caps (psyllium husk)) baclofen 5 mg tablet 5 mg PO BID #60 tabs 12/03/24 02/12/25 Rx mupirocin 2 % topical ointment 1 applic topical BID infection 14 12/09/24 02/12/25 Rx days #15 grams diclofenac sodium 1 % topical gel 4 g topical QID PRN pain #100 02/12/25 02/12/25 Rx grams New Prescriptions to Start Prescriptions: Allergies Allergy/AdvReac Type Severity Reaction Status Date / Time hydroxyzine Allergy Intermediate tongue Verified 02/12/25 11:05 swell Corticosteroids AdvReac Redness of Verified 02/12/25 11:05 (Glucocorticoids) Skin Exam Constitutional Constitutional: no acute distress *Routine HEENT Exam Head: Present normocephalic and atraumatic Eye: Present PERRL ENT: Present mucous membranes moist *Routine Neck Exam Neck: Present supple *Routine Respiratory Exam Respiratory: Present CTA bilaterally *Routine Cardiovascular Exam Cardiovascular: Present RRR *Routine Abdominal Exam Abdominal: Present soft *Routine Rectal Exam Rectal:: deferred *Routine Genitalia Exam Genitalia:: normal female *Routine Skin Exam Skin: Present intact *Routine Neurological Exam Neurological: Present alert and oriented X3 Routine Psychiatric Exam Psychiatric: Present normal affect Assessment and Plan *Assessment and plan (1) Degenerative joint disease (DJD) of lumbar spine: Status: Chronic Category: Medical Code(s): M47.816 - Spondylosis without myelopathy or radiculopathy, lumbar region (2) Lumbar spondylosis: Status: Chronic Category: Medical Code(s): M47.816 - Spondylosis without myelopathy or radiculopathy, lumbar region (3) Lumbar facet arthropathy: Status: Chronic Category: Medical Code(s): M47.816 - Spondylosis without myelopathy or radiculopathy, lumbar region Plan Patient has been instructed to contact the clinic with any concerns before the next appointment. Dr. De La Cruz has reviewed this note and agrees with this plan of care. This note was dictated using voice recognition software and make contain errors or omissions. All injections are used with Lidocaine, Bupivacaine and dexamethasone. Occasionally urine drug screen is needed to verify patient's compliance with our office pain contract. This is ordered based off specific treatments related to chronic pain with the potential to abuse certain medications.
--- NOTE | 2025-03-06 10:02 | EXP.PAIN.PRO ---
Procedure Date: 03/06/25 Time: 10:24 Anesthesiologist:: Muriel Valdez APRN Complications:: None Pre-procedure Diagnosis:: Degenerative disc disease lumbar spine, chronic pain syndrome Post-procedure Diagnosis:: Same Indications for Procedure:: Patient is a pleasant 44-year-old female who presents today for intrathecal refill and reprogram. Today she rates her pain a 5 out of 10. Patient denies any new trauma or injury. She does state that she has been having a little bit more overall low back pain that does seem to be worse in the mornings. Patient is asking for an adjustment if we can of her pump settings. Patient is currently on flex dosing with intrathecal morphine 2 mg/mL with a daily overall dose of 0.4442 mg/day. She denies any side effects. Her Josemanuel has been reviewed and is appropriate. Physical Exam: General: Alert and oriented x3, no acute distress, pleasant and cooperative Lungs: Respirations even and unlabored, symmetrical chest expansion Eyes: PERRL Musculoskeletal: Flexion and extension of lumbar [spine] somewhat guarded secondary to pain, [antalgic gait noted] Neurological: Speech clear, no gross sensory deficit Procedure Details:: Informed consent was obtained and the risk and benefits of the procedure were explained to the patient. The patient had noninvasive monitoring placed including noninvasive blood pressure cuff and pulse oximeter. Patient's pump was interrogated. The area over the pump was cleansed with chlorhexidine as a cleansing solution. In sterile fashion the pump was accessed with a 22-gauge needle. Approximately 4 mls of the pump solution was removed and discarded appropriately. The pump was then refilled with 20 mL's of morphine 2 mg/mL. The needle was withdrawn and a bandage was placed over the puncture site. The infusion rate was reprogrammed and increased 10% being 0.4922 mg/day. The patient tolerated well with no complication. Plan and Disposition:: Patient tolerated the procedure well with no complications and was discharged neurologically intact. Patient will return to clinic on or before their next intrathecal refill date. We will see the patient back in the clinic at the next intrathecal refill. Patient has been instructed to contact the clinic with any concerns before the next appointment. Dr. De La Cruz has reviewed this note and agrees with this plan of care. This note was dictated using voice recognition software and make contain errors or omissions. -- It Is medically necessary for this patient to continue to have their intrathecal pump refilled at regular intervals. This patient had an intrathecal pain pump implanted after meeting criteria of chronic intractable pain for greater than 3 months and failing conservative treatments. Patient has committed and been compliant to the treatment plan and all planned follow up care. Since implantation of the intrathecal pain pump, the patient has had decreased pain and been more functional. Oral medications have been reduced including intake of oral opioids. Patient continues to do well with intrathecal therapy with decrease in pain symptoms and increase in functional status. Stopping intrathecal medications can lead to life threatening withdrawal, seizures, cardiac arrest, severe pain, and possible . Pumps that are not refilled at regular intervals can be damages and cause and need for replacement. We continually titrate dose and concentration to optimize pain relief and function. We are limited in concentration for certain drugs to safely deliver medications through the pump and stay within the recommendations from the Polyanalgesic Consensus Committee Guidelines. Depending on dose and concentration these pumps may need to be refilled sooner than 3 months as we titrate. A UDS is needed to verify patient's compliance with our office pain contract. This is ordered based off specific treatments related to chronic pain with the potential to abuse certain medications.
[2025-03-06 10:07] VITALS: BP 128/79; PULSE 73; RESP 16; TEMP 36.8; O2SAT 96; BMI 37.0
[2025-03-06 10:10] VITALS: BP 119/79; PULSE 71; RESP 18; O2SAT 95
[2025-03-06 10:12] VITALS: BP 119/79; PULSE 71; RESP 18; O2SAT 95
[2025-03-06 10:33] VITALS: BP 128/83; PULSE 64; RESP 16; O2SAT 95
== END 2025-03-06 10:33 | disposition home or self-care (01) ==
PROVIDERS: PCP Nurse Practitioner Family; Visit Provider Nurse Practitioner Family
DX: G89.4 Chronic pain syndrome (principal); M51.369 Other intervertebral disc degeneration, lumbar region without mention of lumbar back pain or lower extremity pain
CPT/HCPCS: 62370; 99221

== ENCOUNTER 2025-05-08 09:26 | Day surgery (SDC) | payer BC, SELFPAY ==
--- NOTE | 2025-05-08 09:31 | EXP.PM.HP ---
History of Present Illness *Admission Date: 05/08/25 *Reason for visit:: Intrathecal l refill; DDD *History of present illness: Same [facility] Disclaimer: The information contained in this section may have been updated after the patient was seen, as this information can be updated by other users. Medical History Sleep apnea Urinary tract infection Kidney stone History of COVID-19 Asthma Migraine Eczema Allergies Palpitations History of anemia DDD (degenerative disc disease), lumbar DDD (degenerative disc disease), cervical CRPS (complex regional pain syndrome) Headache HLD (hyperlipidemia) HTN (hypertension) Surgical History History of left knee surgery S/P insertion of spinal cord stimulator History of cholecystectomy Family History Other Family history of cancer Family history of diabetes mellitus type II Family history of stroke Social History Smoking Status: Current every day smoker tobacco type: cigarettes packs per day: 1 alcohol intake: never substance use type: denies use current occupational status: other Travel in the last 8 weeks?: None household members: spouse and family housing: house marital status: education level: college service: No caffeine: Yes special joshua needs: No do you feel safe at home: Yes victim of physical abuse: No victim of emotional abuse: No victim of sexual abuse: No would you like helpful sources: No Have you lived/traveled outside US in past 30 days?: No Contact w/someone who lives/traveled outside US past 30 days?: No Exposure to someone with infectious disease in past 14 days?: No Do you have a fever (greater than 100.4 F or 38 C)?: No Have you tested positive for COVID-19?: No Exposed to someone with COVID-19 in past 14 days?: No Do you have a sore throat?: No Do you have a cough?: No Do you have any weakness?: No Do you have any diarrhea?: No Are you experiencing any unusual bleeding?: No Do you have any muscle aches/pain?: No Do you have any abdominal pain?: No Are you experiencing loss of taste or smell?: No Other Medical History Have you received the Flu Vaccine for this season: No Have you received the Pneumonia Vaccine: No Review of Systems Review of Systems Review of systems:: pertinent systems reviewed and negative unless documented below Review of systems (narrative): Review of Systems: General: No recent weight changes, no fever, no sleep disturbances Respiratory: No cough, no shortness of air, no recurring pulmonary infections Cardiovascular/peripheral vascular: No chest pain, no palpitations, no edema, no shortness of breath Gastrointestinal: No new onset incontinence, normal bowel movements reported Genitourinary: No new onset incontinence Musculoskeletal: Chronic back pain Psychiatric: [Normal mood/affect] Neurological: [Denies weakness in extremities], [denies balance issues] Meds Home Medications and Allergies Home Medications ?Medication ?Instructions ?Recorded ?Confirmed ?Type lisinopril 40 mg tablet 40 mg PO DAILY High blood pressure 05/19/21 05/08/25 History metoprolol succinate 50 mg 50 mg PO DAILY High blood pressure 05/19/21 05/08/25 History tablet,extended release 24 hr escitalopram oxalate 20 mg tablet 40 mg PO DAILY Depression 04/17/23 05/08/25 History (Lexapro) furosemide 20 mg tablet 20 mg PO NEEDED PRN Fluid 08/21/23 05/08/25 History meloxicam 15 mg tablet 15 mg PO ONCE 08/21/23 05/08/25 History nifedipine 30 mg tablet,extended 30 mg PO DAILY 08/06/24 05/08/25 History release 24 hr rosuvastatin 10 mg tablet 10 mg PO DAILY 08/06/24 05/08/25 History bupropion HCl 150 mg 24 hr tablet, 150 mg PO DAILY Depression/Anxiety 08/20/24 05/08/25 History extended release (Wellbutrin XL) buspirone 10 mg tablet 10 mg PO BID #60 tabs 08/20/24 05/08/25 Rx cream base no.39 (bulk) (Versapro See Rx Instructions .Route .COMPLEX 08/20/24 05/08/25 History Cream Base topical) famotidine 40 mg tablet 40 mg PO BID Acid Reflux 08/20/24 05/08/25 History galcanezumab-gnlm 120 mg/mL See Rx Instructions .Route 08/20/24 05/08/25 History subcutaneous pen injector .COMPLEX Migraines (Emgality Pen) levonorgestrel (Mirena) 1 device intrauterine DIRECTED 08/20/24 05/08/25 History control/hormones spironolactone 50 mg tablet 50 mg PO DAILY High Blood Pressure 08/20/24 05/08/25 History ketoconazole 2 % topical cream 1 applic topical BID athletes foot 10/01/24 05/08/25 Rx #30 grams tizanidine 4 mg capsule (Zanaflex) 4 mg PO HS PRN other 10/15/24 05/08/25 History cholecalciferol (vitamin D3) 50 50 mcg PO DAILY 11/20/24 05/08/25 History mcg (2,000 unit) capsule mecobalamin (vitamin B12) 5,000 5,000 mcg PO DAILY 11/20/24 05/08/25 History mcg chewable tablet psyllium husk 0.52 gram capsule 0.52 g PO DAILY 11/20/24 05/08/25 History (Fiber-Caps (psyllium husk)) baclofen 5 mg tablet 5 mg PO BID #60 tabs 12/03/24 05/08/25 Rx mupirocin 2 % topical ointment 1 applic topical BID infection 14 12/09/24 05/08/25 Rx days #15 grams diclofenac sodium 1 % topical gel 4 g topical QID PRN pain #100 02/12/25 05/08/25 Rx grams New Prescriptions to Start Prescriptions: Allergies Allergy/AdvReac Type Severity Reaction Status Date / Time hydroxyzine Allergy Intermediate tongue Verified 02/12/25 11:05 swell Corticosteroids AdvReac Redness of Verified 02/12/25 11:05 (Glucocorticoids) Skin Exam Constitutional Constitutional: no acute distress *Routine HEENT Exam Head: Present normocephalic and atraumatic Eye: Present PERRL ENT: Present mucous membranes moist *Routine Neck Exam Neck: Present supple *Routine Respiratory Exam Respiratory: Present CTA bilaterally *Routine Cardiovascular Exam Cardiovascular: Present RRR *Routine Abdominal Exam Abdominal: Present soft *Routine Rectal Exam Rectal:: deferred *Routine Genitalia Exam Genitalia:: deferred Routine Back/Spine/Pelvis Exam Back/Spine: Present pain with flexion *Routine Skin Exam Skin: Present intact and warm *Routine Neurological Exam Neurological: Present alert and oriented X3 Routine Psychiatric Exam Psychiatric: Present normal affect and normal thought process Assessment and Plan *Assessment and plan (1) Degenerative joint disease (DJD) of lumbar spine: Status: Chronic Category: Medical Code(s): M47.816 - Spondylosis without myelopathy or radiculopathy, lumbar region (2) Low back pain: Status: Chronic Category: Medical Code(s): M54.50 - Low back pain, unspecified (3) Lumbar spondylosis: Status: Chronic Category: Medical Code(s): M47.816 - Spondylosis without myelopathy or radiculopathy, lumbar region (4) Lumbar facet arthropathy: Status: Chronic Category: Medical Code(s): M47.816 - Spondylosis without myelopathy or radiculopathy, lumbar region Plan Patient has been instructed to contact the clinic with any concerns before the next appointment. Dr. De La Cruz has reviewed this note and agrees with this plan of care. This note was dictated using voice recognition software and make contain errors or omissions. All injections are used with Lidocaine, Bupivacaine and dexamethasone. Occasionally urine drug screen is needed to verify patient's compliance with our office pain contract. This is ordered based off specific treatments related to chronic pain with the potential to abuse certain medications.
[2025-05-08 09:33] VITALS: BP 127/75; PULSE 56; RESP 18; O2SAT 95; BMI 37.2
--- NOTE | 2025-05-08 09:33 | P.PCN_ITS ---
Procedure Date: 05/08/25 Time: 09:44 Anesthesiologist:: Muriel Valdez APRN Complications:: None Pre-procedure Diagnosis:: Degenerative disc disease of lumbar spine, chronic back pain Post-procedure Diagnosis:: Same Indications for Procedure:: Patient is a pleasant 44-year-old female who presents today for intrathecal refill and reprogram. Today she rates her pain a 5 out of 10. She denies any new falls or injuries. Patient is still in a soft cast and boot on her foot and that this is still going to go on for probably at least another month if not longer. Patient is requesting a small increase on her pump to help with her overall back and neck pain. Patient is on flex dosing.Patient is currently managed with morphine 2 mg/mL with a daily dose of 0.4922 mg/day. She denies any side effects. Her Josemanuel has been reviewed and is appropriate. Physical Exam: General: Alert and oriented x3, no acute distress, pleasant and cooperative Lungs: Respirations even and unlabored, symmetrical chest expansion Eyes: PERRL Musculoskeletal: Flexion and extension of lumbar [spine] somewhat guarded secondary to pain, [antalgic gait noted] Neurological: Speech clear, no gross sensory deficit Procedure Details:: Informed consent was obtained and the risk and benefits of the procedure were explained to the patient. The patient had noninvasive monitoring placed including noninvasive blood pressure cuff and pulse oximeter. Patient's pump was interrogated. The area over the pump was cleansed with chlorhexidine as a cleansing solution. In sterile fashion the pump was accessed with a 22-gauge needle. Approximately 4 mls of the pump solution was removed and discarded appropriately. The pump was then refilled with 20 mL's of morphine 2 mg/mL. The needle was withdrawn and a bandage was placed over the puncture site. The infusion rate was reprogrammed and increased 10% to 0.5416 mg/day. The patient tolerated well with no complication. Plan and Disposition:: Patient tolerated the procedure well with no complications and was discharged neurologically intact. Patient will return to clinic on or before their next intrathecal refill date. We will see the patient back in the clinic at the next intrathecal refill. Patient has been instructed to contact the clinic with any concerns before the next appointment. Dr. De La Cruz has reviewed this note and agrees with this plan of care. This note was dictated using voice recognition software and make contain errors or omissions. -- It Is medically necessary for this patient to continue to have their intrathecal pump refilled at regular intervals. This patient had an intrathecal pain pump implanted after meeting criteria of chronic intractable pain for greater than 3 months and failing conservative treatments. Patient has committed and been compliant to the treatment plan and all planned follow up care. Since implantation of the intrathecal pain pump, the patient has had decreased pain and been more functional. Oral medications have been reduced including intake of oral opioids. Patient continues to do well with intrathecal therapy with decrease in pain symptoms and increase in functional status. Stopping intratheca l medications can lead to life threatening withdrawal, seizures, cardiac arrest, severe pain, and possible . Pumps that are not refilled at regular intervals can be damages and cause and need for replacement. We continually titrate dose and concentration to optimize pain relief and function. We are limited in concentration for certain drugs to safely deliver medications through the pump and stay within the recommendations from the Polyanalgesic Consensus Committee Guidelines. Depending on dose and concentration these pumps may need to be refilled sooner than 3 months as we titrate. A UDS is needed to verify patient's compliance with our office pain contract. This is ordered based off specific treatments related to chronic pain with the potential to abuse certain medications.
[2025-05-08 09:38] VITALS: BP 106/79; PULSE 59; RESP 18; O2SAT 99
[2025-05-08 09:50] VITALS: BP 109/72; PULSE 83; RESP 18; O2SAT 100
== END 2025-05-08 09:50 | disposition home or self-care (01) ==
PROVIDERS: PCP Nurse Practitioner Family; Visit Provider Nurse Practitioner Family
DX: Z45.1 Encounter for adjustment and management of infusion pump (principal); M51.360 Other intervertebral disc degeneration, lumbar region with discogenic back pain only; M47.816 Spondylosis without myelopathy or radiculopathy, lumbar region; M50.30 Other cervical disc degeneration, unspecified cervical region; I10 Essential (primary) hypertension; E78.5 Hyperlipidemia, unspecified; G90.50 Complex regional pain syndrome I, unspecified; G43.909 Migraine, unspecified, not intractable, without status migrainosus; F17.210 Nicotine dependence, cigarettes, uncomplicated; Z79.899 Other long term (current) drug therapy; Z79.620 Long term (current) use of immunosuppressive biologic; Z88.8 Allergy status to other drugs, medicaments and biological substances; Z97.5 Presence of (intrauterine) contraceptive device
CPT/HCPCS: 62370

== ENCOUNTER 2025-07-03 10:21 | Day surgery (SDC) | payer BC, SELFPAY ==
--- NOTE | 2025-07-03 10:32 | EXP.PM.HP ---
History of Present Illness *Admission Date: 07/03/25 *Reason for visit:: Intrathecal refill; DDD *History of present illness: Same [facility] Disclaimer: The information contained in this section may have been updated after the patient was seen, as this information can be updated by other users. Medical History Sleep apnea Urinary tract infection Kidney stone History of COVID-19 Asthma Migraine Eczema Allergies Palpitations History of anemia DDD (degenerative disc disease), lumbar DDD (degenerative disc disease), cervical CRPS (complex regional pain syndrome) Headache HLD (hyperlipidemia) HTN (hypertension) Surgical History History of left knee surgery S/P insertion of spinal cord stimulator History of cholecystectomy Family History Other Family history of cancer Family history of diabetes mellitus type II Family history of stroke Social History Smoking Status: Current every day smoker tobacco type: cigarettes packs per day: 1 pack-years: 20 alcohol intake: never substance use type: denies use current occupational status: other Travel in the last 8 weeks?: None household members: spouse and family housing: house marital status: education level: college service: No caffeine: Yes special joshua needs: No do you feel safe at home: Yes victim of physical abuse: No victim of emotional abuse: No victim of sexual abuse: No would you like helpful sources: No Have you lived/traveled outside [place] in past 30 days?: No Contact w/someone who lives/traveled outside [place] past 30 days?: No Exposure to someone with infectious disease in past 14 days?: No Do you have a fever (greater than 100.4 F or 38 C)?: No Have you tested positive for COVID-19?: No Exposed to someone with COVID-19 in past 14 days?: No Do you have a sore throat?: No Do you have a cough?: No Do you have any weakness?: No Do you have any diarrhea?: No Are you experiencing any unusual bleeding?: No Do you have any muscle aches/pain?: No Do you have any abdominal pain?: No Are you experiencing loss of taste or smell?: No Other Medical History Have you received the Flu Vaccine for this season: No Have you received the Pneumonia Vaccine: No Meds Home Medications and Allergies Home Medications ?Medication ?Instructions ?Recorded ?Confirmed ?Type lisinopril 40 mg tablet 40 mg PO DAILY High blood pressure 05/19/21 05/08/25 History metoprolol succinate 50 mg 50 mg PO DAILY High blood pressure 05/19/21 05/08/25 History tablet,extended release 24 hr escitalopram oxalate 20 mg tablet 40 mg PO DAILY Depression 04/17/23 05/08/25 History (Lexapro) furosemide 20 mg tablet 20 mg PO NEEDED PRN Fluid 08/21/23 05/08/25 History meloxicam 15 mg tablet 15 mg PO ONCE 08/21/23 05/08/25 History nifedipine 30 mg tablet,extended 30 mg PO DAILY 08/06/24 05/08/25 History release 24 hr rosuvastatin 10 mg tablet 10 mg PO DAILY 08/06/24 05/08/25 History bupropion HCl 150 mg 24 hr tablet, 150 mg PO DAILY Depression/Anxiety 08/20/24 05/08/25 History extended release (Wellbutrin XL) buspirone 10 mg tablet 10 mg PO BID #60 tabs 08/20/24 05/08/25 Rx cream base no.39 (bulk) (Versapro See Rx Instructions .Route .COMPLEX 08/20/24 05/08/25 History Cream Base topical) famotidine 40 mg tablet 40 mg PO BID Acid Reflux 08/20/24 05/08/25 History galcanezumab-gnlm 120 mg/mL See Rx Instructions .Route 08/20/24 05/08/25 History subcutaneous pen injector .COMPLEX Migraines (Emgality Pen) levonorgestrel (Mirena) 1 device intrauterine DIRECTED 08/20/24 05/08/25 History control/hormones spironolactone 50 mg tablet 50 mg PO DAILY High Blood Pressure 08/20/24 05/08/25 History ketoconazole 2 % topical cream 1 applic topical BID athletes foot 10/01/24 05/08/25 Rx #30 grams tizanidine 4 mg capsule (Zanaflex) 4 mg PO HS PRN other 10/15/24 05/08/25 History cholecalciferol (vitamin D3) 50 50 mcg PO DAILY 11/20/24 05/08/25 History mcg (2,000 unit) capsule mecobalamin (vitamin B12) 5,000 5,000 mcg PO DAILY 11/20/24 05/08/25 History mcg chewable tablet psyllium husk 0.52 gram capsule 0.52 g PO DAILY 11/20/24 05/08/25 History (Fiber-Caps (psyllium husk)) baclofen 5 mg tablet 5 mg PO BID #60 tabs 12/03/24 05/08/25 Rx mupirocin 2 % topical ointment 1 applic topical BID infection 14 12/09/24 05/08/25 Rx days #15 grams diclofenac sodium 1 % topical gel 4 g topical QID PRN pain #100 02/12/25 05/08/25 Rx grams New Prescriptions to Start Prescriptions: Allergies Allergy/AdvReac Type Severity Reaction Status Date / Time hydroxyzine Allergy Intermediate tongue Verified 02/12/25 11:05 swell Corticosteroids AdvReac Redness of Verified 02/12/25 11:05 (Glucocorticoids) Skin Exam *Routine HEENT Exam Head: Present normocephalic and atraumatic Eye: Present PERRL ENT: Present mucous membranes moist *Routine Neck Exam Neck: Present supple *Routine Respiratory Exam Respiratory: Present CTA bilaterally *Routine Cardiovascular Exam Cardiovascular: Present RRR *Routine Abdominal Exam Abdominal: Present soft *Routine Rectal Exam Rectal:: deferred *Routine Genitalia Exam Genitalia:: deferred Routine Back/Spine/Pelvis Exam Back/Spine: Present pain with flexion *Routine Skin Exam Skin: Present intact and warm *Routine Neurological Exam Neurological: Present alert and oriented X3
--- NOTE | 2025-07-03 10:33 | P.PCN_ITS ---
Procedure Date: 07/03/25 Time: 11:03 Anesthesiologist:: Muriel Valdez APRN Complications:: None Pre-procedure Diagnosis:: Degenerative disc disease of lumbar spine with lumbar radiculopathy symptoms Post-procedure Diagnosis:: Same Indications for Procedure:: Patient is a pleasant 44-year-old female who presents today for intrathecal refill and reprogram. She rates her pain a 6 out of 10. She does state from her last visit she ended up getting another tire on the opposite leg and now she is in boots bilaterally. Patient does state that it is also affecting her low back and that she is scheduled to see neurosurgery at the beginning of July. Patient states that they did even try some PRP injections on the left side but as of right now it is not made any difference. They are discussing going ahead and doing PRP injections on the right side coming up. Patient is currently managed with morphine 2 mg/mL with a daily dose of 0.5416 mg/day. She denies any side effects but is requesting an increase. Her Josemanuel has been reviewed and is appropriate. Physical Exam: General: Alert and oriented x3, no acute distress, pleasant and cooperative Lungs: Respirations even and unlabored, symmetrical chest expansion Eyes: PERRL Musculoskeletal: Flexion and extension of lumbar [spine] somewhat guarded secondary to pain, [antalgic gait noted] Neurological: Speech clear, no gross sensory deficit Procedure Details:: informed consent was obtained and the risk and benefits of the procedure were explained to the patient. The patient had noninvasive monitoring placed including noninvasive blood pressure cuff and pulse oximeter. Patient's pump was interrogated. The area over the pump was cleansed with chlorhexidine as a cleansing solution. In sterile fashion the pump was accessed with a 22-gauge needle. Approximately 5 mls of the pump solution was removed and discarded appropriately. The pump was then refilled with 20 mL's of morphine 3 mg/mL. The needle was withdrawn and a bandage was placed over the puncture site. The infusion rate was reprogrammed and increased to 0.6219 mg/day. The patient tolerated well with no complication. Plan and Disposition:: Patient tolerated the procedure well with no complications and was discharged neurologically intact. Patient was counseled that we are doing a concentration change today. Patient is on flex dosing. Patient will return to clinic on or before their next intrathecal refill date. We will see the patient back in the clinic at the next intrathecal refill. Patient has been instructed to contact the clinic with any concerns before the next appointment. Dr. De La Cruz has reviewed this note and agrees with this plan of care. This note was dictated using voice recognition software and make contain errors or omissions. -- It Is medically necessary for this patient to continue to have their intrathecal pump refilled at regular intervals. This patient had an intrathecal pain pump implanted after meeting criteria of chronic intractable pain for greater than 3 months and failing conservative treatments. Patient has committed and been compliant to the treatment plan and all planned follow up care. Since im plantation of the intrathecal pain pump, the patient has had decreased pain and been more functional. Oral medications have been reduced including intake of oral opioids. Patient continues to do well with intrathecal therapy with decrease in pain symptoms and increase in functional status. Stopping intrathecal medications can lead to life threatening withdrawal, seizures, cardiac arrest, severe pain, and possible . Pumps that are not refilled at regular intervals can be damages and cause and need for replacement. We continually titrate dose and concentration to optimize pain relief and function. We are limited in concentration for certain drugs to safely deliver medications through the pump and stay within the recommendations from the Polyanalgesic Consensus Committee Guidelines. Depending on dose and concentration these pumps may need to be refilled sooner than 3 months as we titrate. A UDS is needed to verify patient's compliance with our office pain contract. This is ordered based off specific treatments related to chronic pain with the potential to abuse certain medications.
[2025-07-03 10:37] VITALS: BP 118/81; PULSE 72; RESP 18; O2SAT 96; BMI 35.4
[2025-07-03 11:16] VITALS: BP 111/78; PULSE 61; RESP 16; O2SAT 99
[2025-07-03 11:20] VITALS: BP 118/81; PULSE 72; RESP 18; O2SAT 96
== END 2025-07-03 11:16 | disposition home or self-care (01) ==
PROVIDERS: PCP Nurse Practitioner Family; Visit Provider Nurse Practitioner Family
DX: Z45.1 Encounter for adjustment and management of infusion pump (principal); M51.16 Intervertebral disc disorders with radiculopathy, lumbar region; J45.909 Unspecified asthma, uncomplicated; L30.9 Dermatitis, unspecified; E78.5 Hyperlipidemia, unspecified; I10 Essential (primary) hypertension; G47.30 Sleep apnea, unspecified; F17.210 Nicotine dependence, cigarettes, uncomplicated; Z88.8 Allergy status to other drugs, medicaments and biological substances; Z79.899 Other long term (current) drug therapy
CPT/HCPCS: 62370